=== PATIENT | male | born 1990 | race Two or more races ===

== ENCOUNTER 2016-12-12 12:58 | Emergency (ER) | payer SELFPAY ==
[~2016-12-12] VITALS: Ht 172.7 cm; Wt 73.9 kg
[2016-12-12 21:15] LABS: Urine Bilirubin Negative (Negative); Urine Blood Negative /uL (Negative); Urine Color Yellow (Yellow); Urine Glucose Normal (Normal); Urine Ketone Negative (Negative); Urine Nitrite Negative (Negative); Urine RBC <1 /hpf (0 - 3); Urine Squamous Epithelial Cell FEW /hpf (<5); Urine Urobilinogen Normal (Negative)
[2016-12-12] MEDS ORDERED: ACYCLOVIR 400 MG TAB PO ONE (22:15)
[2016-12-12] MEDS ORDERED: ASPirin 325 MG TAB PO ONE (22:15)
[2016-12-12] MEDS ORDERED: methylPREDNISolone SOD SUCC 125 MG/2 ML VL IV ONE (22:15)
[2016-12-13 00:08] LABS: Basophils # (auto) 0 uL; Basophils % (auto) 0.1 % (0.0-2.0); Eosinophils # (auto) 0 uL; Hematocrit 46.9 % (41.0-53.0); Hemoglobin 16.2 g/dL (13.5-17.5); Lymphocytes # (auto) 1.1 uL; Lymphocytes % (auto) 8.7 % (10.0-50.0); Mean Corpuscular Hemoglobin 31.4 pg (28.0-32.0); Mean Corpuscular Hgb Conc. 34.5 g/dL (32.0-36.0); Mean Corpuscular Volume 90.9 fL (80.0-100.0); Mean Platelet Volume 7.6 fL (7.4-10.4); Monocytes # (auto) 0.8 uL; Monocytes % (auto) 6.2 % (0.0-12.0); Neutrophils # (auto) 10.5 uL; Platelet Count (auto) 270 10^3/uL (140-450); Red Cell Distribution Width 13.8 % (11.6-16.0); White Blood Cell 12.3 10^3/uL (4.4-10.8)
[2016-12-13 00:23] VITALS: BP 131/79
[2016-12-13 00:27] LABS: Albumin 3.8 g/dL (3.4-5.0); Calcium 8.7 mg/dL (8.5-10.1); Potassium 4.1 mmol/L (3.5-5.1)
[2016-12-13 00:29] LABS: BUN/Creatinine Ratio 8.7
[2016-12-13 00:31] LABS: Bilirubin, Total 0.5 mg/dL (0.2-1.0); Total Protein 7.6 g/dL (6.4-8.2)
== END 2016-12-13 00:41 | disposition home or self-care (01) ==
LOC: ER 12:58
DX: G51.0 Bell's palsy (principal); F17.210 Nicotine dependence, cigarettes, uncomplicated; R51 Headache; F12.10 Cannabis abuse, uncomplicated; R20.0 Anesthesia of skin
CPT/HCPCS: 36415; 70450; 80053; 81001; 85025; 93005; 96374; 99285; J2930

== ENCOUNTER 2017-04-06 04:13 | Emergency (ER) | payer MEDICAID ==
[~2017-04-06] VITALS: Ht 175.3 cm; Wt 79.4 kg
[2017-04-06 04:26] VITALS: BP 122/77
== END 2017-04-06 07:31 | disposition left against medical advice (07) ==
LOC: ER 04:13
DX: M25.512 Pain in left shoulder (principal); M25.511 Pain in right shoulder; Z53.21 Procedure and treatment not carried out due to patient leaving prior to being seen by health care provider

== ENCOUNTER 2017-11-25 14:03 | Emergency (ER) | payer MEDICAID ==
[~2017-11-25] VITALS: Ht 172.7 cm; Wt 77.1 kg
[2017-11-25 16:46] VITALS: BP 144/88
== END 2017-11-25 17:09 | disposition home or self-care (01) ==
LOC: ER 14:03
DX: R07.81 Pleurodynia (principal); K92.0 Hematemesis; F17.210 Nicotine dependence, cigarettes, uncomplicated; W17.2XXA Fall into hole, initial encounter; Y93.55 Activity, bike riding; Y92.488 Other paved roadways as the place of occurrence of the external cause; Y99.8 Other external cause status
CPT/HCPCS: 71046

== ENCOUNTER 2021-04-16 12:26 | Emergency (ER) | payer MEDICAID ==
[~2021-04-16] VITALS: Ht 167.6 cm; Wt 72.6 kg
[2021-04-16 13:00] VITALS: BP 118/86
[2021-04-16] MEDS ORDERED: ACETAMINOPHEN 500 MG TAB PO ONE (13:45)
[2021-04-16] MEDS ORDERED: SODIUM CHLORIDE 0.9% 1,000 ML IV ONE (15:45)
[2021-04-16 16:01] LABS: Basophils # (auto) 0.1 10 ^3/uL (0-0.2); Basophils % (auto) 0.8 % (0.0-2.0); Eosinophils # (auto) 0.1 10 ^3/uL (0-0.8); Eosinophils % (auto) 0.8 % (0.0-7.0); Hematocrit 37.6 % (41.0-53.0); Hemoglobin 13.1 g/dL (13.5-17.5); Lymphocytes # (auto) 1.7 10 ^3/uL (0.4-5.4); Lymphocytes % (auto) 17.8 % (10.0-50.0); Mean Corpuscular Hemoglobin 31.3 pg (28.0-32.0); Mean Corpuscular Hgb Conc. 34.8 g/dL (32.0-36.0); Mean Corpuscular Volume 89.9 fL (80.0-100.0); Monocytes # (auto) 1.1 10 ^3/uL (0-1.3); Monocytes % (auto) 11.8 % (0.0-12.0); Neutrophils # (auto) 6.5 10 ^3/uL (1.6-8.6); Neutrophils % (auto) 68.8 % (37.0-80.0); Nucleated Red Blood Cells % 0.1 %; Platelet Count (auto) 275 10^3/uL (140-450); Red Blood Cells 4.19 10^6/uL (4.5-5.90); Red Cell Distribution Width 14.6 % (11.8-14.3); White Blood Cell 9.5 10^3/uL (4.4-10.8)
[2021-04-16 16:19] LABS: Albumin 3.1 g/dL (3.4-5.0); BUN/Creatinine Ratio 16.7; Calcium 9.5 mg/dL (8.5-10.1); Potassium 4.2 mmol/L (3.5-5.1)
[2021-04-16 16:22] LABS: Bilirubin, Total 0.7 mg/dL (0.2-1.0); Total Protein 8.9 g/dL (6.4-8.2)
== END 2021-04-16 17:15 | disposition home or self-care (01) ==
LOC: ER 12:26
DX: S93.402A Sprain of unspecified ligament of left ankle, initial encounter (principal); J06.9 Acute upper respiratory infection, unspecified; F17.210 Nicotine dependence, cigarettes, uncomplicated; Z20.822 Contact with and (suspected) exposure to COVID-19; X50.1XXA Overexertion from prolonged static or awkward postures, initial encounter; Y93.89 Activity, other specified; Y92.89 Other specified places as the place of occurrence of the external cause; Y99.0 Civilian activity done for income or pay
CPT/HCPCS: 36415; 73610; 80053; 82550; 85025; 85049; 87070; 87426; 87880; 96360; 99284; J7030

== ENCOUNTER 2022-01-01 08:31 | Emergency (ER) | payer MEDICAID ==
[~2022-01-01] VITALS: Ht 172.7 cm; Wt 79.4 kg
[2022-01-01 09:19] LABS: Basophils # (auto) 0 10 ^3/uL (0-0.2); Basophils % (auto) 0.5 % (0.0-2.0); Eosinophils # (auto) 0.2 10 ^3/uL (0-0.8); Eosinophils % (auto) 3.8 % (0.0-7.0); Hematocrit 39.3 % (41.0-53.0); Hemoglobin 13.2 g/dL (13.5-17.5); Lymphocytes # (auto) 2.1 10 ^3/uL (0.4-5.4); Lymphocytes % (auto) 38.9 % (10.0-50.0); Mean Corpuscular Hgb Conc. 33.6 g/dL (32.0-36.0); Mean Corpuscular Volume 83.2 fL (80.0-100.0); Monocytes # (auto) 0.6 10 ^3/uL (0-1.3); Monocytes % (auto) 10.4 % (0.0-12.0); Neutrophils # (auto) 2.5 10 ^3/uL (1.6-8.6); Neutrophils % (auto) 46.4 % (37.0-80.0); Nucleated Red Blood Cells % 0.1 %; Red Blood Cells 4.72 10^6/uL (4.5-5.90); Red Cell Distribution Width 13.8 % (11.8-14.3); White Blood Cell 5.5 10^3/uL (4.4-10.8)
[2022-01-01 09:35] LABS: Albumin 3.5 g/dL (3.4-5.0); Calcium 8.8 mg/dL (8.5-10.1); Potassium 3.6 mmol/L (3.5-5.1)
[2022-01-01 09:38] LABS: BUN/Creatinine Ratio 14.5; Bilirubin, Total 0.3 mg/dL (0.2-1.0); Total Protein 7.3 g/dL (6.4-8.2)
[2022-01-01 10:25] LABS: Urine Bacteria FEW /hpf (None Seen); Urine Blood Negative /uL (Negative); Urine Specific Gravity 1.015 (1.001-1.035); Urine Sperm PRESENT /hpf (None Seen); Urine WBC 1 /hpf (0 - 3)
[2022-01-01 11:39] VITALS: BP 118/77
== END 2022-01-01 12:02 | disposition home or self-care (01) ==
LOC: ER 08:31
DX: R60.9 Edema, unspecified (principal); F17.210 Nicotine dependence, cigarettes, uncomplicated; F12.10 Cannabis abuse, uncomplicated
CPT/HCPCS: 36415; 71046; 80053; 81001; 85025; 93005; 93970

== ENCOUNTER 2022-10-31 06:48 | Emergency (ER) | payer MEDICAID ==
[~2022-10-31] VITALS: Ht 177.8 cm; Wt 81.7 kg
[2022-10-31 08:21] LABS: Basophils # (auto) 0 10 ^3/uL (0-0.2); Basophils % (auto) 1.3 % (0.0-2.0); Eosinophils # (auto) 0 10 ^3/uL (0-0.8); Eosinophils % (auto) 1.5 % (0.0-7.0); Hematocrit 45.2 % (41.0-53.0); Hemoglobin 14.6 g/dL (13.5-17.5); Lymphocytes # (auto) 1.2 10 ^3/uL (0.4-5.4); Lymphocytes % (auto) 45.1 % (10.0-50.0); Mean Corpuscular Hemoglobin 28.2 pg (28.0-32.0); Mean Corpuscular Hgb Conc. 32.2 g/dL (32.0-36.0); Mean Corpuscular Volume 87.6 fL (80.0-100.0); Monocytes # (auto) 0.4 10 ^3/uL (0-1.3); Neutrophils # (auto) 1.1 10 ^3/uL (1.6-8.6); Neutrophils % (auto) 39.1 % (37.0-80.0); Nucleated Red Blood Cells % 0.4 %; Red Blood Cells 5.16 10^6/uL (4.5-5.90); Red Cell Distribution Width 16.3 % (11.8-14.3); White Blood Cell 2.7 10^3/uL (4.4-10.8)
[2022-10-31 08:40] LABS: Potassium 4.1 mmol/L (3.5-5.1)
[2022-10-31 08:45] LABS: Albumin 4.1 g/dL (3.4-5.0); BUN/Creatinine Ratio 5.8; Calcium 8.9 mg/dL (8.5-10.1)
[2022-10-31 08:47] LABS: Bilirubin, Total 0.9 mg/dL (0.2-1.0); Total Protein 8.1 g/dL (6.4-8.2)
[2022-10-31] MEDS: SODIUM CHLORIDE 0.9% 1,000 ML IV ONE (09:20)
[2022-10-31 10:20] LABS: Blood Alcohol 350.8 mg/dL (0-5)
[2022-10-31] MEDS: LORazepam 2MG/ML-1ML VIAL IV ONE ×2 (10:45→16:53)
[2022-10-31] MEDS: SODIUM CHLORIDE 0.9% 1,000 ML IVB ONE (11:00)
[2022-10-31] MEDS: MAALOX PLUS or MAALOX 30 ML PO ONE (11:28)
[2022-10-31] MEDS: LIDOCAINE VISCOUS 2% 15ML UD PO ONE (11:28)
[2022-10-31] MEDS: DONNATAL 5ml ORAL Elix (BELLADONNA ALK-PHENOBARB) PO ONE (11:28)
[2022-10-31] MEDS: PANTOPRAZOLE 40 MG TAB PO ONE (11:32)
[2022-10-31] MEDS: ONDANSETRON ODT 4 MG TAB PO ONE (11:33)
[2022-10-31 12:43] LABS: Amphetamine Screen, Urine NEGATIVE (NEGATIVE); Barbiturate Scree,Urine NEGATIVE (NEGATIVE); Benzodiazephine Screen, Urine POSITIVE (NEGATIVE); Cannabinoid Screen, Urine NEGATIVE (NEGATIVE); Cocaine Screen, Urine NEGATIVE (NEGATIVE); Opiate Scree,Urine NEGATIVE (NEGATIVE); Phencyclidine Screen, Urine NEGATIVE (NEGATIVE)
[2022-10-31 16:06] LABS: Albumin 3.4 g/dL (3.4-5.0); BUN/Creatinine Ratio 9.1; Potassium 3.9 mmol/L (3.5-5.1)
[2022-10-31 16:08] LABS: Bilirubin, Total 0.4 mg/dL (0.2-1.0)
[2022-10-31 16:18] LABS: Salicylate < 1.7 mg/dL (2.8-20.0)
[2022-10-31 16:26] LABS: Acetaminophen < 2.0 ug/mL (10-30)
[2022-10-31 17:41] VITALS: BP 110/69
[2022-10-31] MEDS ORDERED: LORA-655 PO (18:42)
[2022-10-31] MEDS ORDERED: ALUMCHW6 PO (18:42)
[2022-10-31] MEDS ORDERED: THIA100T13 PO (18:42)
[2022-10-31] MEDS ORDERED: FOLITAB19 OR (18:42)
== END 2022-11-01 02:04 | disposition home or self-care (01) ==
LOC: EDBD 06:48 → EDUNIT# 06:48 → ER 06:48
DX: K29.20 Alcoholic gastritis without bleeding (principal); F10.10 Alcohol abuse, uncomplicated; F41.0 Panic disorder [episodic paroxysmal anxiety]; R74.8 Abnormal levels of other serum enzymes; I10 Essential (primary) hypertension; Z79.899 Other long term (current) drug therapy; Y90.8 Blood alcohol level of 240 mg/100 ml or more
CPT/HCPCS: 36415; 80053; 80307; 80320; 80329; 83690; 85025; 96361; 96374; 96376; 99284; J2060; J7030; Q0162

== ENCOUNTER 2022-11-02 14:41 | Emergency (ER) | payer MEDICAID ==
[~2022-11-02] VITALS: Ht 170.2 cm; Wt 77.3 kg
[~2022-11-02 14:41] MED LIST: ALUMCHW6 PO; FOLITAB19 OR; LORA-655 PO; THIA100T13 PO
[2022-11-02] MEDS ORDERED: THIAMINE 100mg/ml INJ (200mg/2ml VIAL) IV ONE (15:00)
[2022-11-02] MEDS ORDERED: SODIUM CHLORIDE 0.9% 1,000 ML IV ONE ×2 (15:00)
[2022-11-02 15:09] LABS: Basophils # (auto) 0.1 10 ^3/uL (0-0.2); Basophils % (auto) 1.2 % (0.0-2.0); Eosinophils # (auto) 0.1 10 ^3/uL (0-0.8); Eosinophils % (auto) 1.5 % (0.0-7.0); Hematocrit 39.8 % (41.0-53.0); Hemoglobin 13.2 g/dL (13.5-17.5); Lymphocytes # (auto) 2.2 10 ^3/uL (0.4-5.4); Lymphocytes % (auto) 50.8 % (10.0-50.0); Mean Corpuscular Hemoglobin 29.1 pg (28.0-32.0); Mean Corpuscular Hgb Conc. 33.3 g/dL (32.0-36.0); Mean Corpuscular Volume 87.5 fL (80.0-100.0); Monocytes # (auto) 0.7 10 ^3/uL (0-1.3); Monocytes % (auto) 16.3 % (0.0-12.0); Neutrophils # (auto) 1.3 10 ^3/uL (1.6-8.6); Neutrophils % (auto) 30.2 % (37.0-80.0); Nucleated Red Blood Cells % 0.1 %; Red Blood Cells 4.55 10^6/uL (4.5-5.90); Red Cell Distribution Width 16.8 % (11.8-14.3); White Blood Cell 4.3 10^3/uL (4.4-10.8)
[2022-11-02 15:26] LABS: Albumin 3.6 g/dL (3.4-5.0); Potassium 3.5 mmol/L (3.5-5.1)
[2022-11-02 15:30] LABS: Bilirubin, Total 0.3 mg/dL (0.2-1.0); Total Protein 7.7 g/dL (6.4-8.2)
[2022-11-02 16:34] LABS: Amphetamine Screen, Urine NEGATIVE (NEGATIVE); Barbiturate Scree,Urine NEGATIVE (NEGATIVE); Benzodiazephine Screen, Urine POSITIVE (NEGATIVE); Cannabinoid Screen, Urine NEGATIVE (NEGATIVE); Cocaine Screen, Urine NEGATIVE (NEGATIVE); Opiate Scree,Urine NEGATIVE (NEGATIVE); Phencyclidine Screen, Urine NEGATIVE (NEGATIVE)
[2022-11-02] MEDS ORDERED: LORazepam 2MG/ML-1ML VIAL IV ONE (20:45)
[2022-11-03 03:30] VITALS: BP 132/55
== END 2022-11-03 07:31 | disposition left against medical advice (07) ==
LOC: EDBD 14:41 → ER 14:43
DX: F10.129 Alcohol abuse with intoxication, unspecified (principal); I10 Essential (primary) hypertension; R41.82 Altered mental status, unspecified; Y90.8 Blood alcohol level of 240 mg/100 ml or more
CPT/HCPCS: 36415; 80053; 80307; 80320; 85025; 96361; 96374; 96375; 99285; J2060; J3411; J7030

== ENCOUNTER 2022-11-28 14:19 | Emergency (ER) | payer MEDICAID ==
[~2022-11-28] VITALS: Ht 172.7 cm; Wt 78.8 kg
[2022-11-28 14:53] VITALS: BP 122/89
[2022-11-28] MEDS ORDERED: ACET-1080 PO (15:26)
[2022-11-28] MEDS ORDERED: ACETAMINOPHEN 500 MG TAB PO ONE (15:30)
== END 2022-11-28 15:29 | disposition home or self-care (01) ==
LOC: ER 14:19
DX: R51.9 Headache, unspecified (principal); I10 Essential (primary) hypertension; Z88.6 Allergy status to analgesic agent
CPT/HCPCS: 70450

== ENCOUNTER 2023-08-12 06:24 | Inpatient (IN) | payer MEDICAID ==
[~2023-08-12] VITALS: Ht 172.7 cm; Wt 95.5 kg
[~2023-08-12 06:24] MED LIST changes: +ACET-1080 PO
[2023-08-12 07:21] LABS: Basophils # (auto) 0 10 ^3/uL (0-0.2); Basophils % (auto) 0.5 % (0.0-2.0); Eosinophils # (auto) 0 10 ^3/uL (0-0.8); Hematocrit 47.4 % (41.0-53.0); Hemoglobin 16.3 g/dL (13.5-17.5); Lymphocytes # (auto) 1.5 10 ^3/uL (0.4-5.4); Lymphocytes % (auto) 23.4 % (10.0-50.0); Mean Corpuscular Hemoglobin 29.1 pg (28.0-32.0); Mean Corpuscular Hgb Conc. 34.4 g/dL (32.0-36.0); Mean Corpuscular Volume 84.4 fL (80.0-100.0); Monocytes # (auto) 0.7 10 ^3/uL (0-1.3); Monocytes % (auto) 11.3 % (0.0-12.0); Neutrophils # (auto) 4.3 10 ^3/uL (1.6-8.6); Neutrophils % (auto) 64.8 % (37.0-80.0); Red Blood Cells 5.61 10^6/uL (4.5-5.90); Red Cell Distribution Width 14.6 % (11.8-14.3); White Blood Cell 6.6 10^3/uL (4.4-10.8)
[2023-08-12] MEDS ORDERED: LORazepam 2MG/ML-1ML VIAL IV ONE (07:30)
[2023-08-12] MEDS ORDERED: SODIUM CHLORIDE 0.9% 3,000 ML IV ONE (07:30)
[2023-08-12] MEDS ORDERED: THIAMINE 100mg/ml INJ (200mg/2ml VIAL) IV ONE (07:30)
[2023-08-12 07:38] LABS: Alanine Aminotransferase 33 U/L (7-40); Albumin 5.3 g/dL (3.2-4.8); Alkaline Phosphatase 78 U/L (46-116); Anion Gap 17 (5-15); Aspartate Aminotransferase 76 U/L (13-40); BUN/Creatinine Ratio 13.6 (10.0-20.0); Bilirubin, Total 1.3 mg/dL (0.2-1.0); Blood Urea Nitrogen 26 mg/dL (9-23); Calcium 9.8 mg/dL (8.7-10.4); Carbon Dioxide 28 mmol/L (20-30); Chloride 84 mmol/L (98-107); Glucose 116 mg/dL (74-106); Potassium 3.9 mmol/L (3.5-5.1); Sodium 129 mmol/L (136-145); Total Protein 9.5 g/dL (5.7-8.2)
[2023-08-12 08:00] VITALS: PULSE 113; RESP 18; O2SAT 91
[2023-08-12] MEDS ORDERED: PANTOPRAZOLE 40 MG/10 ML VIAL INJ IV ONE (08:30)
[2023-08-12] MEDS ORDERED: SODIUM CHLORIDE 0.9% 2,000 ML IV ONE (09:45)
[2023-08-12] MEDS ORDERED: ONDANSETRON HCL 4 MG/2 ML VIAL IV PRN (09:45)
[2023-08-12] MEDS ORDERED: LORazepam 2MG/ML-1ML VIAL IV PRN (09:45)
[2023-08-12] MEDS ORDERED: MORPHINE SULFATE INJ 2 MG/ml SYRG IV PRN (09:45)
[2023-08-12] MEDS ORDERED: ACETAMINOPHEN 325 MG TAB PO PRN (09:45)
[2023-08-12] MEDS ORDERED: NITROGLYCERIN 0.4 MG SL TAB SL PRN (09:45)
[2023-08-12 10:13] LABS: Triglycerides 212 mg/dL (< 150)
[2023-08-12 10:14] LABS: LDL Cholesterol 152 mg/dL (< 100)
[2023-08-12 10:15] LABS: Cholesterol 234 mg/dL (< 200); HDL Cholesterol 54 mg/dL (40-59)
[2023-08-12] MEDS: SODIUM CHLORIDE 0.9% 1,000 ML IV SCH ×2 (10:36→18:05)
[2023-08-12] MEDS: PANTOPRAZOLE 40mg/50ML NS AE 50 ML IV SCH ×3 (10:41→20:16)
[2023-08-12] MEDS: FOLIC ACID 1 MG, MULTIPLE VITAMIN 10 ML, MAGNESIUM SULF SDV 50% 8 MEQ, THIAMINE INJ 100... INJ SCH ×5 (13:25)
[2023-08-12 16:00] VITALS: BP 135/95; PULSE 114; RESP 22; TEMP 99.4; O2SAT 95
[2023-08-12 16:25] VITALS: BP 150/83; PULSE 80; PULSE 83; RESP 16; RESP 19; TEMP 99.3; O2SAT 95
[2023-08-12 16:27] VITALS: BP 135/95; PULSE 114; RESP 22; TEMP 99.4; O2SAT 95
[2023-08-12 16:42] LABS: Amphetamine Screen, Urine Neg (NEGATIVE); Barbiturate Scree,Urine Neg (NEGATIVE); Benzodiazephine Screen, Urine Neg (NEGATIVE); Cocaine Screen, Urine Neg (NEGATIVE); Opiate Scree,Urine Neg (NEGATIVE); Phencyclidine Screen, Urine Neg (NEGATIVE)
[2023-08-12 16:43] LABS: Cannabinoid Screen, Urine Neg (NEGATIVE)
[2023-08-12 22:00] VITALS: BP 150/83; PULSE 101; RESP 16; TEMP 99.3; O2SAT 94
[2023-08-12] MEDS: SUCRALFATE 1 GM/10 ML ORAL SUSP PO SCH (22:41)
[2023-08-13] VITALS (8 sets, daily range): BP systolic 127–150; BP diastolic 86–98; PULSE 72–101; RESP 16–20; TEMP 98.1–98.7; O2SAT 92–99
[2023-08-13] MEDS: PANTOPRAZOLE 40mg/50ML NS AE 50 ML IV SCH ×5 (01:06→21:08)
[2023-08-13] MEDS: SODIUM CHLORIDE 0.9% 1,000 ML IV SCH ×3 (05:39→19:05)
[2023-08-13 06:11] LABS: Basophils # (auto) 0 10 ^3/uL (0-0.2); Basophils % (auto) 0.4 % (0.0-2.0); Eosinophils # (auto) 0 10 ^3/uL (0-0.8); Eosinophils % (auto) 0.5 % (0.0-7.0); Hematocrit 42.5 % (41.0-53.0); Hemoglobin 14.1 g/dL (13.5-17.5); Lymphocytes # (auto) 1.6 10 ^3/uL (0.4-5.4); Lymphocytes % (auto) 39.2 % (10.0-50.0); Mean Corpuscular Hemoglobin 28.4 pg (28.0-32.0); Mean Corpuscular Hgb Conc. 33.1 g/dL (32.0-36.0); Mean Corpuscular Volume 85.8 fL (80.0-100.0); Monocytes # (auto) 0.4 10 ^3/uL (0-1.3); Monocytes % (auto) 10.4 % (0.0-12.0); Neutrophils % (auto) 49.5 % (37.0-80.0); Nucleated Red Blood Cells % 0.2 %; Red Blood Cells 4.95 10^6/uL (4.5-5.90); Red Cell Distribution Width 14.4 % (11.8-14.3); White Blood Cell 4.1 10^3/uL (4.4-10.8)
[2023-08-13] MEDS: SUCRALFATE 1 GM/10 ML ORAL SUSP PO SCH ×4 (06:20→22:24)
[2023-08-13 06:21] LABS: Alanine Aminotransferase 30 U/L (7-40); Albumin 4.2 g/dL (3.2-4.8); Alkaline Phosphatase 61 U/L (46-116); Anion Gap 7 (5-15); BUN/Creatinine Ratio 15.8 (10.0-20.0); Blood Urea Nitrogen 16 mg/dL (9-23); Carbon Dioxide 28 mmol/L (20-30); Chloride 101 mmol/L (98-107); Glucose 93 mg/dL (74-106); Potassium 3.3 mmol/L (3.5-5.1); Sodium 136 mmol/L (136-145)
[2023-08-13 06:22] LABS: Aspartate Aminotransferase 74 U/L (13-40); Bilirubin, Total 1.7 mg/dL (0.2-1.0); Total Protein 7.3 g/dL (5.7-8.2)
[2023-08-13] MEDS ORDERED: LIDOCAINE VISCOUS 2% 15ML UD ONE (11:04)
[2023-08-13] MEDS ORDERED: SODIUM CHLORIDE LOCK 10 ML ONE (11:04)
[2023-08-13] MEDS: MORPHINE SULFATE INJ 2 MG/ml SYRG IV PRN ×2 (11:54→21:03)
[2023-08-13] MEDS: FOLIC ACID 1 MG, MULTIPLE VITAMIN 10 ML, MAGNESIUM SULF SDV 50% 8 MEQ, THIAMINE INJ 100... INJ SCH ×5 (12:00)
[2023-08-13] MEDS: fentaNYL CITRATE 100 MCG/2 ML VL ONE ×2 (16:39→16:42)
[2023-08-13] MEDS: MIDAZOLAM HCL 5 MG/ML-1ML VIAL ONE ×4 (16:39→16:48)
[2023-08-13] MEDS: diphenhdrAMINE HCL 50 MG/1 ML VL ONE ×2 (16:39→16:41)
[2023-08-14] VITALS (7 sets, daily range): BP systolic 111–145; BP diastolic 63–94; PULSE 68–98; RESP 16–20; TEMP 97.4–98.7; O2SAT 96–100
[2023-08-14] MEDS: PANTOPRAZOLE 40mg/50ML NS AE 50 ML IV SCH ×5 (02:10→21:49)
[2023-08-14] MEDS: SODIUM CHLORIDE 0.9% 1,000 ML IV SCH ×3 (04:38→20:05)
[2023-08-14 05:22] LABS: Basophils # (auto) 0 10 ^3/uL (0-0.2); Basophils % (auto) 0.5 % (0.0-2.0); Eosinophils # (auto) 0.1 10 ^3/uL (0-0.8); Eosinophils % (auto) 1.8 % (0.0-7.0); Hematocrit 42.3 % (41.0-53.0); Hemoglobin 14.2 g/dL (13.5-17.5); Lymphocytes # (auto) 1.3 10 ^3/uL (0.4-5.4); Lymphocytes % (auto) 31.6 % (10.0-50.0); Mean Corpuscular Hemoglobin 29.2 pg (28.0-32.0); Mean Corpuscular Hgb Conc. 33.6 g/dL (32.0-36.0); Mean Corpuscular Volume 86.8 fL (80.0-100.0); Monocytes # (auto) 0.4 10 ^3/uL (0-1.3); Monocytes % (auto) 9.9 % (0.0-12.0); Neutrophils # (auto) 2.3 10 ^3/uL (1.6-8.6); Neutrophils % (auto) 56.2 % (37.0-80.0); Nucleated Red Blood Cells % 0.2 %; Red Blood Cells 4.88 10^6/uL (4.5-5.90); Red Cell Distribution Width 14.4 % (11.8-14.3)
[2023-08-14 05:30] LABS: Chloride 103 mmol/L (98-107); Potassium 3.5 mmol/L (3.5-5.1); Sodium 139 mmol/L (136-145)
[2023-08-14 05:31] LABS: Anion Gap 9 (5-15); Carbon Dioxide 27 mmol/L (20-30)
[2023-08-14 05:32] LABS: Calcium 8.8 mg/dL (8.5-10.1)
[2023-08-14 05:36] LABS: Glucose 87 mg/dL (74-106)
[2023-08-14 05:37] LABS: BUN/Creatinine Ratio 11.3 (10.0-20.0); Blood Urea Nitrogen 11 mg/dL (9-23)
[2023-08-14] MEDS: SUCRALFATE 1 GM/10 ML ORAL SUSP PO SCH ×4 (06:32→21:49)
[2023-08-14] MEDS: MORPHINE SULFATE INJ 2 MG/ml SYRG IV PRN ×2 (06:40→12:38)
[2023-08-14] MEDS: FOLIC ACID 1 MG, MULTIPLE VITAMIN 10 ML, MAGNESIUM SULF SDV 50% 8 MEQ, THIAMINE INJ 100... INJ SCH ×5 (12:17)
[2023-08-15] MEDS: PANTOPRAZOLE 40mg/50ML NS AE 50 ML IV SCH ×3 (02:48→12:45)
[2023-08-15] MEDS: SODIUM CHLORIDE 0.9% 1,000 ML IV SCH ×4 (04:25→13:23)
[2023-08-15 05:24] VITALS: BP 140/89; PULSE 76; RESP 16; TEMP 98; O2SAT 97
[2023-08-15] MEDS: SUCRALFATE 1 GM/10 ML ORAL SUSP PO SCH ×2 (06:18→10:33)
[2023-08-15 08:00] VITALS: BP 143/88; PULSE 68; RESP 16; TEMP 98; O2SAT 98
[2023-08-15 09:00] VITALS: BP 143/88; PULSE 61; RESP 18; TEMP 98.2; O2SAT 97
[2023-08-15] MEDS ORDERED: FOLITAB19 PO (11:26)
[2023-08-15] MEDS ORDERED: PANT40TA2 PO (11:26)
[2023-08-15] MEDS ORDERED: SUCR1TAB22 OR (11:26)
[2023-08-15] MEDS: FOLIC ACID 1 MG, MULTIPLE VITAMIN 10 ML, MAGNESIUM SULF SDV 50% 8 MEQ, THIAMINE INJ 100... INJ SCH ×5 (12:00)
[2023-08-15 13:00] VITALS: BP 141/103; PULSE 70; RESP 18; TEMP 98.8; O2SAT 97
[2023-08-15 13:39] VITALS: BP 148/86; PULSE 64; RESP 18; TEMP 98.2; O2SAT 98
== END 2023-08-15 14:35 | disposition home or self-care (01) | DRG 241 ==
LOC: ER 06:24 → TELE 09:43 → TELE-EAST 16:12
PROVIDERS: ADMIT Nurse Practitioner Family; ATTEND Internal Medicine
PROC: 0DB68ZX Excision of Stomach, Via Natural or Artificial Opening Endoscopic, Diagnostic (ICD-10-PCS; 2023-08-13)
PROC: 0DB58ZX Excision of Esophagus, Via Natural or Artificial Opening Endoscopic, Diagnostic (ICD-10-PCS; 2023-08-13)
PROC: 0DB98ZX Excision of Duodenum, Via Natural or Artificial Opening Endoscopic, Diagnostic (ICD-10-PCS; principal; 2023-08-13 16:35)
DX: K29.81 Duodenitis with bleeding (principal); N17.0 Acute kidney failure with tubular necrosis; K29.71 Gastritis, unspecified, with bleeding; K76.6 Portal hypertension; K76.0 Fatty (change of) liver, not elsewhere classified; K22.10 Ulcer of esophagus without bleeding; K31.3 Pylorospasm, not elsewhere classified; F10.139 Alcohol abuse with withdrawal, unspecified; I10 Essential (primary) hypertension; R74.01 Elevation of levels of liver transaminase levels; F41.9 Anxiety disorder, unspecified; K44.9 Diaphragmatic hernia without obstruction or gangrene; K29.91 Gastroduodenitis, unspecified, with bleeding
CPT/HCPCS: 36415; 43239; 74176; 80048; 80053; 80061; 80307; 82105; 82378; 83036; 83735; 84443; 85025; 86850; 86900; 86901; C9113; G0378; J2250; J2405

== ENCOUNTER 2024-11-24 15:35 | Emergency (ER) | payer MEDICAID ==
[~2024-11-24] VITALS: Ht 175.3 cm; Wt 79.8 kg
[~2024-11-24 15:35] MED LIST changes: -FOLITAB19 OR; +FOLITAB19 PO; +PANT40TA2 PO; +SUCR1TAB31 OR
[2024-11-24 15:49] VITALS: BP 134/75; PULSE 76; RESP 20; O2SAT 97
[2024-11-24] MEDS: FLUORESCEIN SOD OPTH TEST STRIP RIGHTEYE ONE (16:36)
--- NOTE | 2024-11-24 16:53 | ED.PDOC ---
Eye-HPI HPI Comments 34 tyshawn old male presents to the ED with chief complaint of eye pain. Patient reports he was in his yard outside cleaning when a osiel of wind blew a lot of dirt into his right eye. Patient relays that it stung right away and he went to flush it out with water in his home for 30 minutes prior to his arrival in the ED, however, the pain persisted. Patient states it feels like something is stuck in his eye and is moving around. Patient denies any blurred vision, blindness, or other symptoms at this time. Chief Complaint: Eye Problem Time Seen by MD: 16:43 Primary Care Provider: [facility] Notes: Nurses Notes, Medications, Allergies Allergies: Coded Allergies: NO KNOWN ALLERGIES (Unverified , 05/24/15) Home Meds Active Scripts Sucralfate (CARAFATE) 1 Gm Tab, 1 GM OR QID, #120 TAB 5 Refills Prov:FRANCIS MELGOZA MD 08/15/23 Pantoprazole Sodium Sesquihydr (Protonix) 40 Mg Tab, 40 MG PO DAILY, #30 TAB 5 Refills Prov:FRANCIS MELGOZA MD 08/15/23 Folic Acid-Vitamin B6-Vitamin (Folbee) Tab, 1 TAB PO DAILY for 30 Days, #30 TAB Prov:FRANCIS MELGOZA MD 08/15/23 Acetaminophen (Tylenol 8 Hour Arthritis) 650 Mg Tab, 650 MG PO TID, #30 TAB Prov:MISSY MARY 11/28/22 Aluminum Hydroxide-Mag Carb (Gaviscon Extra Strength) 1 Chw Chw, 1 CHW PO QID PRN for 10 Days, #40 TAB.CHEW Prov:ITALIA MEYER MD 10/31/22 Thiamine HCl (Thiamine Hydrochloride) 100 Mg Tab, 100 MG PO BID for 30 Days, #60 TAB Prov:ITALIA MEYER MD 10/31/22 Lorazepam (Ativan) 0.5 Mg Tab, 1 TAB PO TID for 10 Days, #30 TAB Prov:ITALIA MEYER MD 10/31/22 Information Source: Patient Mode of Arrival: Ambulatory Timing: Hours Duration: Since onset Prehospital treatment: None Eye Location: Right Lids: Normal Conjunctiva: Injection Cornea: Right eye, Abrasion Pupils: Normal EOM: Normal Fundus: Normal Onset: Trauma Throat Exposed to: None History of: None Past Medical History Pediatric Medical History: Denies Immunizations: Current Medical History: Denies Operations: Denies Family History Family History: Reviewed,noncontributory to illness Social History Smoking: Non-Smoker Alcohol: Heavy Drugs: Denies Drug Use Lives In: Home Constitutional: denies: chills, diaphoresis, fatigue, fever, malaise, sweats, weakness, others EENTM: reports: eye pain, eye redness; denies: blurred vision, double vision, ear bleeding, ear discharge, ear drainage, ear pain, ear ringing, hearing loss, mouth pain, mouth swelling, nasal discharge, nose bleeding, nose congestion, nose pain, photophobia, tearing, throat pain, throat swelling, voice changes, others Respiratory: denies: cough, hemoptysis, orthopnea, SOB at rest, shortness of breath, SOB with excertion, stridor, wheezing, others Cardiovascular: denies: chest pain, dizzy spells, diaphoresis, Dyspnea on exertion, edema, irregular heart beat, left arm pain, lightheadedness, palpitations, PND, syncope, others Gastrointestinal: denies: abdomen distended, abdominal pain, blood streaked bowels, constipated, diarrhea, dysphagia, difficulty swallowing, hematemesis, melena, nausea, poor appetite, poor fluid intake, rectal bleeding, rectal pain, vomiting, others Genitourinary: denies: burning, dysuria, flank pain, frequency, hematuria, incontinence, penile discharge, penile sore, pain, testicle pain, testicle swelling, urgency, others Neurological: denies: dizziness, fainting, headache, left sided numbness, left sided weakness, numbness, paresthesia, pre-existing deficit, right sided numbness, right sided weakness, seizure, speech problems, tingling, tremors, weakness, others Musculoskeletal: denies: back pain, gout, joint pain, joint swelling, muscle pain, muscle stiffness, neck pain, others Integumetry: denies: bruises, change in color, change in hair/nails, dryness, laceration, lesions, lumps, rash, wounds, others Allergic/Immunocompromised: denies: Difficulty Healing, Frequent Infections, Hi ves, Itching, others Hematologic/Lymphatic: denies: anemia, blood clots, easy bleeding, easy bruising, swollen glands, others Endocrine: denies: excessive hunger, excessive sweating, excessive thirst, excessive urination, flushing, intolerance to cold, intolerance to heat, unexplained weight gain, unexplained weight loss, others Psychiatric: denies: anxiety, bipolar disorder, depression, hopeless, panic disorder, schizophrenia, sleepless, suicidal, others All Other Systems: Reviewed and Negative Physical Exam General Appearance: No Apparent Distress, Normal HEENT: Cornea (R) (Small corneal abrasion), Normal ENT Inspection, Pharynx Normal, Other Neck: Full Range of Motion, Non-Tender, Normal, Normal Inspection Respiratory: Chest Non-Tender, Lungs Clear, No Accessory Muscle Use, No Respiratory Distress, Normal Breath Sounds Cardiovascular: No Edema, No JVD, No Murmur, No Gallop, Normal Peripheral Pulses, Regular Rate/Rhythm Breast Exam: Deferred Gastrointestinal: No Organomegaly, Non Tender, No Pulsatile Mass, Normal Bowel Sounds, Soft Genitalia: Deferred Pelvic: Deferred Rectal: Deferred Extremities: No calf tenderness, Normal capillary refill, Normal inspection, Normal range of motion, Non-tender, No pedal edema Musculoskeletal : Apperance: Normal Neurologic: Alert, carton forming machine adjuster II-XII nml as Tested, No Motor Deficits, Normal Affect, Normal Mood, No Sensory Deficits Cerebellar Function: Normal Reflexes: Normal Skin: Dry, Normal Color, Warm Lymphatic: No Adenopathy Was a procedure done? Was a procedure done?: Yes Sedation Sedation?: No Foreign Body Removal Foreign body in: Eye Anesthetic: Other (Tetracaine) Prep: Prep, Saline, Irrigation Procedure: Not Identified, Other Informed consent obtained: Yes Risks/benefits/alt described: Yes Notes Dropped Tetracaine with fluorescein into right eye with positive small corneal abrasion noted. Irrigated with normal saline and ordered erythromycin for patient prior to discharge. EENT DIFF Eye: Conjunctivitis, Corneal Abrasion, Corneal Lacerations Ear: N/A Nose: N/A Mouth: N/A Sore Throat: N/A X-Ray, Labs, Meds, VS Vital Signs Date Time Temp Pulse Resp B/P (MAP) Pulse Ox O2 Delivery O2 Flow Rate FiO2 11/24/24 15:49 98.2 76 20 134/75 (94) 97 Time of 1ST Reevaluation: 17:43 Reevaluation 1ST: Unchanged Patient Education/Counseling: Diagnosis, Treatment Family Education/Counseling: No Family Present Additional Information I reviewed the following notes from patient's past medical encounters: 08/12/24 for body pain The following tests were ordered, and results were reviewed by me: None I reviewed and agreed with the following test results read by other providers: None Additional Information was gathered from interviewing the following independent historians: None I discussed treatment and results with medical personnel. Departure 1 Departure Time of Disposition: 17:02 (Patient has a corneal abrasion. We will discharge patient home with erythromycin and have him follow up with the his eye doctor.) Impression: Primary Impression: Corneal abrasion Qualified Codes: S05.01XA - Injury of conjunctiva and corneal abrasion witho ut foreign body, right eye, initial encounter Disposition: HOME / SELF CARE / HOMELESS Condition: Stable Additional Instructions: You have a corneal abrasion. This is a scratch of your eye. You were prescribed antibiotic ointment. Please take as directed. You should follow up with an eye doctor this week. If your symptoms worsen or you have any other concerns then please return to the ER. e-Prescriptions Erythromycin (Erythromycin) 5 Mg/Gm Oin 1 MG OP QID for 5 Days, #20 OIN Prov: KEVIN RUSS MD 11/24/24 Discharged With: Self Critical Care Note Critical Care Time?: No Stability Stability form required: No I personally scribed for KEVIN RUSS MD ([email or web address]) on 11/24/24 at 16:53. Electronically submitted by Casa Armstrong ([email or web address]). KEVIN RUSS MD Nov 24, 2024 16:53
[2024-11-24] MEDS ORDERED: ERY05OO OP (17:04)
[2024-11-24] MEDS: ERYTHROMY OPTH OINT 5mg/gm 1gm or 3.5gm tube OP ONE (18:18)
== END 2024-11-24 18:23 | disposition home or self-care (01) ==
LOC: ER 15:35
DX: S05.01XA Injury of conjunctiva and corneal abrasion without foreign body, right eye, initial encounter (principal); F10.10 Alcohol abuse, uncomplicated; Z79.899 Other long term (current) drug therapy; X58.XXXA Exposure to other specified factors, initial encounter; Y93.89 Activity, other specified; Y92.89 Other specified places as the place of occurrence of the external cause; Y99.8 Other external cause status

== ENCOUNTER 2025-01-07 13:45 | Inpatient (IN) | payer MEDICAID ==
[~2025-01-07] VITALS: Ht 175.3 cm; Wt 75.8 kg
[~2025-01-07 13:45] MED LIST changes: +ERY05OO OP
[2025-01-07] MEDS: ONDANSETRON HCL 4 MG/2 ML VIAL IV ONE ×2 (14:00→20:36)
[2025-01-07] MEDS: SODIUM CHLORIDE 0.9% 1,000 ML IV ONE ×3 (14:00→20:16)
[2025-01-07] MEDS: THIAMINE 100mg/ml INJ (200mg/2ml VIAL) IV ONE (14:00)
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
[2025-01-07 14:29] LABS: Basophils # (auto) 0 10 ^3/uL (0-0.2); Basophils % (auto) 0.5 % (0.0-2.0); Eosinophils # (auto) 0 10 ^3/uL (0-0.8); Hemoglobin 19.4 g/dL (13.5-17.5); Lymphocytes # (auto) 0.8 10 ^3/uL (0.4-5.4); Lymphocytes % (auto) 8.7 % (10.0-50.0); Mean Corpuscular Hemoglobin 31.8 pg (28.0-32.0); Mean Corpuscular Hgb Conc. 33.5 g/dL (32.0-36.0); Mean Corpuscular Volume 94.9 fL (80.0-100.0); Monocytes # (auto) 0.4 10 ^3/uL (0-1.3); Monocytes % (auto) 4.1 % (0.0-12.0); Neutrophils # (auto) 7.5 10 ^3/uL (1.6-8.6); Neutrophils % (auto) 86.7 % (37.0-80.0); Nucleated Red Blood Cells % 0.1 %; Platelet Count (auto) 255 10^3/uL (140-450); Red Cell Distribution Width 15.1 % (11.8-14.3); White Blood Cell 8.7 10^3/uL (4.4-10.8)
[2025-01-07 14:30] LABS: Hematocrit 57.9 % (41.0-53.0)
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
[2025-01-07 14:46] LABS: Alkaline Phosphatase 79 U/L (46-116); Anion Gap 26 (5-15); BUN/Creatinine Ratio 9.5 (10.0-20.0); Bilirubin, Total 1.1 mg/dL (0.2-1.0); Blood Urea Nitrogen 13 mg/dL (9-23); Calcium 10.2 mg/dL (8.7-10.4); Glucose 92 mg/dL (74-106); Lipase 51 U/L (12-53); Magnesium 2.1 mg/dL (1.6-2.6); Potassium 4.2 mmol/L (3.5-5.1); Sodium 138 mmol/L (136-145)
[2025-01-07 14:47] LABS: Alanine Aminotransferase 55 U/L (7-40); Albumin 5.9 g/dL (3.2-4.8); Aspartate Aminotransferase 116 U/L (13-40); Carbon Dioxide 19 mmol/L (20-31); Chloride 93 mmol/L (98-107); Total Protein 9.8 g/dL (5.7-8.2)
[2025-01-07 14:48] LABS: Lactic Acid w/Reflex 8.1 mmol/L (0.4-2.0)
[2025-01-07 15:30] LABS: Amphetamine Screen, Urine Neg (NEGATIVE); Barbiturate Scree,Urine Neg (NEGATIVE); Benzodiazephine Screen, Urine Neg (NEGATIVE); Cannabinoid Screen, Urine Pos (NEGATIVE); Cocaine Screen, Urine Neg (NEGATIVE); Opiate Scree,Urine Neg (NEGATIVE); Phencyclidine Screen, Urine Neg (NEGATIVE)
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
[2025-01-07 15:59] LABS: Blood Alcohol 118.7 mg/dL (<10)
[2025-01-07] MEDS: SODIUM CHLORIDE 0.9% 2,000 ML IV ONE (16:21)
[2025-01-07] MEDS: PIPERACILLIN-TAZOB 3.375GM 100 ML IV ONE (16:26)
[2025-01-07 17:37] LABS: Alanine Aminotransferase 38 U/L (7-40); Albumin 4.1 g/dL (3.2-4.8); Alkaline Phosphatase 54 U/L (46-116); Anion Gap 20 (5-15); Bilirubin, Total 0.9 mg/dL (0.2-1.0); Blood Urea Nitrogen 13 mg/dL (9-23); Carbon Dioxide 21 mmol/L (20-31); Chloride 101 mmol/L (98-107); Glucose 92 mg/dL (74-106); Sodium 142 mmol/L (136-145); Total Protein 6.7 g/dL (5.7-8.2)
[2025-01-07 17:43] LABS: Aspartate Aminotransferase 67 U/L (13-40); Calcium 7.8 mg/dL (8.7-10.4)
[2025-01-07 19:47] LABS: Lactic Acid w/Reflex 2.6 mmol/L (0.4-2.0)
[2025-01-07 20:04] VITALS: PULSE 100; RESP 14; O2SAT 93
[2025-01-07] MEDS ORDERED: IBUPROFEN 600 MG TAB PO PRN (21:30)
[2025-01-07] MEDS ORDERED: LORazepam 2MG/ML-1ML VIAL IV PRN (21:30)
[2025-01-07] MEDS ORDERED: DOCUSATE SOD 100 MG CAP PO PRN (21:30)
[2025-01-07] MEDS ORDERED: ONDANSETRON HCL 4 MG/2 ML VIAL IV PRN (21:30)
[2025-01-07] MEDS: LORazepam 2MG/ML-1ML VIAL IV ONE (23:07)
[2025-01-07] MEDS: CALCIUM GLUC 1,000mg/50ml-NS 50 ML IV ONE (23:07)
[2025-01-07] MEDS: SOD CHL 0.45% 1,000 ML IV SCH (23:07)
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
[2025-01-07] MEDS ORDERED: MORPHINE SULFATE INJ 2 MG/ml SYRG IV PRN (23:15)
[2025-01-07] MEDS ORDERED: NITROGLYCERIN 0.4 MG SL TAB SL PRN (23:15)
[2025-01-08] VITALS (7 sets, daily range): BP systolic 129–136; BP diastolic 81–98; PULSE 74–103; RESP 16–18; TEMP 98.1–98.8; O2SAT 95–98
[2025-01-08] MEDS: PIPERACILLIN-TAZOB 3.375GM 100 ML IV SCH (00:07)
[2025-01-08 06:04] LABS: Basophils # (auto) 0 10 ^3/uL (0-0.2); Basophils % (auto) 0.6 % (0.0-2.0); Eosinophils # (auto) 0 10 ^3/uL (0-0.8); Eosinophils % (auto) 0.4 % (0.0-7.0); Hematocrit 43.5 % (41.0-53.0); Lymphocytes # (auto) 1.2 10 ^3/uL (0.4-5.4); Lymphocytes % (auto) 27.3 % (10.0-50.0); Mean Corpuscular Hemoglobin 32.6 pg (28.0-32.0); Mean Corpuscular Hgb Conc. 34.5 g/dL (32.0-36.0); Mean Corpuscular Volume 94.6 fL (80.0-100.0); Monocytes # (auto) 0.5 10 ^3/uL (0-1.3); Monocytes % (auto) 11.4 % (0.0-12.0); Neutrophils # (auto) 2.6 10 ^3/uL (1.6-8.6); Neutrophils % (auto) 60.3 % (37.0-80.0); Nucleated Red Blood Cells % 0.1 %; Platelet Count (auto) 140 10^3/uL (140-450); Red Cell Distribution Width 14.4 % (11.8-14.3); White Blood Cell 4.2 10^3/uL (4.4-10.8)
[2025-01-08 06:18] LABS: Alanine Aminotransferase 38 U/L (7-40); Alkaline Phosphatase 51 U/L (46-116); Anion Gap 8 (5-15); BUN/Creatinine Ratio 17.3 (10.0-20.0); Blood Urea Nitrogen 13 mg/dL (9-23); Calcium 8.8 mg/dL (8.7-10.4); Carbon Dioxide 29 mmol/L (20-31); Chloride 100 mmol/L (98-107); Glucose 79 mg/dL (74-106); Potassium 3.9 mmol/L (3.5-5.1); Sodium 137 mmol/L (136-145); Total Protein 6.9 g/dL (5.7-8.2)
[2025-01-08 06:19] LABS: Albumin 4.2 g/dL (3.2-4.8)
[2025-01-08 06:23] LABS: Aspartate Aminotransferase 78 U/L (13-40); Bilirubin, Total 1.9 mg/dL (0.2-1.0)
[2025-01-08] MEDS: ACETAMINOPHEN 325 MG TAB PO ONE (08:54)
[2025-01-08] MEDS: PANTOPRAZOLE 40 MG/10 ML VIAL INJ IV SCH (08:54)
[2025-01-08] MEDS: MULTIPLE VITAMIN TAB PO SCH (08:55)
[2025-01-08] MEDS: LORazepam 2MG/ML-1ML VIAL IV ONE (08:55)
[2025-01-08] MEDS: THIAMINE 100mg/ml INJ (200mg/2ml VIAL) IV SCH (08:56)
[2025-01-08 09:09] LABS: INR 1.12 (0.9-1.15); Partial Thromboplastin Time 28.6 SEC (24.5-34.5); Prothrombin Time 11.7 sec (9.3-11.8)
[2025-01-08] MEDS: FOLIC ACID 1 MG in D5W 5% 50 ML INJ SCH (10:45)
[2025-01-08] MEDS: LORazepam 2MG/ML-1ML VIAL IV SCH (12:32)
--- NOTE | 2025-01-08 12:38 | DVH ---
EXAMINATION: MRI BRAIN HEAD WO CONTRAST INDICATION: TBI concussion COMPARISON: None TECHNIQUE: Multiplanar, multisequence magnetic resonance imaging of the brain was performed without t he use of intravenous contrast. FINDINGS: There is no restricted diffusion. The leon and white matter signal is appropriate. There is no eviden ce of hemorrhage, mass, mass effect or midline shift. There is no hydrocephalus or extra-axial fluid collection. The visualized intracranial vasculature demonstrates appropriate flow-voids. The sagittal midline structures appear unremarkable. The craniocervical junction is within normal limits. The keke varium demonstrates normal marrow signal. There are small retention cysts in the left maxillary sinus . The mastoid air cells are clear. IMPRESSION: 1. Unremarkable noncontrast MRI brain. HS:Y
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
[2025-01-09] VITALS (9 sets, daily range): BP systolic 128–152; BP diastolic 80–100; PULSE 70–90; RESP 16–20; TEMP 97.4–98.8; O2SAT 93–99
[2025-01-09 07:32] LABS: Basophils # (auto) 0 10 ^3/uL (0-0.2); Basophils % (auto) 0.9 % (0.0-2.0); Eosinophils # (auto) 0.1 10 ^3/uL (0-0.8); Eosinophils % (auto) 1.8 % (0.0-7.0); Hematocrit 46.7 % (41.0-53.0); Hemoglobin 16.5 g/dL (13.5-17.5); Lymphocytes # (auto) 1.3 10 ^3/uL (0.4-5.4); Lymphocytes % (auto) 36.9 % (10.0-50.0); Mean Corpuscular Hemoglobin 33.4 pg (28.0-32.0); Mean Corpuscular Hgb Conc. 35.3 g/dL (32.0-36.0); Mean Corpuscular Volume 94.5 fL (80.0-100.0); Monocytes # (auto) 0.3 10 ^3/uL (0-1.3); Monocytes % (auto) 7.7 % (0.0-12.0); Neutrophils # (auto) 1.8 10 ^3/uL (1.6-8.6); Neutrophils % (auto) 52.7 % (37.0-80.0); Nucleated Red Blood Cells % 0.1 %; Platelet Count (auto) 127 10^3/uL (140-450); Red Blood Cells 4.94 10^6/uL (4.5-5.90); Red Cell Distribution Width 13.9 % (11.8-14.3); White Blood Cell 3.5 10^3/uL (4.4-10.8)
[2025-01-09 07:51] LABS: Alanine Aminotransferase 57 U/L (7-40); Albumin 4.4 g/dL (3.2-4.8); Alkaline Phosphatase 58 U/L (46-116); Anion Gap 12 (5-15); Aspartate Aminotransferase 114 U/L (13-40); BUN/Creatinine Ratio 9.5 (10.0-20.0); Bilirubin, Total 1.6 mg/dL (0.2-1.0); Blood Urea Nitrogen 6 mg/dL (9-23); Calcium 9.6 mg/dL (8.7-10.4); Carbon Dioxide 26 mmol/L (20-31); Chloride 99 mmol/L (98-107); Glucose 85 mg/dL (74-106); Potassium 3.7 mmol/L (3.5-5.1); Sodium 137 mmol/L (136-145); Total Protein 7.4 g/dL (5.7-8.2)
[2025-01-09] MEDS: FOLIC ACID 1 MG TAB PO SCH (11:54)
[2025-01-09] MEDS: LORazepam 2MG/ML-1ML VIAL IV SCH (13:20)
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
[2025-01-10] VITALS (7 sets, daily range): BP systolic 124–151; BP diastolic 88–99; PULSE 66–102; RESP 16–18; TEMP 97.7–98.2; O2SAT 96–99
[2025-01-10 08:21] LABS: Basophils # (auto) 0 10 ^3/uL (0-0.2); Basophils % (auto) 0.6 % (0.0-2.0); Eosinophils # (auto) 0.1 10 ^3/uL (0-0.8); Eosinophils % (auto) 2.3 % (0.0-7.0); Hematocrit 47.7 % (41.0-53.0); Hemoglobin 16.7 g/dL (13.5-17.5); Lymphocytes # (auto) 1.3 10 ^3/uL (0.4-5.4); Lymphocytes % (auto) 30.7 % (10.0-50.0); Mean Corpuscular Hemoglobin 33.3 pg (28.0-32.0); Mean Corpuscular Hgb Conc. 34.9 g/dL (32.0-36.0); Mean Corpuscular Volume 95.3 fL (80.0-100.0); Monocytes # (auto) 0.4 10 ^3/uL (0-1.3); Monocytes % (auto) 9.3 % (0.0-12.0); Neutrophils # (auto) 2.3 10 ^3/uL (1.6-8.6); Neutrophils % (auto) 57.1 % (37.0-80.0); Nucleated Red Blood Cells % 0.2 %; Platelet Count (auto) 114 10^3/uL (140-450); Red Blood Cells 5.01 10^6/uL (4.5-5.90); Red Cell Distribution Width 14.1 % (11.8-14.3); White Blood Cell 4.1 10^3/uL (4.4-10.8)
[2025-01-10 08:38] LABS: Albumin 4.6 g/dL (3.2-4.8); Alkaline Phosphatase 66 U/L (46-116); Anion Gap 11 (5-15); BUN/Creatinine Ratio 13.5 (10.0-20.0); Bilirubin, Total 1.1 mg/dL (0.2-1.0); Blood Urea Nitrogen 10 mg/dL (9-23); Carbon Dioxide 27 mmol/L (20-31); Chloride 100 mmol/L (98-107); Glucose 93 mg/dL (74-106); Sodium 138 mmol/L (136-145); Total Protein 7.6 g/dL (5.7-8.2)
[2025-01-10 08:39] LABS: Alanine Aminotransferase 102 U/L (7-40); Aspartate Aminotransferase 165 U/L (13-40)
[2025-01-10] MEDS ORDERED: chlordiazePOXIDE HCL 5 MG CAP PO PRN (13:30)
[2025-01-10] MEDS: chlordiazePOXIDE HCL 5 MG CAP PO ONE (16:21)
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
[2025-01-10] MEDS: HYDROcodone-ACET 5/325MG TAB PO PRN (21:15)
[2025-01-11 01:00] VITALS: BP 153/108; PULSE 78; RESP 18; TEMP 98.3; O2SAT 99
[2025-01-11 05:00] VITALS: BP 137/95; PULSE 77; RESP 18; TEMP 97.8; O2SAT 97
[2025-01-11 06:48] LABS: Basophils # (auto) 0 10 ^3/uL (0-0.2); Basophils % (auto) 0.5 % (0.0-2.0); Eosinophils # (auto) 0.1 10 ^3/uL (0-0.8); Eosinophils % (auto) 2.6 % (0.0-7.0); Hematocrit 50.1 % (41.0-53.0); Hemoglobin 16.8 g/dL (13.5-17.5); Lymphocytes # (auto) 2.2 10 ^3/uL (0.4-5.4); Lymphocytes % (auto) 39.4 % (10.0-50.0); Mean Corpuscular Hemoglobin 32.6 pg (28.0-32.0); Mean Corpuscular Hgb Conc. 33.6 g/dL (32.0-36.0); Monocytes # (auto) 0.6 10 ^3/uL (0-1.3); Monocytes % (auto) 9.9 % (0.0-12.0); Neutrophils # (auto) 2.6 10 ^3/uL (1.6-8.6); Neutrophils % (auto) 47.6 % (37.0-80.0); Platelet Count (auto) 133 10^3/uL (140-450); Red Blood Cells 5.16 10^6/uL (4.5-5.90); Red Cell Distribution Width 14.1 % (11.8-14.3); White Blood Cell 5.6 10^3/uL (4.4-10.8)
[2025-01-11 06:57] LABS: Alkaline Phosphatase 69 U/L (46-116); Anion Gap 9 (5-15); Blood Urea Nitrogen 12 mg/dL (9-23); Carbon Dioxide 26 mmol/L (20-31); Chloride 102 mmol/L (98-107); Glucose 102 mg/dL (74-106); Potassium 3.9 mmol/L (3.5-5.1); Sodium 137 mmol/L (136-145)
[2025-01-11 07:00] LABS: Alanine Aminotransferase 131 U/L (7-40); Aspartate Aminotransferase 166 U/L (13-40); Bilirubin, Total 1.3 mg/dL (0.2-1.0)
[2025-01-11 08:00] VITALS: PULSE 93
[2025-01-11 09:00] VITALS: BP 131/97; PULSE 81; RESP 18; TEMP 97.8; O2SAT 99
[2025-01-11] MEDS ORDERED: CHL25C PO (09:22)
[2025-01-11 12:54] VITALS: BP 134/89; PULSE 73; RESP 18; TEMP 97.1; O2SAT 98
[2025-01-11] MEDS: chlordiazePOXIDE HCL 25 MG CAP PO ONE (13:02)
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
== END 2025-01-11 15:35 | disposition home or self-care (01) | DRG 241 ==
LOC: ER 13:45 → OVERFLOW 23:10 → TELE-WESTW 01-08 02:38
PROVIDERS: ADMIT Student in an Organized Health Care Education/Training Program; ATTEND Student in an Organized Health Care Education/Training Program
DX: K29.20 Alcoholic gastritis without bleeding (principal); R65.11 Systemic inflammatory response syndrome (SIRS) of non-infectious origin with acute organ dysfunction; N17.0 Acute kidney failure with tubular necrosis; E87.20 Acidosis, unspecified; S09.8XXA Other specified injuries of head, initial encounter; K76.0 Fatty (change of) liver, not elsewhere classified; S06.0X0A Concussion without loss of consciousness, initial encounter; E86.0 Dehydration; I10 Essential (primary) hypertension; F43.0 Acute stress reaction; E80.6 Other disorders of bilirubin metabolism; F41.1 Generalized anxiety disorder; R74.01 Elevation of levels of liver transaminase levels; Z79.2 Long term (current) use of antibiotics; F42.9 Obsessive-compulsive disorder, unspecified; Z79.899 Other long term (current) drug therapy; Y08.89XA Assault by other specified means, initial encounter; Y93.89 Activity, other specified; Y92.89 Other specified places as the place of occurrence of the external cause; Y99.8 Other external cause status; Y90.5 Blood alcohol level of 100-119 mg/100 ml; M43.06 Spondylolysis, lumbar region; T51.0X1A Toxic effect of ethanol, accidental (unintentional), initial encounter; F10.129 Alcohol abuse with intoxication, unspecified; F10.139 Alcohol abuse with withdrawal, unspecified
CPT/HCPCS: 36415; 70450; 70551; 71250; 72125; 74176; 80053; 80307; 80320; 82550; 83605; 83690; 83735; 84100; 84484; 85025; 85610; 85730; 96374; 96375; G0378; J2405; J2470; J2543; J7060

== ENCOUNTER 2025-03-29 12:41 | Emergency (ER) | payer MEDICAID ==
[~2025-03-29] VITALS: Ht 175.3 cm; Wt 72.2 kg
[~2025-03-29 12:41] MED LIST changes: +CHL25C PO
[2025-03-29 14:05] VITALS: BP 141/72; PULSE 105; RESP 16; TEMP 98; O2SAT 97
--- NOTE | 2025-03-29 14:20 | ED.PDOC ---
Eye-HPI HPI Comments 34 year old male presents to the ED for the c/c of Bilateral Eye Pain/erythema. Pt states that he was at work when he opened a new air compressor and notes that something sprayed out of it, setting to both eyes. Reports his eyes are burning and cannot see. Notes that he did flush his eyes out with cold water for 15x minutes. Pts eyes are noted to be red. Bilateral eye pain and redness Started: 12:00 pm Tried: rinsing under cold water Denies eye discharge Denies hearing changes, nausea, vomiting Chief Complaint: Eye Problem Time Seen by MD: 14:12 Primary Care Provider: UNKNOWN Reviewed Notes: Nurses Notes, Medications, Allergies Allergies: Coded Allergies: NO KNOWN ALLERGIES (Unverified , 05/24/15) Home Meds Active Scripts Erythromycin (Erythromycin) 5 Mg/Gm Oin, 1 APPLIC OP TID for 10 Days, #3.5 GRAMS 0 Refills Prov:KRISTOPHER ORTIZ PRINT FINISHING WORKER 03/29/25 Ketorolac Tromethamine (Ophth) (Ketorolac Tromethamine) 0.5 % Noreen, 1 DROP EACHEY E QID for 2 Days, #5 ML 0 Refills Prov:KRISTOPHER ORTIZ PRINT FINISHING WORKER 03/29/25 Chlordiazepoxide Hcl (Librium) 25 Mg Cp, 25 MG PO UD for 3 Days, #7 CAP take 2 tablets twice daily for 1 day, followed by 1 tablet twice daily for 1 day, followed by 1 tablet once daily for 1 day Prov:ONI YANG MD 01/11/25 Erythromycin (Erythromycin) 5 Mg/Gm Oin, 1 MG OP QID for 5 Days, #20 OIN Prov:KEVIN RUSS MD 11/24/24 Sucralfate (CARAFATE) 1 Gm Tab, 1 GM OR QID, #120 TAB 5 Refills Prov:FRANCIS MELGOZA MD 08/15/23 Pantoprazole Sodium Sesquihydr (Protonix) 40 Mg Tab, 40 MG PO DAILY, #30 TAB 5 Refills Prov:FRANCIS MELGOZA MD 08/15/23 Folic Acid-Vitamin B6-Vitamin (Folbee) Tab, 1 TAB PO DAILY for 30 Days, #30 TAB Prov:FRANCIS MELGOZA MD 08/15/23 Acetaminophen (Tylenol 8 Hour Arthritis) 650 Mg Tab, 650 MG PO TID, #30 TAB Prov:MISSY MARY 11/28/22 Aluminum Hydroxide-Mag Carb (Gaviscon Extra Strength) 1 Chw Chw, 1 CHW PO QID PRN for 10 Days, #40 TAB.CHEW Prov:ITALIA MEYER MD 10/31/22 Thiamine HCl (Thiamine Hydrochloride) 100 Mg Tab, 100 MG PO BID for 30 Days, #60 TAB Prov:ITALIA MEYER MD 10/31/22 Lorazepam (Ativan) 0.5 Mg Tab, 1 TAB PO TID for 10 Days, #30 TAB Prov:ITALIA MEYER MD 10/31/22 Information Source: Patient Mode of Arrival: Ambulatory Timing: Hours Duration: Since onset, Hours Prehospital treatment: None Quality: Pain, Red, Visual Loss Eye Location: Bilateral Lids: Normal Conjunctiva: Normal Pupils: Normal EOM: Normal Fundus: Normal Slit lamp exam: Normal Anterior chamber: Normal Mouth: Normal ENT Ear Exam: Normal Nose: Normal Sinuses: Normal Oropharynx: Normal Onset: Chemical Exposure History of: None Last Tetanus: Unknown Associated signs and symptoms: None Past Medical History PAST MEDICAL HISTORY: Anxiety, HTN Surgical History: Denies all surgeries Family History Family History: Reviewed,noncontributory to illness Social History Smoker: Non-Smoker Alcohol: Heavy Drugs: Denies Drug Use Lives In: Home Constitutional: denies: chills, diaphoresis, fatigue, fever, malaise, sweats, weakness, others EENTM: reports: eye pain; denies: blurred vision, double vision, ear bleeding, ear discharge, ear drainage, ear pain, ear ringing, eye redness, hearing loss, mouth pain, mouth swelling, nasal discharge, nose bleeding, nose congestion, nose pain, photophobia, tearing, throat pain, throat swelling, voice changes, others Respiratory: denies: cough, hemoptysis, orthopnea, SOB at rest, shortness of breath, SOB with excertion, stridor, wheezing, others Cardiovascular: denies: chest pain, dizzy spells, diaphoresis, Dyspnea on exertion, edema, irregular heart beat, left arm pain, lightheadedness, palpitations, PND, syncope, others Gastrointestinal: denies: abdomen distended, abdominal pain, blood streaked bowels, constipated, diarrhea, dysphagia, difficulty swallowing, hematemesis, melena, nausea, poor appetite, poor fluid intake, rectal bleeding, rectal pain, vomiting, others Genitourinary: denies: burning, dysuria, flank pain, frequency, hematuria, incontinence, penile discharge, penile sore, pain, testicle pain, testicle swelling, urgency, others Neurological: denies: dizziness, fainting, headache, left sided numbness, left sided weakness, numbness, paresthesia, pre-existing deficit, right sided numbness, right sided weakness, seizure, speech problems, tingling, tremors, weakness, others Musculoskeletal: denies: back pain, gout, joint pain, joint swelling, muscle pain, muscle stiffness, neck pain, others Integumetry: denies: bruises, change in color, change in hair/nails, dryness, laceration, lesions, lumps, rash, wounds, others Allergic/Immunocompromised: denies: Difficulty Healing, Frequent Infections, Hives, Itching, others Hematologic/Lymphatic: denies: anemia, blood clots, easy bleeding, easy bruising, swollen glands, others Endocrine: denies: excessive hunger, excessive sweating, excessive thirst, excessive urination, flushing, intolerance to cold, intolerance to heat, unexpl ained weight gain, unexplained weight loss, others Psychiatric: denies: anxiety, bipolar disorder, depression, hopeless, panic disorder, schizophrenia, sleepless, suicidal, others All Other Systems: Reviewed and Negative Physical Exam General Appearance: No Apparent Distress, Normal HEENT: Normal ENT Inspection, Pharynx Normal, TMs Normal Neck: Full Range of Motion, Non-Tender, Normal, Normal Inspection Respiratory: Chest Non-Tender, Lungs Clear, No Accessory Muscle Use, No Respiratory Distress, Normal Breath Sounds Cardiovascular: No Edema, No JVD, No Murmur, Normal Peripheral Pulses, Regular Rate/Rhythm Breast Exam: Deferred Gastrointestinal: Non Tender, No Pulsatile Mass, Normal Bowel Sounds, Soft Genitalia: Deferred Pelvic: Deferred Rectal: Deferred Extremities: No calf tenderness, Normal capillary refill, Normal inspection, Normal range of motion, Non-tender, No pedal edema Musculoskeletal : Apperance: Normal Neurologic: Alert, No Motor Deficits, Normal Mood Cerebellar Function: Normal Reflexes: Normal Skin: Dry, Normal Color, Warm Lymphatic: No Adenopathy Was a procedure done? Was a procedure done?: No EENT DIFF Eye: Allergic, Bacterial, Corneal Abrasion, Corneal Lacerations, Corneal Ulceration, Foreign Body-Conjunctiva, Foreign Body-Corneal, Foreign Body-Intrao cular X-Ray, Labs, Meds, VS Vital Signs Date Time Temp Pulse Resp B/P (MAP) Pulse Ox O2 Delivery O2 Flow Rate FiO2 03/29/25 14:05 98.0 105 16 141/72 (95) 97 98.0 03/29/25 14:05 105 16 97 Room Air 03/29/25 13:17 98.0 105 16 161/72 (101) 97 98.0 Current Medications Medications (Trade) Dose Ordered Sig/Nicole Route Start Time Stop Time Status Last Admin Lactated Ringer's 1,000 ml @ 1,000 mls/hr Q1H ONCE IV 03/29/25 14:15 03/29/25 14:26 DC 03/29/25 14:25 Diphtheria/ Tetanus/Acell Pertussis (Boostrix T-Dap) 0.5 ml ONCE ONCE IM 03/29/25 14:15 03/29/25 14:16 DC 03/29/25 14:45 Fluorescein Sodium (Ful-Marcela) 1 mg ONCE ONCE EACHEYE 03/29/25 15:00 03/29/25 15:01 DC 03/29/25 15:05 X-Ray, Labs, Meds, VS Comment 34 year old male presents to the ED for the c/c of Bilateral Eye Pain/erythema. Patient arrives alert and oriented, ABC's intact, afebrile, vital signs stable, saturating well in room air Differential diagnosis considered includes: corneal abrasion, uveitis, foreign body, retinal detachment unlikey given age and no history flashes nor floaters. Patient alert, vss, well appearing. PERRLA, EOMi, visual acuity not affected. Patient appears to have an uncomplicated corneal abrasion. No evidence of foreign body, globe rupture, iritis, conjunctivitis or any other process requiring immediate medical or surgical intervention at this time. IOP: 12 Right and 13 Left Slit lamp exam with evidence of corneal abrasion Patient had good improvement with proparacaine Eye was irrigated with LR using Vishnu Lens Will prescribe topical ABx and will refer for 24 hour follow up with an looping machine operator. Topical ketorolac prescribed for pain. Tetanus updated Tolerated medications with no adverse reaction. Additional MDM Review of External, Non-ED records: External records reviewed. Discussion with independent historian (EMS, family) history obtained from the pa tient/parents (if applicable) at bedside Chronic conditions affecting care: None Social determinants of health affecting care: None Consideration of admission (observation or admission): I considered escalation of care to admission for this patient, however given the reassuring workup, the patient is safe for outpatient management. Discussion with the Radiology: No Tests considered but not performed: Prescription medication considered but not given: Time of 1ST Reevaluation: 14:44 Reevaluation 1ST: Unchanged Patient Education/Counseling: Diagnosis, Treatment Family Education/Counseling: No Family Present Departure 1 Departure Time of Disposition: 16:32 Impression: Primary Impression: Corneal abrasion Qualified Codes: S05.00XA - Injury of conjunctiva and corneal abrasion without foreign body, unspecified eye, initial encounter Disposition: HOME / SELF CARE / HOMELESS Condition: Fair e-Prescriptions Erythromycin (Erythromycin) 5 Mg/Gm Oin 1 APPLIC OP TID for 10 Days, #3.5 GRAMS 0 Refills Prov: KRISTOPHER ORTIZ NP 03/29/25 Ketorolac Tromethamine (Ophth) (Ketorolac Tromethamine) 0.5 % Noreen 1 DROP EACHEYE QID for 2 Days, #5 ML 0 Refills Prov: KRISTOPHER ORTIZ NP 03/29/25 Critical Care Note Critical Care Time?: No Stability Stability form required: No Heart Score Heart Score: Heart Score Response (Comments) Value History N/A 0 EKG N/A 0 Age N/A 0 Risk Factors N/A 0 Troponin N/A 0 Total 0 I personally scribed for KRISTOPHER ORTIZ NP ([email or web address]) on 03/29/25 at 14:20. Kaylie ctronically submitted by Patrick Chung ([email or web address]). KRISTOPHER ORTIZ NP Mar 29, 2025 14:20
[2025-03-29] MEDS: LACTATED RINGER'S 1,000 ML IV ONE (14:25)
[2025-03-29] MEDS: TETANUS-DIPTH-ACEL PERTUSSIS 0.5ML SYR Tdap IM ONE (14:45)
[2025-03-29] MEDS: FLUORESCEIN SOD OPTH TEST STRIP EACHEYE ONE (15:05)
[2025-03-29] MEDS ORDERED: ERY05OO OP (16:33)
[2025-03-29] MEDS ORDERED: KETO0.5S31 EACHEYE (16:33)
== END 2025-03-29 16:33 | disposition home or self-care (01) ==
LOC: ER 12:41
DX: S05.02XA Injury of conjunctiva and corneal abrasion without foreign body, left eye, initial encounter (principal); S05.01XA Injury of conjunctiva and corneal abrasion without foreign body, right eye, initial encounter; I10 Essential (primary) hypertension; F41.9 Anxiety disorder, unspecified; F10.20 Alcohol dependence, uncomplicated; Z79.899 Other long term (current) drug therapy; X58.XXXA Exposure to other specified factors, initial encounter; Y93.89 Activity, other specified; Y92.89 Other specified places as the place of occurrence of the external cause; Y99.8 Other external cause status; Y90.9 Presence of alcohol in blood, level not specified
CPT/HCPCS: 90471; 90715; 96360; 96372

== ENCOUNTER 2025-03-30 07:50 | Emergency (ER) | payer MEDICAID ==
[~2025-03-30] VITALS: Ht 175.3 cm; Wt 73.3 kg
[~2025-03-30 07:50] MED LIST changes: +KETO0.5S31 EACHEYE
[2025-03-30 09:18] VITALS: BP 152/113; PULSE 93; RESP 16; TEMP 98.1; O2SAT 97
--- NOTE | 2025-03-30 09:23 | ED.PDOC ---
History of Present Illness HPI Comments 34-year-old male presents with a chief complaint of left eye pain s/p air compressor use onset yesterday. Patient was seen here yesterday and evaluated and was given a prescription medication for his eye. Patient states symptom pain is worsening and that he has been applying the medications, but they are n ot helping. Patient states that he is now developing a headache. No other symptoms or modifying factors present at this time. Denies eye discharge Denies hearing changes, nausea, vomiting Denies eye pain with movement, eye pain in general, difficulty keeping eye open, feeling of something stuck in the eye, sensitivity to light Chief Complaint: Eye Problem Time Seen by MD: 09:08 Primary Care Provider: UNKNOWN Reviewed Notes: Nurses Notes, Medications, Allergies Allergies: Coded Allergies: NO KNOWN ALLERGIES (Unverified , 05/24/15) Home Meds Active Scripts Erythromycin (Erythromycin) 5 Mg/Gm Oin, 1 APPLIC OP TID for 10 Days, #3.5 GRAMS 0 Refills Prov:KRISTOPHER ORTIZ MOTOR COACH OPERATOR 03/29/25 Ketorolac Tromethamine (Ophth) (Ketorolac Tromethamine) 0.5 % Noreen, 1 DROP EACHEYE QID for 2 Days, #5 ML 0 Refills Prov:KRISTOPHER ORTIZ MOTOR COACH OPERATOR 03/29/25 Chlordiazepoxide Hcl (Librium) 25 Mg Cp, 25 MG PO UD for 3 Days, #7 CAP take 2 tablets twice daily for 1 day, followed by 1 tablet twice daily for 1 day, followed by 1 tablet once daily for 1 day Prov:ONI YANG MD 01/11/25 Erythromycin (Erythromycin) 5 Mg/Gm Oin, 1 MG OP QID for 5 Days, #20 OIN Prov:KEVIN RUSS MD 11/24/24 Sucralfate (CARAFATE) 1 Gm Tab, 1 GM OR QID, #120 TAB 5 Refills Prov:FRANCIS MELGOZA MD 08/15/23 Pantoprazole Sodium Sesquihydr (Protonix) 40 Mg Tab, 40 MG PO DAILY, #30 TAB 5 Refills Prov:FRANCIS MELGOZA MD 08/15/23 Folic Acid-Vitamin B6-Vitamin (Folbee) Tab, 1 TAB PO DAILY for 30 Days, #30 TAB Prov:FRANCIS MELGOZA MD 08/15/23 Acetaminophen (Tylenol 8 Hour Arthritis) 650 Mg Tab, 650 MG PO TID, #30 TAB Prov:MISSY MARY 11/28/22 Aluminum Hydroxide-Mag Carb (Gaviscon Extra Strength) 1 Chw Chw, 1 CHW PO QID PRN for 10 Days, #40 TAB.CHEW Prov:ITALIA MEYER MD 10/31/22 Thiamine HCl (Thiamine Hydrochloride) 100 Mg Tab, 100 MG PO BID for 30 Days, #60 TAB Prov:ITALIA MEYER MD 10/31/22 Lorazepam (Ativan) 0.5 Mg Tab, 1 TAB PO TID for 10 Days, #30 TAB Prov:ITALIA MEYER MD 10/31/22 Information Source: Patient Mode of Arrival: Ambulatory Severity: Moderate Timing: Days Duration: Since onset Prehospital treatment: None Past Medical History PAST MEDICAL HISTORY: Anxiety, HTN Surgical History: Denies all surgeries Family History Family History: Reviewed,noncontributory to illness Social History Smoker: Non-Smoker Alcohol: Heavy Drugs: Denies Drug Use Lives In: Home Constitutional: denies: chills, diaphoresis, fatigue, fever, malaise, sweats, weakness, others EENTM: reports: eye pain; denies: blurred vision, double vision, ear bleeding, ear discharge, ear drainage, ear pain, ear ringing, eye redness, hearing loss, mouth pain, mouth swelling, nasal discharge, nose bleeding, nose congestion, nose pain, photophobia, tearing, throat pain, throat swelling, voice changes, others Respiratory: denies: cough, hemoptysis, orthopnea, SOB at rest, shortness of breath, SOB with excertion, stridor, wheezing, others Cardiovascular: denies: chest pain, dizzy spells, diaphoresis, Dyspnea on exertion, edema, irregular heart beat, left arm pain, lightheadedness, palpitat ions, PND, syncope, others Gastrointestinal: denies: abdomen distended, abdominal pain, blood streaked bow els, constipated, diarrhea, dysphagia, difficulty swallowing, hematemesis, melena, nausea, poor appetite, poor fluid intake, rectal bleeding, rectal pain, vomiting, others Genitourinary: denies: burning, dysuria, flank pain, frequency, hematuria, incontinence, penile discharge, penile sore, pain, testicle pain, testicle swelling, urgency, others Neurological: denies: dizziness, fainting, headache, left sided numbness, left sided weakness, numbness, paresthesia, pre-existing deficit, right sided numbness, right sided weakness, seizure, speech problems, tingling, tremors, weakness, others Musculoskeletal: denies: back pain, gout, joint pain, joint swelling, muscle pain, muscle stiffness, neck pain, others Integumetry: denies: bruises, change in color, change in hair/nails, dryness, laceration, lesions, lumps, rash, wounds, others Allergic/Immunocompromised: denies: Difficulty Healing, Frequent Infections, Hives, Itching, others Hematologic/Lymphatic: denies: anemia, blood clots, easy bleeding, easy bruising, swollen glands, others Endocrine: denies: excessive hunger, excessive sweating, excessive thirst, excessive urination, flushing, intolerance to cold, intolerance to heat, unexplained weight gain, unexplained weight loss, others Psychiatric: denies: anxiety, bipolar disorder, depression, hopeless, panic disorder, schizophrenia, sleepless, suicidal, others All Other Systems: Reviewed and Negative Physical Exam General Appearance: No Apparent Distress, Normal, Other (NO ORBITAL SWELLING, NO ERYTHEMA, NO OCULAR DISCHARGE, SCLERA IS MILDLY INJECTED, EOM INTACT, PERRLA, NO FB WITH LID EVERSION) HEENT: Normal ENT Inspection, Pharynx Normal, TMs Normal, Other Neck: Full Range of Motion, Non-Tender, Normal, Normal Inspection Respiratory: Chest Non-Tender, Lungs Clear, No Accessory Muscle Use, No Respiratory Distress, Normal Breath Sounds Cardiovascular: No Edema, No JVD, No Murmur, No Gallop, Normal Peripheral Pulses, Regular Rate/Rhythm Breast Exam: Deferred Gastrointestinal: No Organomegaly, Non Tender, No Pulsatile Mass, Normal Bowel Sounds, Soft Genitalia: Deferred Pelvic: Deferred Rectal: Deferred Extremities: No calf tenderness, Normal capillary refill, Normal inspection, Normal range of motion, Non-tender, No pedal edema Musculoskeletal : Apperance: Normal Neurologic: Alert, doorperson or luggage porter II-XII nml as Tested, No Motor Deficits, Normal Affect, Normal Mood, No Sensory Deficits Cerebellar Function: Normal Reflexes: Normal Skin: Dry, Normal Color, Warm Lymphatic: No Adenopathy Was a procedure done? Was a procedure done?: No Differential Dx Considerations may include: corneal abrasion X-Ray, Labs, Meds, VS Vital Signs Date Time Temp Pulse Resp B/P (MAP) Pulse Ox O2 Delivery O2 Flow Rate FiO2 03/30/25 09:18 93 16 97 Room Air 03/30/25 09:18 98.1 93 16 152/113 (126) 97 98.1 03/30/25 08:29 98.1 93 16 152/93 (112) 97 98.1 Lab Test 03/30/25 09:20 Range/Units White Blood Count 4.6 4.4-10.8 10^3/uL Red Blood Count 4.97 4.5-5.90 10^6/uL Hemoglobin 16.4 13.5-17.5 g/dL Hematocrit 47.1 41.0-53.0 % Mean Corpuscular Volume 94.8 80.0-100.0 fL Mean Corpuscular Hemoglobin 33.0 H 28.0-32.0 pg Mean Corpuscular Hemoglobin Concent 34.8 32.0-36.0 g/dL Red Cell Distribution Width 14.6 H 11.8-14.3 % Platelet Count 168 140-450 10^3/uL Mean Platelet Volume 8.0 6.9-10.8 fL Neutrophils (%) (Auto) 67.5 37.0-80.0 % Lymphocytes (%) (Auto) 21.6 10.0-50.0 % Monocytes (%) (Auto) 9.7 0.0-12.0 % Eosinophils (%) (Auto) 0.2 0.0-7.0 % Basophils (%) (Auto) 1.0 0.0-2.0 % Neutrophils # (Auto) 3.1 1.6-8.6 10 ^3/uL Lymphocytes # (Auto) 1.0 0.4-5.4 10 ^3/uL Monocytes # (Auto) 0.4 0-1.3 10 ^3/uL Eosinophils # (Auto) 0 0-0.8 10 ^3/uL Basophils # (Auto) 0 0-0.2 10 ^3/uL Nucleated Red Blood Cells 0.1 % Sodium Level 140 136-145 mmol/L Potassium Level 3.6 3.5-5.1 mmol/L Chloride Level 101 98-107 mmol/L Carbon Dioxide Level 24 20-31 mmol/L Anion Gap 15 5-15 Blood Urea Nitrogen < 5 L 9-23 mg/dL Creatinine 0.70 0.700-1.30 mg/dL Glomerular Filtration Rate Calc 123 >90 mL/min BUN/Creatinine Ratio 7.1 L 10.0-20.0 Serum Glucose 108 H 74-106 mg/dL Calcium Level 10.1 8.7-10.4 mg/dL X-Ray, Labs, Meds, VS Comment 34-year-old male presents with a chief complaint of left eye pain s/p air com pressor use onset yesterday. PATIENT ARRIVES ALERT AND ORIENTED, ABC'S INTACT, AFEBRILE, VITAL SIGNS STABLE, SATURATING WELL IN ROOM AIR LABS WERE ORDERED. CBC WAS ORDERED TO EXCLUDE ANEMIA, BLOOD LOSS, OR INFECTION. BMP WAS ORDERED TO EXCLUDE ELECTROLYTE ABNORMALITIES, RENAL FAILURE, DEHYDRATION, HYPERGLYCEMIA On reevaluation, patient had symptomatic improvement. Patient is stable for discharge at this time. External notes reviewed. Test results and diagnostic imaging interpreted. All diagnostic findings, discharge care, education and instructions provided Follow-up with optometry and PCP Patient verbalized understanding and agreed to treatment plan Vital signs stable, afebrile, no acute distress noted Patient ambulatory with strong steady gait Advised to return precautions for any new or worsening symptoms, return to ER immediately for re-evaluation Patient is aware that the purpose of this visit was for an acute medical emergency requiring emergent stabilization. Chronic conditions, including malignancies have not been ruled out. Patient is instructed to follow up with PCP as directed and discharge instructions for continued care and workup. If unable to arrange follow-up, patient is to return to the emergency department for reassessment. Patient (parent or legal guardian if applicable) was given verbal and written discharge instructions and acknowledges understanding. ADDITIONAL MDM REVIEW OF EXTERNAL, NON-ED RECORDS: EXTERNAL RECORDS REVIEWED. DISCUSSION WITH INDEPENDENT HISTORIAN (EMS, FAMILY) HISTORY OBTAINED FROM THE PATIENT/PARENTS (IF APPLICABLE) AT BEDSIDE CHRONIC CONDITIONS AFFECTING CARE: NONE SOCIAL DETERMINANTS OF HEALTH AFFECTING CARE: NONE CONSIDERATION OF ADMISSION (OBSERVATION OR ADMISSION): I CONSIDERED ESCALATION OF CARE TO ADMISSION FOR THIS PATIENT, HOWEVER GIVEN THE REASSURING WORKUP, THE PATIENT IS SAFE FOR OUTPATIENT MANAGEMENT. Time of 1ST Reevaluation: 09:38 Reevaluation 1ST: Improved Patient Education/Counseling: Diagnosis, Treatment Family Education/Counseling: Diagnosis, Treatment SEPSIS Sepsis Screen Date sepsis recognized/suspect: Mar 30, 2025 Time Sepsis recognized/suspect: 0812 Recent Procedure: No On Antibiotic Therapy: No Respiratory Rate >20: No Heart Rate >90: Yes Temp<36 C (96.8 F) or >38.3 C: No SBP <90 or MAP <65 mmHG: No New Acute Mental Status Change: No Is the patient on CPAP, BIPAP,: No Orders/Vitals/Labs Vital Signs Date Time Temp Pulse Resp B/P (MAP) Pulse Ox O2 Delivery O2 Flow Rate FiO2 03/30/25 09:18 93 16 97 Room Air 03/30/25 09:18 98.1 93 16 152/113 (126) 97 98.1 03/30/25 08:29 98.1 93 16 152/93 (112) 97 98.1 Laboratory Tests Test 03/30/25 09:20 White Blood Count 4.6 10^3/uL (4.4-10.8) Departure 1 Departure Time of Disposition: 09:59 Impression: Primary Impression: Corneal abrasion Qualified Codes: S05.00XS - Injury of conjunctiva and corneal abrasion without foreign body, unspecified eye, sequela Disposition: 01 HOME / SELF CARE / HOMELESS Condition: Fair Critical Care Note Critical Care Time?: No Stability Stability form required: No Heart Score Heart Score: Heart Score Response (Comments) Value History N/A 0 EKG N/A 0 Age N/A 0 Risk Factors N/A 0 Troponin N/A 0 Total 0 I personally scribed for KRISTOPHER ORTIZ NP ([email or web address]) on 03/30/25 at 09:23. Electronically submitted by Josue Griffith ([email or web address]). KRISTOPHER ORTIZ NP Mar 30, 2025 09:23
[2025-03-30 09:33] LABS: Basophils # (auto) 0 10 ^3/uL (0-0.2); Eosinophils # (auto) 0 10 ^3/uL (0-0.8); Eosinophils % (auto) 0.2 % (0.0-7.0); Hematocrit 47.1 % (41.0-53.0); Hemoglobin 16.4 g/dL (13.5-17.5); Lymphocytes % (auto) 21.6 % (10.0-50.0); Mean Corpuscular Hgb Conc. 34.8 g/dL (32.0-36.0); Mean Corpuscular Volume 94.8 fL (80.0-100.0); Monocytes # (auto) 0.4 10 ^3/uL (0-1.3); Monocytes % (auto) 9.7 % (0.0-12.0); Neutrophils # (auto) 3.1 10 ^3/uL (1.6-8.6); Neutrophils % (auto) 67.5 % (37.0-80.0); Nucleated Red Blood Cells % 0.1 %; Platelet Count (auto) 168 10^3/uL (140-450); Red Blood Cells 4.97 10^6/uL (4.5-5.90); Red Cell Distribution Width 14.6 % (11.8-14.3); White Blood Cell 4.6 10^3/uL (4.4-10.8)
[2025-03-30 09:46] LABS: Chloride 101 mmol/L (98-107); Potassium 3.6 mmol/L (3.5-5.1); Sodium 140 mmol/L (136-145)
[2025-03-30 09:47] LABS: Anion Gap 15 (5-15); Carbon Dioxide 24 mmol/L (20-31)
[2025-03-30 09:48] LABS: Calcium 10.1 mg/dL (8.7-10.4)
[2025-03-30 09:56] LABS: BUN/Creatinine Ratio 7.1 (10.0-20.0); Blood Urea Nitrogen < 5 mg/dL (9-23); Glucose 108 mg/dL (74-106)
== END 2025-03-30 10:00 | disposition home or self-care (01) ==
LOC: ER 07:50
DX: S05.02XA Injury of conjunctiva and corneal abrasion without foreign body, left eye, initial encounter (principal); I10 Essential (primary) hypertension; F41.9 Anxiety disorder, unspecified; Z79.899 Other long term (current) drug therapy; X58.XXXA Exposure to other specified factors, initial encounter; Y93.89 Activity, other specified; Y92.89 Other specified places as the place of occurrence of the external cause; Y99.8 Other external cause status
CPT/HCPCS: 36415; 80048; 85025

== ENCOUNTER 2025-05-11 07:58 | Emergency (ER) | payer MEDICAID ==
[~2025-05-11] VITALS: Ht 175.3 cm; Wt 76.4 kg
[2025-05-11 08:08] VITALS: PULSE 94; RESP 16; O2SAT 96
--- NOTE | 2025-05-11 08:26 | ED.PDOC ---
History of Present Illness HPI Comments 34-year-old male with a history of gout, depression, anxiety, hernia, hypertension, and alcohol use presents to the ED for the chief complaint of a 7/10 right-sided frontal/occipital headache, with a associated right eye blurriness and pressure, drooling, photophobia, and diarrhea. Patient states this headache started 1 week ago, and notes of taking ibuprofen, but no alleviation. Patient is noted to have had a Brain MRI performed on 12/19/2024, results were noted to be unremarkable. Patient denies any nausea, vomiting, abdominal pain, or any other associated symptoms,modifiers, or factors at this time. Denies fever, chills, night sweats Denies persistent nausea Denies vomiting Denies thunderclap headache Denies head trauma around the time headache started Denies family history of brain issues persistent headaches Denies taking any blood thinner medication Denies focal loss of strength/sensation or changes in speech Chief Complaint: Headache Time Seen by MD: 08:19 Primary Care Provider: JUAN LUIS Reviewed Notes: Nurses Notes, Medications, Allergies Allergies: Coded Allergies: NO KNOWN ALLERGIES (Unverified , 05/24/15) Home Meds Active Scripts Erythromycin (Erythromycin) 5 Mg/Gm Oin, 1 APPLIC OP TID for 10 Days, #3.5 GRAMS 0 Refills Prov:KRISTOPHER ORTIZ NP 03/29/25 Ketorolac Tromethamine (Ophth) (Ketorolac Tromethamine) 0.5 % Noreen, 1 DROP EACHEYE QID for 2 Days, #5 ML 0 Refills Prov:KRISTOPHER ORTIZ NP 03/29/25 Chlordiazepoxide Hcl (Librium) 25 Mg Cp, 25 MG PO UD for 3 Days, #7 CAP take 2 tablets twice daily for 1 day, followed by 1 tablet twice daily for 1 day, followed by 1 tablet once daily for 1 day Prov:ONI YANG MD 01/11/25 Erythromycin (Erythromycin) 5 Mg/Gm Oin, 1 MG OP QID for 5 Days, #20 OIN Prov:KEVIN RUSS MD 11/24/24 Sucralfate (CARAFATE) 1 Gm Tab, 1 GM OR QID, #120 TAB 5 Refills Prov:FRANCIS MELGOZA MD 08/15/23 Pantoprazole Sodium Sesquihydr (Protonix) 40 Mg Tab, 40 MG PO DAILY, #30 TAB 5 Refills Prov:FRANCIS MELGOZA MD 08/15/23 Folic Acid-Vitamin B6-Vitamin (Folbee) Tab, 1 TAB PO DAILY for 30 Days, #30 TAB Prov:FRANCIS MELGOZA MD 08/15/23 Acetaminophen (Tylenol 8 Hour Arthritis) 650 Mg Tab, 650 MG PO TID, #30 TAB Prov:MISSY MARY 11/28/22 Aluminum Hydroxide-Mag Carb (Gaviscon Extra Strength) 1 Chw Chw, 1 CHW PO QID PRN for 10 Days, #40 TAB.CHEW Prov:ITALIA MEYER MD 10/31/22 Thiamine HCl (Thiamine Hydrochloride) 100 Mg Tab, 100 MG PO BID for 30 Days, #60 TAB Prov:ITALIA MEYER MD 10/31/22 Lorazepam (Ativan) 0.5 Mg Tab, 1 TAB PO TID for 10 Days, #30 TAB Prov:ITALIA MEYER MD 10/31/22 Information Source: Patient Mode of Arrival: Ambulatory Severity: Moderate Timing: Weeks Duration: Intermittent Prehospital treatment: None Past Medical History PAST MEDICAL HISTORY: Anxiety, Depression, Gout, HTN Surgical History: Denies all surgeries Family History Family History: Reviewed,noncontributory to illness Social History Smoker: Non-Smoker Alcohol: Heavy Drugs: Denies Drug Use Lives In: Home Constitutional: denies: chills, diaphoresis, fatigue, fever, malaise, sweats, weakness, others EENTM: reports: blurred vision; denies: double vision, ear bleeding, ear discharge, ear drainage, ear pain, ear ringing, eye pain, eye redness, hearing loss, mouth pain, mouth swelling, nasal discharge, nose bleeding, nose congestion, nose pain, photophobia, tearing, throat pain, throat swelling, voice changes, others Respiratory: denies: cough, hemoptysis, orthopnea, SOB at rest, shortness of breath, SOB with excertion, stridor, wheezing, others Cardiovascular: denies: chest pain, dizzy spells, diaphoresis, Dyspnea on exertion, edema, irregular heart beat, left arm pain, lightheadedness, palpitations, PND, syncope, others Gastrointestinal: denies: abdomen distended, abdominal pain, blood streaked bowels, constipated, diarrhea, dysphagia, difficulty swallowing, hematemesis, melena, nausea, poor appetite, poor fluid intake, rectal bleeding, rectal pain, vomiting, others Genitourinary: denies: burning, dysuria, flank pain, frequency, hematuria, incontinence, penile discharge, penile sore, pain, testicle pain, testicle swelling, urgency, others Neurological: reports: headache; denies: dizziness, fainting, left sided numbness, left sided weakness, numbness, paresthesia, pre-existing deficit, right sided numbness, right sided weakness, seizure, speech problems, tingling, tremors, weakness, others Musculoskeletal: denies: back pain, gout, joint pain, joint swelling, muscle pain, muscle stiffness, neck pain, others Integumetry: denies: bruises, change in color, change in hair/nails, dryness, laceration, lesions, lumps, rash, wounds, others Allergic/Immunocompromised: denies: Difficulty Healing, Frequent Infections, Hives, Itching, others Hematologic/Lymphatic: denies: anemia, blood clots, easy bleeding, easy bruising, swollen glands, others Endocrine: denies: excessive hunger, excessive sweating, excessive thirst, excessive urination, flushing, intolerance to cold, intolerance to heat, unexplained weight gain, unexplained weight loss, others Psychiatric: denies: anxiety, bipolar disorder, depression, hopeless, panic disorder, schizophrenia, sleepless, suicidal, others All Other Systems: Reviewed and Negative Physical Exam General Appearance: Moderate Distress, Normal HEENT: Head (Normocephalic atraumatic, ), Normal ENT Inspection, Pharynx Normal, Photophobia, TMs Normal Neck: Full Range of Motion, Non-Tender, Normal, Normal Inspection Respiratory: Chest Non-Tender, Lungs Clear, No Accessory Muscle Use, No Respiratory Distress, Normal Breath Sounds Cardiovascular: No Edema, No JVD, No Murmur, No Gallop, Normal Peripheral Pulses, Regular Rate/Rhythm Breast Exam: Deferred Gastrointestinal: Non Tender, No Pulsatile Mass, Normal Bowel Sounds, Soft Genitalia: Deferred Pelvic: Deferred Rectal: Deferred Extremities: No calf tenderness, Normal capillary refill, Normal inspection, Normal range of motion, Non-tender, No pedal edema Musculoskeletal : Apperance: Normal Neurologic: Alert, No Motor Deficits, Normal Affect, Normal Mood, No Sensory Deficits Cerebellar Function: Normal Reflexes: Normal Skin: Dry, Normal Color, Warm Lymphatic: No Adenopathy Was a procedure done? Was a procedure done?: No X-Ray, Labs, Meds, VS Vital Signs Date Time Temp Pulse Resp B/P (MAP) Pulse Ox O2 Delivery O2 Flow Rate FiO2 05/11/25 08:54 95 17 96 Room Air 05/11/25 08:54 97.7 95 16 135/80 (98) 96 97.7 05/11/25 08:08 94 16 96 Room Air* 0 21 05/11/25 08:08 97.6 94 16 133/80 (97) 96 97.6 05/11/25 08:08 97.6 94 16 133/80 (97) 96 97.6 Lab Test 05/11/25 08:32 05/11/25 08:21 Range/Units White Blood Count 4.9 4.4-10.8 10^3/uL Red Blood Count 5.00 4.5-5.90 10^6/uL Hemoglobin 16.8 13.5-17.5 g/dL Hematocrit 48.8 41.0-53.0 % Mean Corpuscular Volume 97.7 80.0-100.0 fL Mean Corpuscular Hemoglobin 33.7 H 28.0-32.0 pg Mean Corpuscular Hemoglobin Concent 34.4 32.0-36.0 g/dL Red Cell Distribution Width 15.4 H 11.8-14.3 % Platelet Count 212 140-450 10^3/uL Mean Platelet Volume 7.9 6.9-10.8 fL Neutrophils (%) (Auto) 46.9 37.0-80.0 % Lymphocytes (%) (Auto) 42.9 10.0-50.0 % Monocytes (%) (Auto) 5.8 0.0-12.0 % Eosinophils (%) (Auto) 2.1 0.0-7.0 % Basophils (%) (Auto) 2.3 H 0.0-2.0 % Neutrophils # (Auto) 2.3 1.6-8.6 10 ^3/uL Lymphocytes # (Auto) 2.1 0.4-5.4 10 ^3/uL Monocytes # (Auto) 0.3 0-1.3 10 ^3/uL Eosinophils # (Auto) 0.1 0-0.8 10 ^3/uL Basophils # (Auto) 0.1 0-0.2 10 ^3/uL Nucleated Red Blood Cells 0.1 % Sodium Level 144 136-145 mmol/L Potassium Level 4.4 3.5-5.1 mmol/L Chloride Level 105 98-107 mmol/L Carbon Dioxide Level 27 20-31 mmol/L Anion Gap 12 5-15 Blood Urea Nitrogen 8 L 9-23 mg/dL Creatinine 0.71 0.700-1.30 mg/dL Glomerular Filtration Rate Calc 123 >90 mL/min BUN/Creatinine Ratio 11.3 10.0-20.0 Serum Glucose 111 H 74-106 mg/dL Calcium Level 9.6 8.7-10.4 mg/dL Urine Color Light-yellow Yellow Urine Clarity Clear Clear Urine pH 5.0 5.0-9.0 Urine Specific Warner 1.011 1.001-1.035 Urine Protein Trace H Negative Urine Ketones Negative Negative Urine Blood 1+ H Negative /uL Urine Nitrite Negative Negative Urine Bilirubin Negative Negative Urine Urobilinogen Normal Negative mg/dL Urine Leukocyte Esterase Negative Negative /uL Urine RBC None seen 0 - 3 /hpf Urine Microscopic WBC < 1 0-3 /HPF Urine Squamous Epithelial Cells None seen <5 /hpf Urine Bacteria None seen None Seen /hpf Urine Glucose Normal Normal mg/dL X-Ray, Labs, Meds, VS Comment 34-year-old male with a history of gout, depression, anxiety, hernia, hy pertension, and alcohol use presents to the ED for the chief complaint of a 7/10 right-sided frontal/occipital headache, with a associated right eye blurriness and pressure, drooling, photophobia, and diarrhea. Patient arrives alert and oriented, ABC's intact, afebrile, vital signs stable, saturating well in room air CBC was ordered to exclude anemia, blood loss, or infection. BMP was ordered to exclude electrolyte abnormalities, renal failure, dehydration, hyperglycemia Urinalysis was ordered to rule out UTI or hematuria. Labs in the ED showed (pertinent+ and then pertinent-) Patient was given:_. Tolerated medications with no adverse reaction. On reevaluation, patient had symptomatic improvement. Patient is stable for discharge at this time. External notes reviewed. Test results and diagnostic imaging interpreted. All diagnostic findings, discharge care, education and instructions provided Follow-up with PCP in 2 to 3 days Patient verbalized understanding and agreed to treatment plan Vital signs stable, afebrile, no acute distress noted Patient ambulatory with strong steady gait Advised to return precautions for any new or worsening symptoms, return to ER immediately for re-evaluation Patient is aware that the purpose of this visit was for an acute medical emergency requiring emergent stabilization. Chronic conditions, including malignancies have not been ruled out. Patient is instructed to follow up with PCP as directed and discharge instructions for continued care and workup. If unable to arrange follow-up, patient is to return to the emergency department for reassessment. Patient (parent or legal guardian if applicable) was given verbal and written discharge instructions and acknowledges understanding. Additional MDM Review of External, Non-ED records: External records reviewed. Discussion with independent historian (EMS, family) history obtained from the patient/parents (if applicable) at bedside Chronic conditions affecting care: None Social determinants of health affecting care: None Time of 1ST Reevaluation: 08:49 Reevaluation 1ST: Unchanged Patient Education/Counseling: Diagnosis, Treatment, Need For Follow Up Family Education/Counseling: No Family Present SEPSIS Sepsis Screen Date sepsis recognized/suspect: May 11, 2025 Time Sepsis recognized/suspect: 0808 Recent Procedure: No On Antibiotic Therapy: No Respiratory Rate >20: No Heart Rate >90: Yes Temp<36 C (96.8 F) or >38.3 C: No SBP <90 or MAP <65 mmHG: No New Acute Mental Status Change: No Is the patient on CPAP, BIPAP,: No Vital Signs Date Time Temp Pulse Resp B/P (MAP) Pulse Ox O2 Delivery O2 Flow Rate FiO2 05/11/25 08:54 95 17 96 Room Air 05/11/25 08:54 97.7 95 16 135/80 (98) 96 97.7 05/11/25 08:08 94 16 96 Room Air* 0 21 05/11/25 08:08 97.6 94 16 133/80 (97) 96 97.6 05/11/25 08:08 97.6 94 16 133/80 (97) 96 97.6 Laboratory Tests Test 05/11/25 08:32 White Blood Count 4.9 10^3/uL (4.4-10.8) Departure 1 Departure Time of Disposition: 09:03 Impression: Primary Impression: Acute headache Qualified Codes: R51.9 - Headache, unspecified Disposition: HOME / SELF CARE / HOMELESS Condition: Stable e-Prescriptions Acetaminophen (Acetaminophen) 500 Mg Tab 500 MG PO Q6HP PRN for 10 Days, #40 TAB 0 Refills Prov: KRISTOPHER ORTIZ NP 05/11/25 Critical Care Note Critical Care Time?: No Stability Stability form required: No Heart Score Heart Score: Heart Score Response (Comments) Value History N/A 0 EKG N/A 0 Age N/A 0 Risk Factors N/A 0 Troponin N/A 0 Total 0 I personally scribed for KRISTOPHER ORTIZ AIR ANALYSIS TECHNICIAN ([email or web address]) on 05/11/25 at 08:26. Electronically submitted by Patrick Chung ([email or web address]). I personally scribed for KRISTOPHER ORTIZ NP ([email or web address]) on 05/11/25 at 08:27. Electronically submitted by Patrick Chung ([email or web address]). KRISTOPHER ORTIZ NP May 11, 2025 08:26
[2025-05-11 08:42] LABS: Hematocrit 48.8 % (41.0-53.0); Hemoglobin 16.8 g/dL (13.5-17.5); Mean Corpuscular Hemoglobin 33.7 pg (28.0-32.0); Mean Corpuscular Volume 97.7 fL (80.0-100.0); Nucleated Red Blood Cells % 0.1 %
[2025-05-11 08:51] LABS: Chloride 105 mmol/L (98-107); Potassium 4.4 mmol/L (3.5-5.1); Sodium 144 mmol/L (136-145)
[2025-05-11 08:52] LABS: Anion Gap 12 (5-15); Calcium 9.6 mg/dL (8.7-10.4); Carbon Dioxide 27 mmol/L (20-31)
[2025-05-11 08:54] VITALS: BP 135/80; PULSE 95; RESP 17; TEMP 97.7; O2SAT 96
[2025-05-11 08:57] LABS: BUN/Creatinine Ratio 11.3 (10.0-20.0)
[2025-05-11 08:59] LABS: Urine Protein, UAD TRACE (Negative)
[2025-05-11 09:01] LABS: Blood Urea Nitrogen 8 mg/dL (9-23); Glucose 111 mg/dL (74-106)
[2025-05-11] MEDS ORDERED: ACET500T58 PO (09:04)
== END 2025-05-11 09:21 | disposition home or self-care (01) ==
LOC: ER 07:58
DX: R51.9 Headache, unspecified (principal); I10 Essential (primary) hypertension; F41.9 Anxiety disorder, unspecified; F32.A Depression, unspecified; M10.9 Gout, unspecified; F10.10 Alcohol abuse, uncomplicated; Z79.899 Other long term (current) drug therapy; Y90.9 Presence of alcohol in blood, level not specified
CPT/HCPCS: 36415; 80048; 81001; 85025

== ENCOUNTER 2025-07-14 21:07 | Inpatient (IN) | payer MEDICAID ==
[~2025-07-14] VITALS: Ht 172.7 cm; Wt 72.3 kg
[~2025-07-14 21:07] MED LIST changes: +ACET500T58 PO
--- NOTE | 2025-07-14 21:34 | ED.PDOC ---
GI ASSESSMENT HPI Comments 35y M who presents to the ED via EMS for chief complaint of nausea and vomiting. EMS states pt has been having nausea and vomiting for the past 2x days. Pt states he has been blood in vomit with associated epigastric abdominal pain. EMS arrived on scene and notes pt had nausea and vomit but did not note blood in emesis bag. EMS gave pt zofran and pt was brought to the ED. Pt now in the ED, notes he is heavy drinker and states has not drank for the past 2x days but noted smell of ETOH. Pt otherwise rates his pain 8/10, diffuse abdominal pain, achy in nature, with no noted exacerbating or relieving factors. Pt otherwise denies any other symptoms at this time. Time Seen by MD: 21:29 Primary Care Provider: JUAN LUIS Reviewed Notes: Medications, Allergies Allergies: Coded Allergies: NO KNOWN ALLERGIES (Unverified , 05/24/15) Home Meds Active Scripts Acetaminophen (Acetaminophen) 500 Mg Tab, 500 MG PO Q6HP PRN for 10 Days, #40 TAB 0 Refills Prov:KRISTOPHER ORTIZ OIL HEATERMAN 05/11/25 Erythromycin (Erythromycin) 5 Mg/Gm Oin, 1 APPLIC OP TID for 10 Days, #3.5 GRAMS 0 Refills Prov:KRISTOPHER ORTIZ NP 03/29/25 Ketorolac Tromethamine (Ophth) (Ketorolac Tromethamine) 0.5 % Noreen, 1 DROP EACHEYE QID for 2 Days, #5 ML 0 Refills Prov:KRISTOPHER ORTIZ OIL HEATERMAN 03/29/25 Chlordiazepoxide Hcl (Librium) 25 Mg Cp, 25 MG PO UD for 3 Days, #7 CAP take 2 tablets twice daily for 1 day, followed by 1 tablet twice daily for 1 day, followed by 1 tablet once daily for 1 day Prov:ONI YANG MD 01/11/25 Erythromycin (Erythromycin) 5 Mg/Gm Oin, 1 MG OP QID for 5 Days, #20 OIN Prov:KEVIN RUSS MD 11/24/24 Sucralfate (CARAFATE) 1 Gm Tab, 1 GM OR QID, #120 TAB 5 Refills Prov:FRANCIS MELGOZA MD 08/15/23 Pantoprazole Sodium Sesquihydr (Protonix) 40 Mg Tab, 40 MG PO DAILY, #30 TAB 5 Refills Prov:FRANCIS MELGOZA MD 08/15/23 Folic Acid-Vitamin B6-Vitamin (Folbee) Tab, 1 TAB PO DAILY for 30 Days, #30 TAB Prov:FRANCIS MELGOZA MD 08/15/23 Acetaminophen (Tylenol 8 Hour Arthritis) 650 Mg Tab, 650 MG PO TID, #30 TAB Prov:MISSY MARY 11/28/22 Aluminum Hydroxide-Mag Carb (Gaviscon Extra Strength) 1 Chw Chw, 1 CHW PO QID PRN for 10 Days, #40 TAB.CHEW Prov:ITALIA MEYER MD 10/31/22 Thiamine HCl (Thiamine Hydrochloride) 100 Mg Tab, 100 MG PO BID for 30 Days, #60 TAB Prov:ITALIA MEYER MD 10/31/22 Lorazepam (Ativan) 0.5 Mg Tab, 1 TAB PO TID for 10 Days, #30 TAB Prov:ITALIA MEYER MD 10/31/22 Information Source: Patient, Emergency Med Personnel Mode of Arrival: EMS Brought in by: EMS Timing: Days Duration: Since onset Prehospital treatment: Treatment (zofran) Quality: Aching, Burning Vomitus: Food Particles, Bloody Stool: Normal Severity: Moderate Recent: Ingestion of ETOH Past Medical History PAST MEDICAL HISTORY: Anxiety, Depression, Gout, HTN Surgical History: Denies all surgeries Family History Family History: Reviewed,noncontributory to illness Social History Smoker: Non-Smoker Alcohol: Heavy Drugs: Denies Drug Use Lives In: Home Constitutional: denies: chills, diaphoresis, fatigue, fever, malaise, sweats, weakness, others EENTM: denies: blurred vision, double vision, ear bleeding, ear discharge, ear drainage, ear pain, ear ringing, eye pain, eye redness, hearing loss, mouth pain, mouth swelling, nasal discharge, nose bleeding, nose congestion, nose pain, photophobia, tearing, throat pain, throat swelling, voice changes, others Respiratory: denies: cough, hemoptysis, orthopnea, SOB at rest, shortness of breath, SOB with excertion, stridor, wheezing, others Cardiovascular: denies: chest pain, dizzy spells, diaphoresis, Dyspnea on e xertion, edema, irregular heart beat, left arm pain, lightheadedness, palpitations, PND, syncope, others Gastrointestinal: reports: abdominal pain, nausea, vomiting; denies: abdomen distended, blood streaked bowels, constipated, diarrhea, dysphagia, difficulty swallowing, hematemesis, melena, poor appetite, poor fluid intake, rectal bleeding, rectal pain, others Genitourinary: denies: burning, dysuria, flank pain, frequency, hematuria, incontinence, penile discharge, penile sore, pain, testicle pain, testicle swelling, urgency, others Neurological: denies: dizziness, fainting, headache, left sided numbness, left sided weakness, numbness, paresthesia, pre-existing deficit, right sided numbness, right sided weakness, seizure, speech problems, tingling, tremors, weakness, others Musculoskeletal: denies: back pain, gout, joint pain, joint swelling, muscle pain, muscle stiffness, neck pain, others Integumetry: denies: bruises, change in color, change in hair/nails, dryness, laceration, lesions, lumps, rash, wounds, others Allergic/Immunocompromised: denies: Difficulty Healing, Frequent Infections, Hives, Itching, others Hematologic/Lymphatic: denies: anemia, blood clots, easy bleeding, easy bruising, swollen glands, others Endocrine: denies: excessive hunger, excessive sweating, excessive thirst, excessive urination, flushing, intolerance to cold, intolerance to heat, unexplained weight gain, unexplained weight loss, others Psychiatric: denies: anxiety, bipolar disorder, depression, hopeless, panic disorder, schizophrenia, sleepless, suicidal, others All Other Systems: Reviewed and Negative Physical Exam General Appearance: Moderate Distress HEENT: Normal ENT Inspection, Pharynx Normal, TMs Normal Neck: Full Range of Motion, Non-Tender, Normal, Normal Inspection Respiratory: Chest Non-Tender, Lungs Clear, No Accessory Muscle Use, No Respiratory Distress, Normal Breath Sounds Cardiovascular: No Edema, No JVD, No Murmur, No Gallop, Normal Peripheral Pulses, Regular Rate/Rhythm Breast Exam: Deferred Gastrointestinal: Diffuse (abdominal tenderness) Genitalia: Deferred Pelvic: Deferred Rectal: Deferred Extremities: No calf tenderness, Normal capillary refill, Normal inspection, Normal range of motion, Non-tender, No pedal edema Musculoskeletal : Apperance: Normal Neurologic: Alert, bark grinder II-XII nml as Tested, No Motor Deficits, Normal Affect, Normal Mood, No Sensory Deficits Cerebellar Function: Normal Reflexes: Normal Skin: Dry, Normal Color, Warm Lymphatic: No Adenopathy Was a procedure done? Was a procedure done?: No GI differential Dx Differential Diagnosis: Gastritis/PUD, GI hemorrhage, Pancreatitis, Dehydration Other Differential Diagnosis ETOH use, ETOH intoxication, ETOH withdrawal, X-Ray, Labs, Meds, VS Vital Signs Date Time Temp Pulse Resp B/P (MAP) Pulse Ox O2 Delivery O2 Flow Rate FiO2 07/14/25 21:56 160 16 160/97 (118) 95 07/14/25 21:10 98.9 132 16 162/122 98 98.9 Lab Test 07/14/25 22:06 07/14/25 21:54 Range/Units White Blood Count 6.6 4.4-10.8 10^3/uL Red Blood Count 5.50 4.5-5.90 10^6/uL Hemoglobin 18.7 H 13.5-17.5 g/dL Hematocrit 52.3 41.0-53.0 % Mean Corpuscular Volume 95.2 80.0-100.0 fL Mean Corpuscular Hemoglobin 34.1 H 28.0-32.0 pg Mean Corpuscular Hemoglobin Concent 35.8 32.0-36.0 g/dL Red Cell Distribution Width 13.3 11.8-14.3 % Platelet Count 294 140-450 10^3/uL Mean Platelet Volume 7.6 6.9-10.8 fL Neutrophils (%) (Auto) 69.5 37.0-80.0 % Lymphocytes (%) (Auto) 24.0 10.0-50.0 % Monocytes (%) (Auto) 5.5 0.0-12.0 % Eosinophils (%) (Auto) 0.1 0.0-7.0 % Basophils (%) (Auto) 0.9 0.0-2.0 % Neutrophils # (Auto) 4.6 1.6-8.6 10 ^3/uL Lymphocytes # (Auto) 1.6 0.4-5.4 10 ^3/uL Monocytes # (Auto) 0.4 0-1.3 10 ^3/uL Eosinophils # (Auto) 0 0-0.8 10 ^3/uL Basophils # (Auto) 0.1 0-0.2 10 ^3/uL Nucleated Red Blood Cells 0.1 % Sodium Level 139 136-145 mmol/L Potassium Level 3.8 3.5-5.1 mmol/L Chloride Level 95 L 98-107 mmol/L Carbon Dioxide Level 21 20-31 mmol/L Anion Gap 23 H 5-15 Blood Urea Nitrogen 8 L 9-23 mg/dL Creatinine 0.91 0.700-1.30 mg/dL Glomerular Filtration Rate Calc 112 >90 mL/min BUN/Creatinine Ratio 8.8 L 10.0-20.0 Serum Glucose 124 H 74-106 mg/dL Calcium Level 9.5 8.7-10.4 mg/dL Total Bilirubin 0.8 0.2-1.0 mg/dL Aspartate Amino Transferase (AST) 130 H 13-40 U/L Alanine Aminotransferase (ALT) 91 H 7-40 U/L Alkaline Phosphatase 83 46-116 U/L Total Protein 9.1 H 5.7-8.2 g/dL Albumin 5.3 H 3.2-4.8 g/dL Lipase 64 H 12-53 U/L Plasma/Serum Blood Alcohol 299.8 H <10 mg/dL Current Medications Medications (Trade) Dose Ordered Sig/Nicole Route Start Time Stop Time Status Last Admin Sodium Chloride 1,000 ml @ 1,000 mls/hr Q1H ONCE IV 07/14/25 21:45 07/14/25 22:44 DC 07/14/25 23:41 Ondansetron HCl (Zofran) 4 mg ONCE ONCE IM 07/14/25 22:15 07/14/25 22:16 DC 07/14/25 23:59 Ceftriaxone Sodium 50 ml @ 100 mls/hr ONCE ONCE IV 07/14/25 23:30 07/14/25 23:59 DC 07/14/25 23:59 Famotidine 40 mg/ Sodium Chloride 104 ml @ 416 mls/hr ONCE ONCE IV 07/14/25 23:45 07/14/25 23:59 DC 07/14/25 23:45 X-Ray, Labs, Meds, VS Comment Imaging was reviewed by this provider, there is no obvious pathological or acute disease process. Pending radiology review Labs were reviewed by this provider, no abnormalities Vital signs reviewed by this provider, clinically stable Patient had two episodes of bloody emesis in lobby Concerns of possible ETOH withdrawal Patient given famotidine and Rocephin Recommend GI consult in the morning Time of 1ST Reevaluation: 22:00 Reevaluation 1ST: Unchanged Patient Education/Counseling: Diagnosis, Treatment Family Education/Counseling: No Family Present SEPSIS Sepsis Screen Physician Orders Urinalysis (07/14/25 21:33) Ct Ab Pel Wo Con-No Oral Or Iv (07/14/25 21:33) Vital Signs Date Time Temp Pulse Resp B/P (MAP) Pulse Ox O2 Delivery O2 Flow Rate FiO2 07/14/25 21:56 160 16 160/97 (118) 95 07/14/25 21:10 98.9 132 16 162/122 98 98.9 Laboratory Tests Test 07/14/25 22:06 White Blood Count 6.6 10^3/uL (4.4-10.8) Medications Medications Dose Ordered Sig/Nicole Route Start Time Stop Time Status Last Admin Dose Admin Ceftriaxone Sodium 50 ml @ 100 mls/hr ONCE ONCE IV 07/14/25 23:30 07/14/25 23:59 DC 07/14/25 23:59 Famotidine 40 mg/ Sodium Chloride 104 ml @ 416 mls/hr ONCE ONCE IV 07/14/25 23:45 07/14/25 23:59 DC 07/14/25 23:45 Ondansetron HCl 4 mg ONCE ONCE IM 07/14/25 22:15 07/14/25 22:16 DC 07/14/25 23:59 Sodium Chloride 1,000 ml @ 1,000 mls/hr Q1H ONCE IV 07/14/25 21:45 07/14/25 22:44 DC 07/14/25 23:41 Departure 1 Departure Time of Disposition: 01:33 Impression: Primary Impression: GI bleed Qualified Codes: K29.21 - Alcoholic gastritis with bleeding Additional Impressions: ETOH abuse Dehydration Esophagitis determined by endoscopy Disposition: ADMITTED INPATIENT Condition: Stable Discharged With: Self Critical Care Note Critical Care Time?: No Stability Stability form required: No Heart Score Heart Score: Heart Score Response (Comments) Value History N/A 0 EKG N/A 0 Age N/A 0 Risk Factors N/A 0 Troponin N/A 0 Total 0 I personally scribed for GERALD NO ([email or web address]) on 10/1/25 at 21:34. Electronically submitted by Molly Fay ([email or web address]). GERALD NO Jul 14, 2025 21:34
--- NOTE | 2025-07-14 22:15 | DVH ---
CLINICAL HISTORY: abd pain TECHNIQUE: CT of the abdomen and pelvis was performed without IV contrast. This exam was performed ac cording to our departmental dose optimization program. Up-to-date CT equipment and radiation dose red uction techniques are utilized as appropriate. CTDI 5.3 DLP 297 COMPARISON: CT CHST AB PEL WO CON-NO IV/ORAL on DOS: 01/07/25, CT CT AB PEL WO CON-NO ORAL OR IV on DO S: 08/12/23 FINDINGS: Abdomen/Pelvis: The spleen, pancreas, adrenal glands, kidneys, gallbladder, bladder, and prostate gland are grossly u nremarkable. There is diffuse hepatic steatosis. The abdominal aorta is normal in course and caliber. There are no significant atherosclerotic calcifi cations. There is no free intraperitoneal air or fluid. There is no enlarged abdominal pelvic lymph node. There is no bowel wall thickening or dilatation. The appendix is normal. There is minimal ascending c olon diverticulosis. Other: The imaged lower thorax demonstrates moderate distal esophageal wall thickening. No acute osseous abnormality is evident. Impression: Moderate distal esophageal wall thickening, favor esophagitis. Please correlate with clinical exam pr oceed further workup if warranted. Diffuse hepatic steatosis. Minimal ascending colon diverticulosis.
[2025-07-14 22:32] LABS: Alkaline Phosphatase 83 U/L (46-116); Anion Gap 23 (5-15); BUN/Creatinine Ratio 8.8 (10.0-20.0); Calcium 9.5 mg/dL (8.7-10.4); Carbon Dioxide 21 mmol/L (20-31); Potassium 3.8 mmol/L (3.5-5.1); Sodium 139 mmol/L (136-145)
[2025-07-14 22:33] LABS: Bilirubin, Total 0.8 mg/dL (0.2-1.0)
[2025-07-14 22:33] LABS: Nucleated Red Blood Cells % 0.1 %
[2025-07-14 22:35] LABS: Hematocrit 52.3 % (41.0-53.0); Hemoglobin 18.7 g/dL (13.5-17.5); Mean Corpuscular Hemoglobin 34.1 pg (28.0-32.0); Mean Corpuscular Volume 95.2 fL (80.0-100.0)
[2025-07-14 22:38] LABS: Alanine Aminotransferase 91 U/L (7-40); Albumin 5.3 g/dL (3.2-4.8); Blood Urea Nitrogen 8 mg/dL (9-23); Chloride 95 mmol/L (98-107); Glucose 124 mg/dL (74-106); Lipase 64 U/L (12-53); Total Protein 9.1 g/dL (5.7-8.2)
[2025-07-14] MEDS: SODIUM CHLORIDE 0.9% 1,000 ML IV ONE (23:41)
[2025-07-14] MEDS: FAMOTIDINE INJECTION 40 MG in SODIUM CHL 0.9% 100 ML IV ONE ×2 (23:45→23:58)
[2025-07-14] MEDS: ONDANSETRON HCL 4 MG/2 ML VIAL IM ONE (23:59)
[2025-07-15] VITALS (17 sets, daily range): BP systolic 109–147; BP diastolic 78–100; PULSE 59–113; RESP 9–20; TEMP 97.9–99.5; O2SAT 92–100
[2025-07-15] MEDS: FAMOTIDINE (10MG/ML) 2ML VL IV ONE (01:32)
[2025-07-15] MEDS: ONDANSETRON HCL 4 MG/2 ML VIAL IV ONE (03:24)
[2025-07-15] MEDS: HYDROmorphone HCL 2 MG/ML VL/or syr IV ONE (03:25)
[2025-07-15 03:55] LABS: Magnesium 1.9 mg/dL (1.6-2.6)
[2025-07-15 03:59] LABS: Lactic Acid w/Reflex 5.6 mmol/L (0.4-2.0)
[2025-07-15] MEDS: LORazepam 2MG/ML-1ML VIAL IV SCH ×2 (04:15)
[2025-07-15] MEDS: FOLIC ACID 1 MG in D5W 5% 50 ML INJ ONE (04:15)
--- NOTE | 2025-07-15 04:32 | DVHHPRES ---
History of Present Illness Resident Creating Document: DAYNA CARDONA History of Present Illness Mr. Hobbs A 35-year-old male with prior medical history of anxiety, sleep disorders, and alcoholism, who presents today with chief complaint of nausea and vomiting. The patient states he had his last drink 2 days ago and since then has had constant nausea and vomiting. He states he has been unable to keep any food or water down during this time. this has been associated with epigastric pain described as sharp, nonradiating, 10/10, which worsens with retching. The patient states that before coming to the ED he was having multiple emetic episodes last of which were bloody. Upon seeing blood in his vomitus the patient decided to seek out medical care at the emergency department. Patient reports previous history of EGD which showed esophagitis. On evaluation in the ED, patient was hypertensive and tachycardic. Initial labs show CBC within normal range, elevated LFTs, paste 64, lactic acid 5.6. UDS is positive for cannabis. Plasma serum alcohol level is 299.8. UA is unremarkable. Abdominal CT shows moderate distal esophageal wall thickening, favor esophagitis, diffuse hepatic steatosis, minimal ascending colon diverticulosis. Chest x-ray no acute cardiopulmonary disease. CIWA score was 27. The patient was placed on NPO, started on IV fluids, and on Ativan protocol for withdrawal. The patient was admitted for further monitoring and workup. Psych: Anxiety, Addictions (Alcoholism) Past Surgical History: None Family History: None Smoke: Quit (Smoked 1 pack a day for 3 months quit 3 years ago) ALCOHOL: heavy (Drinks 8-9 beers a day and has done so for the last 16 years) Drugs: Other (Refers previous use of methamphetamines, cocaine, and ecstasy, states he quit 10 years ago) Lives: Roommate Domestic Violence: Neg Review of Systems Review of Systems Constitutional: Refers anxiety and nausea Denies weight loss, fever and chills. HEENT: Denies changes in vision and hearing. Respiratory: Denies shortness of breath and cough Cardiovascular: Denies chest discomfort or palpitations GI: Refers epigastric abdominal pain, Denies abdominal distention, diarrhea : Denies dysuria and urinary frequency. Musculoskeletal: Denies symptoms Skin: Denies rash and pruritus. Neurological: denies dizziness headache vision or hearing problems Allergies: Coded Allergies: NO KNOWN ALLERGIES (Unverified , 05/24/15) Medications Current Medications Medications Dose Ordered Sig/Nicole Route Start Time Stop Time Status Last Admin Dose Admin Sodium Chloride 1,000 ml @ 75 mls/hr [id number] IV 07/15/25 04:00 Pantoprazole Sodium 40 mg DAILY IV 07/15/25 04:00 Ondansetron HCl 4 mg Q4HPRN PRN IV 07/15/25 04:00 Lorazepam 2 mg Q15M IV 07/15/25 04:15 Lorazepam 2 mg Q2H IV 07/15/25 04:15 Exam Vital Signs Vital Signs Date Time Temp Pulse Resp B/P (MAP) Pulse Ox O2 Delivery O2 Flow Rate FiO2 07/15/25 04:03 98.2 125 20 157/64 (95) 96 98.2 Exam General: The patient alert and oriented in person place and time. Patient following commands HEENT: Normocephalic, atraumatic, normal reactive pupils, EOM intact, pink conjunctiva, red sclera, pink dry mucous membrane Respiratory/pulmonary: Bilateral chest expansion, no pain on palpation of chest wall, clear lungs bilaterally, vesicular murmurs present in almost all lung mireles, no associated crackles or wheezes. Cardiovascular: Tachycardic, normal S1 and S2, no murmurs Abdomen: Abdomen nondistended, normal bowel sounds, soft, pain to palpation in epigastrium, no palpable masses. Extremities: No deformities, there is no peripheral edema present at the lower extremities, normal pulses Skin: No rashes or pruritus, there is no sacral edema present at this time. Neurological: Intact cranial nerves with no focal neurologic deficits Labs/Xrays Labs Test 07/15/25 03:05 07/14/25 22:06 07/14/25 21:54 Range/Units Hemoglobin A1c 5.1 <5.7 % A1C Lactic Acid Level 5.6 *H 0.4-2.0 mmol/L Phosphorus Level 3.9 2.4-5.1 mg/dL Magnesium Level 1.9 1.6-2.6 mg/dL Vitamin B12 Level 672 211-911 pg/mL Vitamin D 25-Hydroxy 24.1 L 30.0-100 ng/mL Thyroid Stimulating Hormone (TSH) 0.71 0.55-4.78 uIU/mL Eosinophils (%) (Auto) 0.1 0.0-7.0 % Eosinophils # (Auto) 0 0-0.8 10 ^3/uL Basophils # (Auto) 0.1 0-0.2 10 ^3/uL Nucleated Red Blood Cells 0.1 % Lipase 64 H 12-53 U/L Plasma/Serum Blood Alcohol 299.8 H <10 mg/dL SEPSIS Sepsis Screen Date sepsis recognized/suspect: Jul 14, 2025 Time Sepsis recognized/suspect: 2109 Recent Procedure: No On Antibiotic Therapy: No Respiratory Rate >20: No Heart Rate >90: Yes Temp<36 C (96.8 F) or >38.3 C: No SBP <90 or MAP <65 mmHG: No New Acute Mental Status Change: No Is the patient on CPAP, BIPAP,: No Physician Orders Urinalysis (07/14/25 21:33) Ct Ab Pel Wo Con-No Oral Or Iv (07/14/25 21:33) Vitamin B1 (Thiamine) (07/15/25 02:50) Drug Screen (07/15/25 02:50) Chest Xray 1 View (07/15/25 02:50) Blood Culture (07/15/25 02:50) Admit (07/15/25 03:53) Allergies (07/15/25 03:53) Code Status (07/15/25 03:53) Npo (Nothing By Mouth) Diet (07/15/25 Breakfast) Condition: Stable (07/15/25 03:53) Stat Ekg For Chest Pain (07/15/25 03:53) Notify Md Of Changes From Base (07/15/25 03:53) Title Insurance Sales Representative For 24 Hours (07/15/25 03:53) Emergency Dysrhythmia Protocol (07/15/25 03:53) Rhythm Strips Once Every Shift (07/15/25 03:53) Sodium Chloride 0.9% (07/15/25 04:00) Pantoprazole (Protonix) (07/15/25 04:00) Electrocardigram (07/15/25 03:53) Ondansetron Hcl (Zofran) (07/15/25 04:00) Sodium Chloride 0.9% (07/15/25 04:15) Lorazepam 2mg/Ml Inj (Ativan Inj) (07/15/25 04:15) Lorazepam 2mg/Ml Inj (Ativan Inj) (07/15/25 04:15) Etoh Withdrawal Assessment (07/15/25 04:03) Etoh Withdrawal Assessment NOW (07/15/25 04:03) Complete Blood Count (07/15/25 04:26) Comprehensive Metabolic Panel (07/15/25 04:26) Vital Signs Date Time Temp Pulse Resp B/P (MAP) Pulse Ox O2 Delivery O2 Flow Rate FiO2 07/15/25 04:03 98.2 125 20 157/64 (95) 96 98.2 07/15/25 04:01 124 20 157/64 07/15/25 03:25 116 20 136/104 07/15/25 01:56 98.8 117 20 150/107 (121) 96 98.8 07/14/25 21:56 160 16 160/97 (118) 95 07/14/25 21:10 98.9 132 16 162/122 98 98.9 Laboratory Tests Test 07/14/25 22:06 07/15/25 03:05 White Blood Count 6.6 10^3/uL (4.4-10.8) Pending Lactic Acid Level 5.6 mmol/L (0.4-2.0) *H Medications Medications Dose Ordered Sig/Nicole Route Start Time Stop Time Status Last Admin Dose Admin Ceftriaxone Sodium 50 ml @ 100 mls/hr ONCE ONCE IV 07/14/25 23:30 07/14/25 23:59 DC 07/14/25 23:59 100 MLS/HR Famotidine 40 mg/ Sodium Chloride 104 ml @ 416 mls/hr ONCE ONCE IV 07/14/25 23:45 07/14/25 23:59 DC 07/14/25 23:45 416 MLS/HR Hydromorphone HCl 1 mg ONCE ONCE IV 07/15/25 03:15 07/15/25 03:16 DC 07/15/25 03:25 1 MG Ondansetron HCl 4 mg ONCE ONCE IM 07/14/25 22:15 07/14/25 22:16 DC 07/14/25 23:59 4 MG Ondansetron HCl 4 mg ONCE ONCE IV 07/15/25 03:15 07/15/25 03:16 DC 07/15/25 03:24 4 MG Sodium Chloride 1,000 ml @ 1,000 mls/hr Q1H ONCE IV 07/14/25 21:45 07/14/25 22:44 DC 07/14/25 23:41 1,000 MLS/HR Assessment/Plan Assessment/Plan Assessment and Plan: Alcohol Withdrawal Dehydration likely due to above Lactic acidosis likely due to above - CIWA 27 - Serial CIWA assessments - Ativan 2 mg IV q15 min IV - Ativan 2 mg IV q 2 hours - Thiamin 100 mg IV once - Folic acid 1 mg injection once, then maintenance. Also indicated multivitamins - NPO - NS 1000 cc bolus x 2 - NS maintenance 75 cc/hrs - Zofran 4 mg IV q4 hours PRN Alcoholism Possible Upper GI bleed - NPO - Protonix 40 mg IV BID - GI consult has been ordered - No enoxaparin indicated, on SCDs Intractable abdominal likely due to above - Dilaudid once Hepatic steatosis Transaminitis likely due to above - Abdominal CT: Diffuse hepatic steatosis Diverticulosis - Abdominal CT: Minimal ascending diverticulosis History of tobacco use History of polysubstance use Diet: NPO DVT prophylaxis: Not indicated GI prophylaxis: Protonix 40 mg IV daily Case discussed with Dr. Garcia Goals of care discussed with the patient for over 25 minutes. FULL CODE. Plan discussed with: Patient, Other (Nurses) My Orders Orders - DAYNA CARDONA RESIDENT Procedure Category Date Status Time Vitamin B1 (Thiamine) LAB 07/15/25 In Process 02:50 Drug Screen LAB 07/15/25 Logged 02:50 Chest Xray 1 View XY 07/15/25 Logged 02:50 Blood Culture OSCAR 07/15/25 In Process 02:50 Admit ADMIT 07/15/25 Transmitted 03:53 Allergies SHAKIR 07/15/25 In Process 03:53 Code Status CODE 07/15/25 Transmitted 03:53 Npo (Nothing By DIET 07/15/25 Transmitted Mouth) Diet Breakfast Condition: Stable SHAKIR 07/15/25 In Process 03:53 Stat Ekg For Chest SHAKIR 07/15/25 In Process Pain 03:53 Notify Of Changes SHAKIR 07/15/25 In Process From Base 03:53 Title Insurance Sales Representative For SHAKIR 07/15/25 In Process 24 Hours 03:53 Emergency Dysrhythmia SHAKIR 07/15/25 In Process Protocol 03:53 Rhythm Strips Once SHAKIR 07/15/25 In Process Every Shift 03:53 Sodium Chloride 0.9% PHA 07/15/25 In Process 04:00 Pantoprazole PHA 07/15/25 In Process (Protonix) 04:00 Electrocardigram EKG 07/15/25 Logged 03:53 Ondansetron Hcl PHA 07/15/25 In Process (Zofran) 04:00 Sodium Chloride 0.9% PHA 07/15/25 In Process 04:15 Lorazepam 2mg/Ml Inj PHA 07/15/25 In Process (Ativan Inj) 04:15 Lorazepam 2mg/Ml Inj PHA 07/15/25 In Process (Ativan Inj) 04:15 Etoh Withdrawal SHAKIR 07/15/25 In Process Assessment 04:03 Etoh Withdrawal SHAKIR 07/15/25 In Process Assessment 04:03 Complete Blood Count LAB 07/15/25 In Process 04:26 Comprehensive LAB 07/15/25 In Process Metabolic Panel 04:26 Date of Service: Jul 15, 2025 Billing Provider: KAREN MENDOZA MD Common Visit Codes: [id number] INP/OBS CARE (HIGH) Secondary Visit Codes: [id number] CARE PLAN 30 MINUTES DAYNA CARDONA RESIDENT Jul 15, 2025 04:32 ROXI JUAN RESIDENT Jul 15, 2025 08:58
[2025-07-15] MEDS: PANTOPRAZOLE 40 MG/10 ML VIAL INJ IV SCH ×2 (04:39→09:12)
[2025-07-15] MEDS: THIAMINE 100mg/ml INJ (200mg/2ml VIAL) IV ONE (04:48)
[2025-07-15 05:02] LABS: Alkaline Phosphatase 75 U/L (46-116); Anion Gap 24 (5-15); BUN/Creatinine Ratio 5.8 (10.0-20.0); Calcium 9.3 mg/dL (8.7-10.4); Carbon Dioxide 22 mmol/L (20-31); Potassium 4.4 mmol/L (3.5-5.1); Sodium 139 mmol/L (136-145)
[2025-07-15 05:03] LABS: Bilirubin, Total 0.7 mg/dL (0.2-1.0)
[2025-07-15 05:04] LABS: Hematocrit 51.2 % (41.0-53.0); Hemoglobin 17.6 g/dL (13.5-17.5); Mean Corpuscular Hemoglobin 33.1 pg (28.0-32.0); Mean Corpuscular Volume 96.4 fL (80.0-100.0); Nucleated Red Blood Cells % 0.1 %
[2025-07-15 05:10] LABS: Alanine Aminotransferase 84 U/L (7-40); Albumin 5.2 g/dL (3.2-4.8); Blood Urea Nitrogen 5 mg/dL (9-23); Chloride 93 mmol/L (98-107); Glucose 111 mg/dL (74-106); Total Protein 9.1 g/dL (5.7-8.2)
[2025-07-15] MEDS: SODIUM CHLORIDE 0.9% 1,000 ML IVB ONE (05:11)
--- NOTE | 2025-07-15 05:26 | DVH ---
CHEST RADIOGRAPH Indication: Possible aspiration. Technique: Single frontal view of the chest was obtained Comparison: CHEST TWO VIEWS ROUTINE on DOS: 01/01/22 FINDINGS: Lines and Tubes: None Lungs: No focal consolidation. Pleura: No effusion. No pneumothorax. Cardiomediastinal contours: Unremarkable Bones: No acute osseous abnormality. IMPRESSION: 1. No acute cardiopulmonary disease.
[2025-07-15 05:59] LABS: Cannabinoid Screen, Urine Pos (NEGATIVE); Opiate Scree,Urine Neg (NEGATIVE)
[2025-07-15 06:06] LABS: Amphetamine Screen, Urine Neg (NEGATIVE); Barbiturate Scree,Urine Neg (NEGATIVE); Benzodiazephine Screen, Urine Neg (NEGATIVE); Cocaine Screen, Urine Neg (NEGATIVE); Phencyclidine Screen, Urine Neg (NEGATIVE)
[2025-07-15 06:11] LABS: Urine Protein, UAD 3+ (Negative)
[2025-07-15] MEDS: SODIUM CHLORIDE 0.9% 1,000 ML IV SCH (06:43)
[2025-07-15 09:45] LABS: Hematocrit 44.5 % (41.0-53.0); Hemoglobin 15.5 g/dL (13.5-17.5); Mean Corpuscular Hemoglobin 33.3 pg (28.0-32.0); Mean Corpuscular Volume 95.8 fL (80.0-100.0); Nucleated Red Blood Cells % 0.0 %
[2025-07-15] MEDS: B-COMPLEX W/ C & FOLIC ACID(NEPHROVITE TAB) PO SCH (10:16)
[2025-07-15] MEDS: AZITHROMYCIN 500MG/ 250ML 250 ML IV ONE (10:16)
[2025-07-15] MEDS: THIAMINE 100mg/ml INJ (200mg/2ml VIAL) IV SCH (10:16)
[2025-07-15] MEDS: MULTIPLE VITAMIN TAB PO SCH (10:16)
--- NOTE | 2025-07-15 12:44 | DVHPNRES ---
Progress Note Date Seen: Jul 15, 2025 Resident Creating Document: PHOEBE KRISHNA RESIDENT Has the PT tested + for MRSA If YES, has PT been informed?: No Medical Necessity Reason Pt with a Central, PICC or Fol: No Subjective Review of Systems Mr. Hobbs A 35-year-old male with prior medical history of anxiety, sleep disorders, and alcoholism, who presents today with chief complaint of nausea and vomiting. The patient states he had his last drink 2 days ago and since then has had constant nausea and vomiting. He states he has been unable to keep any food or water down during this time. this has been associated with epigastric pain described as sharp, nonradiating, 10/10, which worsens with retching. The patient states that before coming to the ED he was having multiple emetic episodes last of which were bloody. Upon seeing blood in his vomitus the patient decided to seek out medical care at the emergency department. On evaluation in the ED, patient was hypertensive and tachycardic. Initial labs show CBC within normal range, elevated LFTs, paste 64, lactic acid 5.6. UDS is positive for cannabis. Plasma serum alcohol level is 299.8. UA is unremarkable. Abdominal CT shows moderate distal esophageal wall thickening, favor esophagitis, diffuse hepatic steatosis, minimal ascending colon diverticulosis. Chest x-ray no acute cardiopulmonary disease. CIWA score was 27. The patient was placed on NPO, started on IV fluids, and on Ativan protocol for withdrawal. The patient was admitted for further monitoring and workup. Psych: Anxiety, Addictions (Alcoholism) Past Surgical History: None Family History: None Smoke: Quit (Smoked 1 pack a day for 3 months quit 3 years ago) ALCOHOL: heavy (Drinks 8-9 beers a day and has done so for the last 16 years) Drugs: Other (Refers previous use of methamphetamines, cocaine, and ecstasy, states he quit 10 years ago) Lives: Roommate Domestic Violence: Neg code status: FULL CODE. ROS: 07/15/25- patient seen and examined by me today. Patient's CIWA score is 32. Patient was transferred to the [facility]. Ativan 2 g Q 2 scheduled has been ordered. We will continue to monitor the patient. Objective vital signs Vital Sign Date Time Temp Pulse Resp B/P (MAP) Pulse Ox O2 Delivery O2 Flow Rate FiO2 07/15/25 12:19 98.7 103 15 127/87 (100) 97 98.7 07/15/25 08:14 Room Air* 0 21 medications Current Medications Medications Dose Ordered Sig/Nicole Route Start Time Stop Time Status Last Admin Dose Admin Sodium Chloride 1,000 ml @ 75 mls/hr [id number] IV 07/15/25 04:00 07/15/25 06:43 75 MLS/HR Ondansetron HCl 4 mg Q4HPRN PRN IV 07/15/25 04:00 Lorazepam 2 mg Q15M IV 07/15/25 04:15 Hold Lorazepam 2 mg Q2H IV 07/15/25 04:15 07/15/25 12:29 2 MG Pantoprazole Sodium 40 mg BID IV 07/15/25 10:00 07/15/25 09:12 40 MG Thiamine HCl 100 mg DAILY IV 07/15/25 10:00 07/15/25 10:16 100 MG Multivitamins 1 tab DAILY PO 07/15/25 10:00 07/15/25 10:16 1 TAB Multivit/Ca Carb/ B Cmplx/FA/Prenat 1 tab DAILY PO 07/15/25 10:00 07/15/25 10:16 1 TAB Examination General: The patient alert and oriented in person place and time. Patient following commands, is very agitated HEENT: Normocephalic, atraumatic, normal reactive pupils, EOM intact, pink conjunctiva, red sclera, pink dry mucous membrane Respiratory/pulmonary: Bilateral chest expansion, no pain on palpation of chest wall, clear lungs bilaterally, vesicular murmurs present in almost all lung mireles, no associated crackles or wheezes. Cardiovascular: Tachycardic, normal S1 and S2, no murmurs Abdomen: Abdomen nondistended, normal bowel sounds, soft, pain to palpation in epigastrium, no palpable masses. Extremities: No deformities, there is no peripheral edema present at the lower extremities, normal pulses Skin: No rashes or pruritus, there is no sacral edema present at this time. Neurological: Intact cranial nerves with no focal neurologic deficits laboratory and microbiology Laboratory Tests 07/15/25 09:34 07/15/25 03:05 Test 07/15/25 03:05 Range/Units Serum Glucose 111 H 74-106 mg/dL Labs and/or images reviewed: Labs reviewed by me, Image(s) reviewed by me Problem List/Assessment/Plan Problem List/Assessment/Plan #Alcohol Withdrawal #Dehydration likely due to above #Lactic acidosis likely due to above - CIWA 27 - Serial CIWA assessments - Ativan 2 mg IV q15 min IV - Ativan 2 mg IV q 2 hours - Thiamin 100 mg IV once - Folic acid 1 mg injection once - NPO - NS 1000 cc bolus x 2 - NS maintenance 75 cc/hrs - Zofran 4 mg IV q4 hours PRN #Alcoholism #Possible Upper GI bleed - NPO - Protonix 40 mg IV BID - GI consult has been ordered #Intractable abdominal likely due to above - Dilaudid once #Hepatic steatosis #Transaminitis likely due to above - Abdominal CT: Diffuse hepatic steatosis #Diverticulosis - Abdominal CT: Minimal ascending diverticulosis #History of tobacco use #History of polysubstance use Patient was counseled regarding cessation over 12 minutes Diet: NPO DVT prophylaxis: Not indicated GI prophylaxis: Protonix 40 mg IV daily Case discussed with Dr. Collier Goals of care discussed with the patient for over 25 minutes. FULL CODE. Plan discussed with: Patient, Other (rn) Date of Service: Jul 15, 2025 Billing Provider: ONI COLLIER MD Common Visit Codes: [id number] INP/OBS CARE(HIGH) PHOEBE KRISHNA RESIDENT Jul 15, 2025 12:44 ONI COLLIER MD Jul 16, 2025 19:45
[2025-07-15] MEDS ORDERED: FOLIC ACID 1 MG in D5W 5% 50 ML INJ ONE (17:15)
[2025-07-15 19:28] LABS: Alanine Aminotransferase 64 U/L (7-40); Albumin 4.3 g/dL (3.2-4.8); Alkaline Phosphatase 63 U/L (46-116); Anion Gap 13 (5-15); BUN/Creatinine Ratio 10.3 (10.0-20.0); Bilirubin, Total 1.6 mg/dL (0.2-1.0); Blood Urea Nitrogen 7 mg/dL (9-23); Calcium 8.7 mg/dL (8.7-10.4); Carbon Dioxide 29 mmol/L (20-31); Chloride 96 mmol/L (98-107); Glucose 80 mg/dL (74-106); Potassium 3.6 mmol/L (3.5-5.1); Sodium 138 mmol/L (136-145); Total Protein 7.3 g/dL (5.7-8.2)
[2025-07-15] MEDS: FOLIC ACID 1 MG, MULTIPLE VITAMIN 10 ML, MAGNESIUM SULF SDV 50% 8 MEQ, THIAMINE INJ 100... INJ SCH (20:01)
[2025-07-16] VITALS (31 sets, daily range): BP systolic 110–157; BP diastolic 65–103; PULSE 67–107; RESP 9–23; TEMP 97.9–98.3; O2SAT 92–98
[2025-07-16 07:59] LABS: Calcium 9.3 mg/dL (8.7-10.4); Chloride 98 mmol/L (98-107); Potassium 4.0 mmol/L (3.5-5.1); Sodium 139 mmol/L (136-145)
[2025-07-16 08:00] LABS: Anion Gap 11 (5-15); Carbon Dioxide 30 mmol/L (20-31)
[2025-07-16 08:08] LABS: BUN/Creatinine Ratio 7.7 (10.0-20.0); Blood Urea Nitrogen < 5 mg/dL (9-23); Glucose 67 mg/dL (74-106)
--- NOTE | 2025-07-16 13:28 | DVHPNRES ---
Progress Note Date Seen: Jul 16, 2025 Resident Creating Document: PHOEBE KRISHNA RESIDENT Has the PT tested + for MRSA If YES, has PT been informed?: No Medical Necessity Reason Pt with a Central, PICC or Fol: No Subjective Review of Systems Mr. Hobbs A 35-year-old male with prior medical history of anxiety, sleep disorders, and alcoholism, who presents today with chief complaint of nausea and vomiting. The patient states he had his last drink 2 days ago and since then has had constant nausea and vomiting. He states he has been unable to keep any food or water down during this time. this has been associated with epigastric pain described as sharp, nonradiating, 07/23, which worsens with retching. The patient states that before coming to the ED he was having multiple emetic episodes last of which were bloody. Upon seeing blood in his vomitus the patient decided to seek out medical care at the emergency department. On evaluation in the ED, patient was hypertensive and tachycardic. Initial labs show CBC within normal range, elevated LFTs, paste 64, lactic acid 5.6. UDS is positive for cannabis. Plasma serum alcohol level is 299.8. UA is unremarkable. Abdominal CT shows moderate distal esophageal wall thickening, favor esophagitis, diffuse hepatic steatosis, minimal ascending colon diverticulosis. Chest x-ray no acute cardiopulmonary disease. CIWA score was 27. The patient was placed on NPO, started on IV fluids, and on Ativan protocol for withdrawal. The patient was admitted for further monitoring and workup. Psych: Anxiety, Addictions (Alcoholism) Past Surgical History: None Family History: None Smoke: Quit (Smoked 1 pack a day for 3 months quit 3 years ago) ALCOHOL: heavy (Drinks 8-9 beers a day and has done so for the last 16 years) Drugs: Other (Refers previous use of methamphetamines, cocaine, and ecstasy, states he quit 10 years ago) Lives: Roommate Domestic Violence: Neg ROS: 07/15/25- patient seen and examined by me today. Patient's CIWA score is 32. Patient was transferred to the [facility]. Ativan 2 g Q 2 scheduled has been ordered. We will continue to monitor the patient. 07/16/2025: Patient is doing better today. CIWA score was 21 today. Continuing Ativan 2 q2. We are also giving the patient clear liquid diet. We will continue to monitor the patient. Awaiting GI consult Objective vital signs Vital Sign Date Time Temp Pulse Resp B/P (MAP) Pulse Ox O2 Delivery O2 Flow Rate FiO2 07/16/25 11:00 67 18 139/95 (110) 95 07/16/25 08:00 97.9 97.9 07/16/25 08:00 Room Air* 0 21 Total Intake and Output 07/15/25 07/15/25 07/16/25 15:00 23:00 07:00 Intake Total 375 ml 625 ml Balance 375 ml 625 ml medications Current Medications Medications Dose Ordered Sig/Nicole Route Start Time Stop Time Status Last Admin Dose Admin Ondansetron HCl 4 mg Q4HPRN PRN IV 07/15/25 04:00 Lorazepam 2 mg Q2H IV 07/15/25 04:15 07/16/25 10:26 2 MG Pantoprazole Sodium 40 mg BID IV 07/15/25 10:00 07/16/25 10:26 40 MG Thiamine HCl 100 mg DAILY IV 07/15/25 10:00 07/16/25 10:26 100 MG Multivitamins 1 tab DAILY PO 07/15/25 10:00 07/16/25 10:25 1 TAB Multivit/Ca Carb/ B Cmplx/FA/Prenat 1 tab DAILY PO 07/15/25 10:00 07/16/25 10:25 1 TAB Folic Acid 1 mg/ Multivitamins 10 ml/Magnesium Sulfate 8 meq/ Thiamine HCl 100 mg/Dextrose 1,013.2 ml @ 125.001 mls/hr DAILY@1800 INJ 07/15/25 18:00 07/15/25 20:01 125.001 MLS/HR Ceftriaxone Sodium 50 ml @ 100 mls/hr DAILY@09 IV 07/16/25 09:00 07/16/25 08:45 100 MLS/HR Examination General: The patient alert and oriented in person place and time. Patient following commands HEENT: Normocephalic, atraumatic, normal reactive pupils, EOM intact, pink conjunctiva, red sclera, pink dry mucous membrane Respiratory/pulmonary: Bilateral chest expansion, no pain on palpation of chest wall, clear lungs bilaterally, vesicular murmurs present in almost all lung mireles, no associated crackles or wheezes. Cardiovascular: Tachycardic, normal S1 and S2, no murmurs Abdomen: Abdomen nondistended, normal bowel sounds, soft, pain to palpation in epigastrium, no palpable masses. Extremities: No deformities, there is no peripheral edema present at the lower extremities, normal pulses Skin: No rashes or pruritus, there is no sacral edema present at this time. Neurological: Intact cranial nerves with no focal neurologic deficits laboratory and microbiology Laboratory Tests 07/16/25 06:10 07/15/25 09:34 Test 07/16/25 06:10 Range/Units Serum Glucose 67 L 74-106 mg/dL Microbiology Date/Time Source Procedure Growth Status 07/15/25 18:44 Nose MRSA Screen - Final Complete 07/15/25 03:07 Blood Blood Culture - Preliminary NO GROWTH AFTER 24 HOURS OF INCUBATION. Resulted Labs and/or images reviewed: Labs reviewed by me, Image(s) reviewed by me Problem List/Assessment/Plan Problem List/Assessment/Plan #Alcohol Withdrawal #Alcoholism #Dehydration likely due to above #Lactic acidosis likely due to above - CIWA On 07/15 was 32, on 07/16 is 21 - Serial CIWA assessments - Ativan 2 mg IV q 2 hours - Thiamin 100 mg IV once - Folic acid 1 mg injection once - NPO - NS 1000 cc bolus x 2 - NS maintenance 75 cc/hrs - Zofran 4 mg IV q4 hours PRN - lactic acid 07/15 (5.6-5.0); 07/16- - MRSA - ceftriaxone 1 g IV daily #Possible Upper GI bleed - Protonix 40 mg IV BID - GI consult has been ordered #Intractable abdominal likely due to above - Dilaudid once #Hepatic steatosis #Transaminitis likely due to above - Abdominal CT: Diffuse hepatic steatosis #Diverticulosis - Abdominal CT: Minimal ascending diverticulosis #History of tobacco use #History of polysubstance use Patient was counseled regarding continued cessation over 12 minutes Diet: Clear liquid diet DVT prophylaxis: Not indicated GI prophylaxis: Protonix 40 mg IV daily Case discussed with Dr. Collier Goals of care discussed with the patient for over 25 minutes. FULL CODE. Plan discussed with: Patient Date of Service: Jul 16, 2025 Billing Provider: ONI COLLIER MD Common Visit Codes: [id number] INP/OBS CARE(HIGH) PHOEBE KRISHNA Jul 16, 2025 13:28 ONI COLLIER MD Jul 16, 2025 20:01
[2025-07-16] MEDS: LORazepam 2MG/ML-1ML VIAL IV SCH (18:30)
[2025-07-16] MEDS: LORazepam 2MG/ML-1ML VIAL IV PRN (21:14)
[2025-07-17] VITALS (21 sets, daily range): BP systolic 125–152; BP diastolic 54–111; PULSE 68–99; RESP 9–24; TEMP 98.1–99.5; O2SAT 94–99
[2025-07-17] MEDS: LORazepam 2MG/ML-1ML VIAL IV PRN (02:35)
[2025-07-17 05:34] LABS: Hematocrit 45.7 % (41.0-53.0); Hemoglobin 16.2 g/dL (13.5-17.5); Mean Corpuscular Volume 96.1 fL (80.0-100.0); Nucleated Red Blood Cells % 0.1 %
[2025-07-17 05:36] LABS: Mean Corpuscular Hemoglobin 34.0 pg (28.0-32.0)
[2025-07-17 05:50] LABS: Albumin 4.5 g/dL (3.2-4.8); Alkaline Phosphatase 65 U/L (46-116); Anion Gap 13 (5-15); Calcium 9.5 mg/dL (8.7-10.4); Carbon Dioxide 25 mmol/L (20-31); Chloride 100 mmol/L (98-107); Glucose 91 mg/dL (74-106); Magnesium 1.9 mg/dL (1.6-2.6); Potassium 3.6 mmol/L (3.5-5.1); Sodium 138 mmol/L (136-145); Total Protein 7.8 g/dL (5.7-8.2)
[2025-07-17 05:53] LABS: Alanine Aminotransferase 68 U/L (7-40); BUN/Creatinine Ratio 8.5 (10.0-20.0); Bilirubin, Total 1.4 mg/dL (0.2-1.0); Blood Urea Nitrogen < 5 mg/dL (9-23)
[2025-07-17] MEDS: ONDANSETRON HCL 4 MG/2 ML VIAL IV PRN (08:48)
[2025-07-17] MEDS ORDERED: ACETAMINOPHEN 325 MG TAB PO PRN (10:45)
--- NOTE | 2025-07-17 16:58 | DVHPNRES ---
Progress Note Date Seen: Jul 17, 2025 Resident Creating Document: CONSUELO SOTO RESIDENT Has the PT tested + for MRSA If YES, has PT been informed?: No Medical Necessity Reason Pt with a Central, PICC or Fol: No Subjective Review of Systems This is a 35-year-old male with a significant past medical history of generalized anxiety disorder, chronic alcohol use disorder, and sleep disturbance, who presented with persistent nausea and vomiting for two days following alcohol intake. He reports inability to tolerate oral intake, multiple episodes of retching and epigastric pain (10/10, sharp, non-radiating), and visual/tactile hallucinations since cessation of alcohol. He denies hematemesis or melena currently. He reports improved nausea and vomiting today with the ability to tolerate clear ? full liquid diet. He had three bowel movements. No abdominal distension or diarrhea. He continues to experience mild anxiety and tactile hallucinations, consistent with ongoing alcohol withdrawal, though symptoms are improving. CIWA SCORE 21 Pain is currently well-controlled with Tylenol 650 mg PRN.?No chest pain, shortness of breath, palpitations, or dizziness reported. Objective vital signs Vital Sign Date Time Temp Pulse Resp B/P (MAP) Pulse Ox O2 Delivery O2 Flow Rate FiO2 07/17/25 16:00 71 07/17/25 12:00 98.4 12 127/74 (91) 97 98.4 07/17/25 08:00 Room Air* 0 21 Total Intake and Output 07/16/25 07/16/25 07/17/25 15:00 23:00 07:00 Intake Total 50 ml 1037 ml 1335 ml Output Total 2425 ml 1600 ml Balance 50 ml -1388 ml -265 ml medications Current Medications Medications Dose Ordered Sig/Nicole Route Start Time Stop Time Status Last Admin Dose Admin Ondansetron HCl 4 mg Q4HPRN PRN IV 07/15/25 04:00 07/17/25 08:48 4 MG Pantoprazole Sodium 40 mg BID IV 07/15/25 10:07/17/25 10:18 40 MG Thiamine HCl 100 mg DAILY IV 07/15/25 10:00 07/17/25 10:18 100 MG Multivitamins 1 tab DAILY PO 07/15/25 10:00 07/17/25 10:29 1 TAB Multivit/Ca Carb/ B Cmplx/FA/Prenat 1 tab DAILY PO 07/15/25 10:00 07/17/25 10:18 1 TAB Folic Acid 1 mg/ Multivitamins 10 ml/Magnesium Sulfate 8 meq/ Thiamine HCl 100 mg/Dextrose 1,013.2 ml @ 125.001 mls/hr DAILY@1800 INJ 07/15/25 18:00 07/17/25 16:22 125.001 MLS/HR Ceftriaxone Sodium 50 ml @ 100 mls/hr DAILY@09 IV 07/16/25 09:00 07/17/25 08:47 100 MLS/HR Lorazepam 2 mg Q4HR IV 07/16/25 18:30 07/17/25 13:32 2 MG Lorazepam 2 mg Q4HPRN PRN IV 07/16/25 18:30 07/17/25 08:48 2 MG Lorazepam 2 mg Q15MP PRN IV 07/17/25 02:15 07/17/25 03:43 2 MG Acetaminophen 650 mg Q8HPRN PRN PO 07/17/25 11:30 Examination * General: Awake, alert, mildly anxious, non-diaphoretic * HEENT: No scleral icterus, moist mucous membranes * Neck: Supple, no JVD * Cardiac: Regular rate and rhythm, no murmurs * Lungs: Clear to auscultation bilaterally, no wheezes/rales * Abdomen: Soft, mildly tender epigastric region, no rebound or guarding, normoactive bowel sounds * Extremities: No edema * Neuro: Oriented x3, fine tremors noted, no focal deficits * Psych: Mild agitation and anxiety laboratory and microbiology Laboratory Tests 07/17/25 04:54 Test 07/17/25 04:54 Range/Units Serum Glucose 91 74-106 mg/dL Microbiology Date/Time Source Procedure Growth Status 07/15/25 18:44 Nose MRSA Screen - Final Complete 07/15/25 03:07 Blood Blood Culture - Preliminary NO GROWTH AFTER 48 HOURS OF INCUBATION. Resulted Problem List/Assessment/Plan Problem List/Assessment/Plan Assessment 1. Alcohol Withdrawal Syndrome Moderate, improving (WA 21, previously 32) * Manifesting as tremors, tactile hallucinations, and anxiety. * Managed per [facility] protocol with Ativan. 2. Alcohol Use Disorder, Severe chronic heavy use (89 beers/day 16 years) 3. Alcoholic Esophagitis evidenced by CT wall thickening and prior hematemesis 4. Alcohol-Related Hepatic Steatosis / Transaminitis improving LFT trend 5. Intractable Nausea and Vomiting secondary to alcohol gastritis/withdrawal 6. Lactic Acidosis (Resolved) secondary to dehydration from vomiting 7. Dehydration improving on IV hydration?8. Diverticulosis no active inflammation 9. History of Tobacco Use and Polysubstance Use 10. Anxiety Disorder Sleep Disorder [facility] Treatment Plan 1. Neurology / Psychiatry (Alcohol Withdrawal, Anxiety) * Continue Lorazepam (Ativan) 2 mg IV q2h PRN and Nicole per CIWA protocol. * Monitor CIWA score q2h and titrate accordingly. * Thiamine 100 mg IV daily, Folic acid 1 mg IV daily, Multivitamin IV daily. * Continue Ativan protocol until CIWA <10 for 24 hours. * Consider transition to PO chlordiazepoxide (Librium) taper when stable. 2. GI / Hepatology * Pantoprazole 40 mg IV BID for suspected alcoholic gastritis/esophagitis (GI bleed prophylaxis). * GI consult pending for evaluation of esophagitis and possible EGD. * Maintain full liquid diet ? advance as tolerated. * Avoid NSAIDs and hepatotoxic meds. * Monitor LFTs daily. * Continue Tylenol 2g/day for pain. 3. Infectious Disease / Prophylaxis * Ceftriaxone 1 g IV daily (empiric coverage; MRSA negative, blood cultures no growth). * Continue until infection fully ruled out and clinically improved. * Reassess after GI clearance. 4. Fluids / Electrolytes / Renal * Continue IV NS 75 mL/hr for maintenance. * Monitor BMP daily and adjust fluids to avoid hyponatremia. * Replace electrolytes per protocol (K? <4.0, Mg? <2.0). * Strict I/O monitoring. 5. Cardiovascular * Monitor HR and BP, especially with Ativan sedation. 6. Hematology * Monitor CBC daily for trends in Hgb and platelets. * No active bleed; transfusion not indicated. * Continue to monitor for anemia secondary to gastritis. 7. Endocrine / Metabolic * HbA1c 5.1% normoglycemia, continue routine glucose monitoring. * Encourage hydration, balanced diet post-withdrawal. 8. Musculoskeletal / Pain * Acetaminophen 650 mg PO q8h PRN for mild pain (avoid NSAIDs). * Avoid sedatives in combination with benzodiazepines. 9. DVT / GI / Stress Ulcer Prophylaxis * DVT prophylaxis: Sequential compression devices (no heparin due to low bleed threshold). * GI prophylaxis: Continue Pantoprazole IV BID. * Nutritional support: Multivitamin + Thiamine + Folic acid daily. Case discussed in detail with the attending physician, including the clinical presentation, diagnostic workup, and comprehensive management plan. The patient was present for the discussion and demonstrated understanding of his condition and the proposed plan Plan discussed with: Patient My Orders My Orders Orders - CONSUELO SOTO RESIDENT Procedure Category Date Status Time Acetaminophen Tablet PHA 07/17/25 In Process (Tylenol Tablet) 11:30 Dietary Evaluation Review Comments: 1) Continue MVI, thiamin, and folic acid supplementation 2) Advance to low-fat diet when medically feasible 3) Follow-up with gastroenterology 4) Follow-up with social director r/t ETOH abuse 5) Continue to monitor I&O, labs, and skin integrity Expected Outcomes/Goals: 1) appetite and labs to improve 2) diet to advance 3) f/u in 3-5 days Date of Service: Jul 17, 2025 Billing Provider: EMILY WORTHINGTON DO Common Visit Codes: [id number] INP/OBS CARE(HIGH) CONSUELO SOTO RESIDENT Jul 17, 2025 16:58 EMILY WORTHINGTON DO Jul 19, 2025 23:47
[2025-07-17] MEDS: ACETAMINOPHEN 325 MG TAB PO PRN (21:36)
[2025-07-18] VITALS (18 sets, daily range): BP systolic 121–149; BP diastolic 81–102; PULSE 63–94; RESP 12–20; TEMP 97.9–98.3; O2SAT 95–99
[2025-07-18] MEDS: MELATONIN 5 MG TAB PO ONE (01:00)
[2025-07-18 06:47] LABS: Hematocrit 49.9 % (41.0-53.0); Hemoglobin 17.1 g/dL (13.5-17.5); Mean Corpuscular Hemoglobin 33.4 pg (28.0-32.0); Mean Corpuscular Volume 97.6 fL (80.0-100.0); Nucleated Red Blood Cells % 0.0 %
[2025-07-18 07:15] LABS: Albumin 4.7 g/dL (3.2-4.8); Alkaline Phosphatase 75 U/L (46-116); Anion Gap 13 (5-15); Bilirubin, Total 1.1 mg/dL (0.2-1.0); Calcium 9.9 mg/dL (8.7-10.4); Carbon Dioxide 27 mmol/L (20-31); Chloride 100 mmol/L (98-107); Glucose 92 mg/dL (74-106); Potassium 3.9 mmol/L (3.5-5.1); Sodium 140 mmol/L (136-145); Total Protein 8.2 g/dL (5.7-8.2)
[2025-07-18 07:17] LABS: Alanine Aminotransferase 99 U/L (7-40); BUN/Creatinine Ratio 7.4 (10.0-20.0); Blood Urea Nitrogen < 5 mg/dL (9-23)
--- NOTE | 2025-07-18 11:26 | DVHPNRES ---
Progress Note Date Seen: Jul 18, 2025 Resident Creating Document: PHOEBE KRISHNA RESIDENT Has the PT tested + for MRSA If YES, has PT been informed?: No Medical Necessity Reason Pt with a Central, PICC or Fol: No Subjective Review of Systems Mr. Hobbs A 35-year-old male with prior medical history of anxiety, sleep disorders, and alcoholism, who presents today with chief complaint of nausea and vomiting. The patient states he had his last drink 2 days ago and since then has had constant nausea and vomiting. He states he has been unable to keep any food or water down during this time. this has been associated with epigastric pain described as sharp, nonradiating, /, which worsens with retching. The patient states that before coming to the ED he was having multiple emetic episodes last of which were bloody. Upon seeing blood in his vomitus the patient decided to seek out medical care at the emergency department. On evaluation in the ED, patient was hypertensive and tachycardic. Initial labs show CBC within normal range, elevated LFTs, paste 64, lactic acid 5.6. UDS is positive for cannabis. Plasma serum alcohol level is 299.8. UA is unremarkable. Abdominal CT shows moderate distal esophageal wall thickening, favor esophagitis, diffuse hepatic steatosis, minimal ascending colon diverticulosis. Chest x-ray no acute cardiopulmonary disease. CIWA score was 27. The patient was placed on NPO, started on IV fluids, and on Ativan protocol for withdrawal. The patient was admitted for further monitoring and workup. Psych: Anxiety, Addictions (Alcoholism) Past Surgical History: None Family History: None Smoke: Quit (Smoked 1 pack a day for 3 months quit 3 years ago) ALCOHOL: heavy (Drinks 8-9 beers a day and has done so for the last 16 years) Drugs: Other (Refers previous use of methamphetamines, cocaine, and ecstasy, states he quit 10 years ago) Lives: Roommate Domestic Violence: Neg ROS: 07/15/25- patient seen and examined by me today. Patient's CIWA score is 32. Patient was transferred to the [facility]. Ativan 2 g Q 2 scheduled has been ordered. We will continue to monitor the patient. 07/16/2025: 07/16/2025: Patient is doing better today. CIWA score was 21 today. Continuing Ativan 2 q2. We are also giving the patient clear liquid diet. We will continue to monitor the patient. Awaiting GI consult 07/17/2025: He reports improved nausea and vomiting today with the ability to tolerate clear ? full liquid diet. He had three bowel movements. No abdominal distension or diarrhea. He continues to experience mild anxiety and tactile hallucinations, consistent with ongoing alcohol withdrawal, though symptoms are improving. CIWA SCORE 21 Pain is currently well-controlled with Tylenol 650 mg PRN.?No chest pain, shortness of breath, palpitations, or dizziness reported. 07/18/2025: Patient was seen and examined by the bedside. Patient is able to tolerate full liquid diet. He has no abdominal distention or diarrhea. He has mild anxiety on home wakening. CIWA score is 22 today. Patient is still unable to sleep properly. Librium 10 mg p.o. q.6 scheduled added today. Objective vital signs Vital Sign Date Time Temp Pulse Resp B/P (MAP) Pulse Ox O2 Delivery O2 Flow Rate FiO2 07/18/25 08:50 98.2 07/18/25 08:00 73 16 149/102 (118) 97 07/18/25 07:37 Room Air* 0 21 Total Intake and Output 07/17/25 07/17/25 07/18/25 15:00 23:00 07:00 Intake Total 90 ml 625 ml 1390 ml Output Total 1000 ml 1500 ml Balance 90 ml -375 ml -110 ml medications Current Medications Medications Dose Ordered Sig/Nicole Route Start Time Stop Time Status Last Admin Dose Admin Ondansetron HCl 4 mg Q4HPRN PRN IV 07/15/25 04:00 07/17/25 08:48 4 MG Pantoprazole Sodium 40 mg BID IV 07/15/25 10:00 07/18/25 08:50 40 MG Thiamine HCl 100 mg DAILY IV 07/15/25 10:07/18/25 08:49 100 MG Multivitamins 1 tab DAILY PO 07/15/25 10:00 07/18/25 08:50 1 TAB Multivit/Ca Carb/ B Cmplx/FA/Prenat 1 tab DAILY PO 07/15/25 10:00 07/18/25 08:50 1 TAB Folic Acid 1 mg/ Multivitamins 10 ml/Magnesium Sulfate 8 meq/ Thiamine HCl 100 mg/Dextrose 1,013.2 ml @ 125.001 mls/hr DAILY@1800 INJ 07/15/25 18:00 07/17/25 16:22 125.001 MLS/HR Ceftriaxone Sodium 50 ml @ 100 mls/hr DAILY@09 IV 07/16/25 09:00 07/18/25 08:49 100 MLS/HR Lorazepam 2 mg Q4HR IV 07/16/25 18:30 07/18/25 10:07 2 MG Lorazepam 2 mg Q4HPRN PRN IV 07/16/25 18:30 07/17/25 08:48 2 MG Lorazepam 2 mg Q15MP PRN IV 07/17/25 02:15 07/17/25 03:43 2 MG Acetaminophen 650 mg Q8HPRN PRN PO 07/17/25 11:30 07/18/25 08:50 650 MG Chlordiazepoxide HCl 10 mg QID PO 07/18/25 12:00 Examination Patient is lying in the bed General: The patient alert and oriented in person place and time. Patient following commands HEENT: Normocephalic, atraumatic, normal reactive pupils, EOM intact, pink dry mucous membrane Respiratory/pulmonary: Bilateral chest expansion, no pain on palpation of chest wall, clear lungs bilaterally, vesicular murmurs present in almost all lung mireles, no associated crackles or wheezes. Cardiovascular: Tachycardic, normal S1 and S2, no murmurs Abdomen: Abdomen nondistended, normal bowel sounds, soft, pain to palpation in epigastrium, no palpable masses. Extremities: No deformities, there is no peripheral edema present at the lower extremities, normal pulses Skin: No rashes or pruritus, there is no sacral edema present at this time. Neurological: Intact cranial nerves with no focal neurologic deficits; CIWA 22 laboratory and microbiology Laboratory Tests 07/18/25 05:58 Test 07/18/25 05:58 Range/Units Serum Glucose 92 74-106 mg/dL Microbiology Date/Time Source Procedure Growth Status 07/15/25 18:44 Nose MRSA Screen - Final Complete 07/15/25 03:07 Blood Blood Culture - Preliminary NO GROWTH AFTER 72 HOURS OF INCUBATION. Resulted Labs and/or images reviewed: Labs reviewed by me, Image(s) reviewed by me Problem List/Assessment/Plan Problem List/Assessment/Plan #Alcohol Withdrawal #Alcoholism #Dehydration likely due to above #Lactic acidosis likely due to above - CIWA On 07/15 was 32, on 07/16 is 10 - Serial CIWA assessments - Ativan 2 mg IV q 2 hours - Librium 10 mg per oral q.6 nicole - Thiamine 100 mg IV once - Folic acid 1 mg injection once - NPO - NS 1000 cc bolus x 2 - NS maintenance 75 cc/hrs - Zofran 4 mg IV q4 hours PRN - lactic acid 07/15 (5.6-5.0); 07/16-0.7 - MRSA - ceftriaxone 1 g IV daily #Possible Upper GI bleed - clear liquid diet - Protonix 40 mg IV BID - GI consult, pending #Intractable abdominal likely due to above - Dilaudid once #Hepatic steatosis #Transaminitis likely due to above - Abdominal CT: Diffuse hepatic steatosis #Diverticulosis - Abdominal CT: Minimal ascending diverticulosis #History of tobacco use #History of polysubstance use Patient was counseled regarding continued cessation over 12 minutes Diet: Clear liquid diet DVT prophylaxis: Not indicated GI prophylaxis: Protonix 40 mg IV daily Case discussed with Dr. Balbuena Goals of care discussed with the patient for over 25 minutes. FULL CODE. Plan discussed with: Patient, Other (rn) My Orders My Orders Orders - PHOEBE KRISHNA Procedure Category Date Status Time Chlordiazepoxide Hcl PHA 07/18/25 In Process Capsule (Librium Ca 12:00 Dietary Evaluation Review Comments: 1) Continue MVI, thiamin, and folic acid supplementation 2) Advance to low-fat diet when medically feasible 3) Follow-up with gastroenterology 4) Follow-up with administrator social welfare r/t ETOH abuse 5) Continue to monitor I&O, labs, and skin integrity Expected Outcomes/Goals: 1) appetite and labs to improve 2) diet to advance 3) f/u in 3-5 days Date of Service: Jul 18, 2025 Billing Provider: PHOEBE KRISHNA Common Visit Codes: [id number] INP/OBS CARE(HIGH) PHOEBE KRISHNA Jul 18, 2025 11:26 ROX BALBUENA MD Jul 22, 2025 19:06
--- NOTE | 2025-07-18 20:15 | DVHINCON2 ---
Date of service: Jul 18, 2025 Reason for Consultation GIB History of Present Illness Per HPI: "35-year-old male with prior medical history of anxiety, sleep disorders, and alcoholism, who presents today with chief complaint of nausea and vomiting. The patient states he had his last drink 2 days ago and since then has had constant nausea and vomiting. He states he has been unable to keep any food or water down during this time. this has been associated with epigastric pain described as sharp, nonradiating, 10/10, which worsens with retching. The patient states that before coming to the ED he was having multiple emetic episodes last of which were bloody. Upon seeing blood in his vomitus the patient decided to seek out medical care at the emergency department. Patient reports previous history of EGD which showed esophagitis. On evaluation in the ED, patient was hypertensive and tachycardic. Initial labs show CBC within normal range, elevated LFTs, paste 64, lactic acid 5.6. UDS is positive for cannabis. Plasma serum alcohol level is 299.8. UA is unremarkable. Abdominal CT shows moderate distal esophageal wall thickening, favor esophagitis, diffuse hepatic steatosis, minimal ascending colon diverticulosis. Chest x-ray no acute cardiopulmonary disease. CIWA score was 27. The patient was placed on NPO, started on IV fluids, and on Ativan protocol for withdrawal. The patient was admitted for further monitoring and workup." GI service consulted for GIB. He had single episode of hematemesis. No GIB since then. He has N/V prior, due to Cannabis and heavy alcohol use. He had EGD several yrs ago. No melena/hematochezia/abd pain. Past Medical History Reviewed Past Surgical History Reviewed Family History: Diabetes mellitus G8 MOTHER Allergies: Coded Allergies: NO KNOWN ALLERGIES (Unverified , 05/24/15) Home Meds Active Scripts Acetaminophen (Acetaminophen) 500 Mg Tab, 500 MG PO Q6HP PRN for 10 Days, #40 TAB 0 Refills Prov:KRISTOPHER ORTIZ COCOA ROASTER 05/11/25 Erythromycin (Erythromycin) 5 Mg/Gm Oin, 1 APPLIC OP TID for 10 Days, #3.5 GRAMS 0 Refills Prov:KRISTOPHER ORTIZ COCOA ROASTER 03/29/25 Ketorolac Tromethamine (Ophth) (Ketorolac Tromethamine) 0.5 % Noreen, 1 DROP EACHEYE QID for 2 Days, #5 ML 0 Refills Prov:ANGELKRISTOPHER COCOA ROASTER 03/29/25 Chlordiazepoxide Hcl (Librium) 25 Mg Cp, 25 MG PO UD for 3 Days, #7 CAP take 2 tablets twice daily for 1 day, followed by 1 tablet twice daily for 1 day, followed by 1 tablet once daily for 1 day Prov:ONI YANG MD 01/11/25 Erythromycin (Erythromycin) 5 Mg/Gm Oin, 1 MG OP QID for 5 Days, #20 OIN Prov:KEVIN RUSS MD 11/24/24 Sucralfate (CARAFATE) 1 Gm Tab, 1 GM OR QID, #120 TAB 5 Refills Prov:FRANCIS MELGOZA MD 08/15/23 Pantoprazole Sodium Sesquihydr (Protonix) 40 Mg Tab, 40 MG PO DAILY, #30 TAB 5 Refills Prov:FRANCIS MELGOZA MD 08/15/23 Folic Acid-Vitamin B6-Vitamin (Folbee) Tab, 1 TAB PO DAILY for 30 Days, #30 TAB Prov:FRANCIS MELGOZA MD 08/15/23 Acetaminophen (Tylenol 8 Hour Arthritis) 650 Mg Tab, 650 MG PO TID, #30 TAB Prov:MISSY MARY 11/28/22 Aluminum Hydroxide-Mag Carb (Gaviscon Extra Strength) 1 Chw Chw, 1 CHW PO QID PRN for 10 Days, #40 TAB.CHEW Prov:ITALIA MEYER MD 10/31/22 Thiamine HCl (Thiamine Hydrochloride) 100 Mg Tab, 100 MG PO BID for 30 Days, #60 TAB Prov:ITALIA MEYER MD 10/31/22 Lorazepam (Ativan) 0.5 Mg Tab, 1 TAB PO TID for 10 Days, #30 TAB Prov:ITALIA MEYER MD 10/31/22 Current Medications Current Medications Medications (Trade) Dose Ordered Sig/Nicole Route PRN Reason Start Time Stop Time Status Last Admin Chlordiazepoxide HCl (Librium Capsule) 10 mg QID PO 07/18/25 12:00 07/18/25 17:43 Review of Systems 14 point ROS negative except mentioned above Vital Signs Vital Signs Date Time Temp Pulse Resp B/P (MAP) Pulse Ox O2 Delivery O2 Flow Rate FiO2 07/18/25 16:00 87 07/18/25 16:00 18 132/87 (102) 99 07/18/25 12:00 97.9 97.9 07/18/25 07:37 Room Air* 0 21 Physical Exam Ge: in no acute distress: CVS: S1S2+ Lungs: clear Abdomen: soft, nondistended, nontender, BS+ Labs/Diagnostic Data Labs Test 07/18/25 05:58 07/17/25 04:54 07/16/25 10:25 07/15/25 05:30 Range/Units White Blood Count 6.4 # 4.4-10.8 10^3/uL Red Blood Count 5.11 4.5-5.90 10^6/uL Hemoglobin 17.1 13.5-17.5 g/dL Hematocrit 49.9 41.0-53.0 % Mean Corpuscular Volume 97.6 80.0-100.0 fL Mean Corpuscular Hemoglobin 33.4 H 28.0-32.0 pg Mean Corpuscular Hemoglobin Concent 34.2 32.0-36.0 g/dL Red Cell Distribution Width 12.8 11.8-14.3 % Platelet Count 184 140-450 10^3/uL Mean Platelet Volume 8.5 6.9-10.8 fL Neutrophils (%) (Auto) 67.8 37.0-80.0 % Lymphocytes (%) (Auto) 24.2 10.0-50.0 % Monocytes (%) (Auto) 5.1 0.0-12.0 % Eosinophils (%) (Auto) 2.1 0.0-7.0 % Basophils (%) (Auto) 0.8 0.0-2.0 % Neutrophils # (Auto) 4.4 1.6-8.6 10 ^3/uL Lymphocytes # (Auto) 1.6 0.4-5.4 10 ^3/uL Monocytes # (Auto) 0.3 0-1.3 10 ^3/uL Eosinophils # (Auto) 0.1 0-0.8 10 ^3/uL Basophils # (Auto) 0.1 0-0.2 10 ^3/uL Nucleated Red Blood Cells 0.0 % Sodium Level 140 136-145 mmol/L Potassium Level 3.9 3.5-5.1 mmol/L Chloride Level 100 98-107 mmol/L Carbon Dioxide Level 27 20-31 mmol/L Anion Gap 13 5-15 Blood Urea Nitrogen < 5 L 9-23 mg/dL Creatinine 0.68 L 0.700-1.30 mg/dL Glomerular Filtration Rate Calc 124 >90 mL/min BUN/Creatinine Ratio 7.4 L 10.0-20.0 Serum Glucose 92 74-106 mg/dL Calcium Level 9.9 8.7-10.4 mg/dL Total Bilirubin 1.1 H 0.2-1.0 mg/dL Aspartate Amino Transferase (AST) 127 H 13-40 U/L Alanine Aminotransferase (ALT) 99 H 7-40 U/L Alkaline Phosphatase 75 46-116 U/L Total Protein 8.2 5.7-8.2 g/dL Albumin 4.7 3.2-4.8 g/dL Magnesium Level 1.9 1.6-2.6 mg/dL Lactic Acid Level 0.7 0.4-2.0 mmol/L Urine Color Yellow Yellow Urine Clarity Clear Clear Urine pH 6.0 5.0-9.0 Urine Specific [place] 1.038 H 1.001-1.035 Urine Protein 3+ H Negative Urine Ketones 2+ H Negative Urine Blood 2+ H Negative /uL Urine Nitrite Negative Negative Urine Bilirubin Negative Negative Urine Urobilinogen Normal Negative mg/dL Urine Leukocyte Esterase Negative Negative /uL Urine RBC 1 0 - 3 /hpf Urine Microscopic WBC < 1 0-3 /HPF Urine Squamous Epithelial Cells Few <5 /hpf Urine Bacteria None seen None Seen /hpf Urine Hyaline Casts Mod 0 - 2 /lpf Urine Mucus Few None Seen Urine Glucose Trace Normal mg/dL Urine Opiates Screen Neg NEGATIVE Urine Fentanyl Screen Neg NEGATIVE Urine Barbiturates Screen Neg NEGATIVE Urine Phencyclidine Screen Neg NEGATIVE Urine Amphetamines Screen Neg NEGATIVE Urine Benzodiazepines Screen Neg NEGATIVE Urine Cocaine Screen Neg NEGATIVE Urine Cannabinoids Screen Pos NEGATIVE Test 07/15/25 03:05 07/14/25 21:54 Range/Units Hemoglobin A1c 5.1 <5.7 % A1C Phosphorus Level 3.9 2.4-5.1 mg/dL Vitamin B12 Level 672 211-911 pg/mL Vitamin D 25-Hydroxy 24.1 L 30.0-100 ng/mL Thyroid Stimulating Hormone (TSH) 0.71 0.55-4.78 uIU/mL Lipase 64 H 12-53 U/L Plasma/Serum Blood Alcohol 299.8 H <10 mg/dL Microbiology Date/Time Source Procedure Growth Status 07/15/25 18:44 Nose MRSA Screen - Final Complete 07/15/25 03:07 Blood Blood Culture - Preliminary NO GROWTH AFTER 72 HOURS OF INCUBATION. Resulted Assessment #Hematemesis, single episode #Distal esophageal thickening, likely esophagitis #Cannabis use, alcohol abuse #Elevated liver enzymes #Fatty liver, alcoholic #Diverticulosis -Hb 17.1, stable Protonix 40 mg BID Diet as tolerated, ok to dc home. Antiemetics prn Encouraged Cannabis and alcohol abstinence. Discussed on risks in detail Fibroscan as out pt. GI clinic f/u in 2-4 weeks after dc Care plan discussed with pt and RN bedside in detail Thank you for the consult Plan discussed with: Patient, Other LUIS ALBERTO CORONA MD Jul 18, 2025 20:15
[2025-07-18] MEDS: MELATONIN 5 MG TAB PO SCH (22:15)
[2025-07-19] VITALS (19 sets, daily range): BP systolic 117–132; BP diastolic 81–93; PULSE 66–97; RESP 12–20; TEMP 97.9–99.9; O2SAT 95–99
[2025-07-19 07:55] LABS: Chloride 103 mmol/L (98-107); Hematocrit 48.3 % (41.0-53.0); Hemoglobin 17.0 g/dL (13.5-17.5); Mean Corpuscular Hemoglobin 34.3 pg (28.0-32.0); Mean Corpuscular Volume 97.3 fL (80.0-100.0); Nucleated Red Blood Cells % 0.2 %; Potassium 3.8 mmol/L (3.5-5.1); Sodium 142 mmol/L (136-145)
[2025-07-19 07:56] LABS: Carbon Dioxide 27 mmol/L (20-31)
[2025-07-19 07:57] LABS: Calcium 9.7 mg/dL (8.7-10.4)
[2025-07-19 08:01] LABS: Glucose 86 mg/dL (74-106)
[2025-07-19 08:02] LABS: BUN/Creatinine Ratio 17.9 (10.0-20.0); Blood Urea Nitrogen 10 mg/dL (9-23)
[2025-07-19 08:54] LABS: Anion Gap 12 (5-15)
--- NOTE | 2025-07-19 14:18 | DVHPNRES ---
Progress Note Date Seen: Jul 19, 2025 Resident Creating Document: PHOEBE KRISHNA RESIDENT Has the PT tested + for MRSA If YES, has PT been informed?: No Medical Necessity Reason Pt with a Central, PICC or Fol: No Subjective Review of Systems Mr. Hobbs A 35-year-old male with prior medical history of anxiety, sleep disorders, and alcoholism, who presents today with chief complaint of nausea and vomiting. The patient states he had his last drink 2 days ago and since then has had constant nausea and vomiting. He states he has been unable to keep any food or water down during this time. this has been associated with epigastric pain described as sharp, nonradiating, /, which worsens with retching. The patient states that before coming to the ED he was having multiple emetic episodes last of which were bloody. Upon seeing blood in his vomitus the patient decided to seek out medical care at the emergency department. On evaluation in the ED, patient was hypertensive and tachycardic. Initial labs show CBC within normal range, elevated LFTs, paste 64, lactic acid 5.6. UDS is positive for cannabis. Plasma serum alcohol level is 299.8. UA is unremarkable. Abdominal CT shows moderate distal esophageal wall thickening, favor esophagitis, diffuse hepatic steatosis, minimal ascending colon diverticulosis. Chest x-ray no acute cardiopulmonary disease. CIWA score was 27. The patient was placed on NPO, started on IV fluids, and on Ativan protocol for withdrawal. The patient was admitted for further monitoring and workup. Psych: Anxiety, Addictions (Alcoholism) Past Surgical History: None Family History: None Smoke: Quit (Smoked 1 pack a day for 3 months quit 3 years ago) ALCOHOL: heavy (Drinks 8-9 beers a day and has done so for the last 16 years) Drugs: Other (Refers previous use of methamphetamines, cocaine, and ecstasy, states he quit 10 years ago) Lives: Roommate Domestic Violence: Neg ROS: 07/15/25- patient seen and examined by me today. Patient's CIWA score is 32. Patient was transferred to the [facility]. Ativan 2 g Q 2 scheduled has been ordered. We will continue to monitor the patient. 07/16/2025: 07/16/2025: Patient is doing better today. CIWA score was 21 today. Continuing Ativan 2 q2. We are also giving the patient clear liquid diet. We will continue to monitor the patient. Awaiting GI consult 07/17/2025: He reports improved nausea and vomiting today with the ability to tolerate clear ? full liquid diet. He had three bowel movements. No abdominal distension or diarrhea. He continues to experience mild anxiety and tactile hallucinations, consistent with ongoing alcohol withdrawal, though symptoms are improving. CIWA SCORE 21. Pain is currently well-controlled with Tylenol 650 mg PRN.?No chest pain, shortness of breath, palpitations, or dizziness reported. 07/18/2025: Patient was seen and examined by the bedside. Patient is able to tolerate full liquid diet. He has no abdominal distention or diarrhea. He has mild anxiety on home wakening. CIWA score is 22 today. Patient is still unable to sleep properly. Librium 10 mg p.o. q.6 scheduled added today. 07/19/2025: Patient was seen and examined at the bedside. Today morning the patient's CIWA score was 18. Patient still continues to have hallucinations both auditory and visual. We transferred him to [facility] today. Patient has been given a soft mechanical diet today. GI consult suggests a FibroScan outpatient and to follow up in 2-4 weeks. We will continue to monitor the patient and his CIWA score. Librium 10 mg q.6 scheduled is being continued and Ativan to Q 2 has been stopped. Objective vital signs Vital Sign Date Time Temp Pulse Resp B/P (MAP) Pulse Ox O2 Delivery O2 Flow Rate FiO2 07/19/25 12:00 92 14 129/91 (104) 96 07/19/25 11:54 Room Air* 0 21 07/19/25 08:00 97.9 97.9 Total Intake and Output 07/18/25 07/18/25 07/19/25 15:00 23:00 07:00 Intake Total 50 ml 1375 ml 1050 ml Output Total 1700 ml 2800 ml Balance 50 ml -325 ml -1750 ml medications Current Medications Medications Dose Ordered Sig/Nicole Route Start Time Stop Time Status Last Admin Dose Admin Ondansetron HCl 4 mg Q4HPRN PRN IV 07/15/25 04:00 07/17/25 08:48 4 MG Pantoprazole Sodium 40 mg BID IV 07/15/25 10:00 07/19/25 09:30 40 MG Thiamine HCl 100 mg DAILY IV 07/15/25 10:00 07/19/25 09:31 100 MG Multivitamins 1 tab DAILY PO 07/15/25 10:00 07/19/25 09:30 1 TAB Multivit/Ca Carb/ B Cmplx/FA/Prenat 1 tab DAILY PO 07/15/25 10:00 07/19/25 09:30 1 TAB Folic Acid 1 mg/ Multivitamins 10 ml/Magnesium Sulfate 8 meq/ Thiamine HCl 100 mg/Dextrose 1,013.2 ml @ 125.001 mls/hr DAILY@1800 INJ 07/15/25 18:00 07/18/25 17:43 125.001 MLS/HR Ceftriaxone Sodium 50 ml @ 100 mls/hr DAILY@09 IV 07/16/25 09:00 07/19/25 09:30 100 MLS/HR Lorazepam 2 mg Q4HPRN PRN IV 07/16/25 18:30 07/19/25 10:28 2 MG Lorazepam 2 mg Q15MP PRN IV 07/17/25 02:15 07/17/25 03:43 2 MG Acetaminophen 650 mg Q8HPRN PRN PO 07/17/25 11:30 07/18/25 08:50 650 MG Chlordiazepoxide HCl 10 mg QID PO 07/18/25 12:00 07/19/25 11:51 10 MG Melatonin 5 mg HS PO 07/18/25 22:00 07/18/25 22:15 5 MG Examination General: The patient alert and oriented in person place and time. Patient following commands HEENT: Normocephalic, atraumatic, normal reactive pupils, EOM intact, pink conjunctiva, red sclera, pink dry mucous membrane Respiratory/pulmonary: Bilateral chest expansion, no pain on palpation of chest wall, clear lungs bilaterally, vesicular murmurs present in almost all lung mireles, no associated crackles or wheezes. Cardiovascular: Tachycardic, normal S1 and S2, no murmurs Abdomen: Abdomen nondistended, normal bowel sounds, soft, pain to palpation in epigastrium, no palpable masses. Extremities: No deformities, there is no peripheral edema present at the lower extremities, normal pulses Skin: No rashes or pruritus, there is no sacral edema present at this time. Neurological: Intact cranial nerves with no focal neurologic deficits laboratory and microbiology Laboratory Tests 07/19/25 06:12 Test 07/19/25 06:12 Range/Units Serum Glucose 86 74-106 mg/dL Microbiology Date/Time Source Procedure Growth Status 07/15/25 18:44 Nose MRSA Screen - Final Complete 07/15/25 03:07 Blood Blood Culture - Preliminary NO GROWTH AFTER 72 HOURS OF INCUBATION. Resulted Labs and/or images reviewed: Labs reviewed by me Problem List/Assessment/Plan Problem List/Assessment/Plan #Alcohol Withdrawal #Alcoholism #Dehydration likely due to above #Lactic acidosis likely due to above - CIWA On 07/15 was 32, on 07/16 is 23, 6 is 18 - Serial CIWA assessments - Librium 10 mg p.o. q.6 scheduled - Thiamin 100 mg IV once - Folic acid 1 mg injection once - NPO - NS 1000 cc bolus x 2 - NS maintenance 75 cc/hrs - Zofran 4 mg IV q4 hours PRN - lactic acid 07/15 (5.6-5.0); 07/16- - MRSA negative - Blood cultures preliminary are negative - ceftriaxone 1 g IV daily #Possible Upper GI bleed - mechanical soft diet - Protonix 40 mg IV BID - GI consult has been ordered #Intractable abdominal likely due to above - Dilaudid once #Hepatic steatosis #Transaminitis likely due to above - Abdominal CT: Diffuse hepatic steatosis #Diverticulosis - Abdominal CT: Minimal ascending diverticulosis #History of tobacco use #History of polysubstance use Patient was counseled regarding continued cessation over 12 minutes Diet: Mechanical soft diet DVT prophylaxis: Not indicated GI prophylaxis: Protonix 40 mg IV daily Case discussed with Dr. Collier Goals of care discussed with the patient for over 25 minutes. FULL CODE. Plan discussed with: Patient, Other (rn) My Orders My Orders Orders - PHOEBE KRISHNA RESIDENT Procedure Category Date Status Time Mechanical Soft Diet DIET 07/19/25 Transmitted Breakfast Transfer Orders XFER 07/19/25 Transmitted 14:06 Dietary Evaluation Review Comments: 1) Continue MVI, thiamin, and folic acid supplementation 2) Advance to low-fat diet when medically feasible 3) Follow-up with gastroenterology 4) Follow-up with manager social responsibility r/t ETOH abuse 5) Continue to monitor I&O, labs, and skin integrity Expected Outcomes/Goals: 1) appetite and labs to improve 2) diet to advance 3) f/u in 3-5 days Date of Service: Jul 19, 2025 Billing Provider: ONI COLLIER MD Common Visit Codes: [id number] INP/OBS CARE(HIGH) PHOEBE KRISHNA RESIDENT Jul 19, 2025 14:18 ONI COLLIER MD Jul 19, 2025 18:23
[2025-07-20] VITALS: BP 105/78; PULSE 66; PULSE 70; RESP 14; RESP 15; TEMP 98.3; O2SAT 96; O2SAT 97
[2025-07-20 04:00] VITALS: BP 117/81; PULSE 62; PULSE 66; RESP 15; TEMP 97.7; O2SAT 98
[2025-07-20 05:48] LABS: Hematocrit 47.1 % (41.0-53.0); Hemoglobin 16.2 g/dL (13.5-17.5); Mean Corpuscular Hemoglobin 33.5 pg (28.0-32.0); Mean Corpuscular Volume 97.5 fL (80.0-100.0); Nucleated Red Blood Cells % 0.1 %
[2025-07-20 05:52] LABS: Chloride 102 mmol/L (98-107); Potassium 4.4 mmol/L (3.5-5.1); Sodium 141 mmol/L (136-145)
[2025-07-20 05:53] LABS: Anion Gap 10 (5-15); Carbon Dioxide 29 mmol/L (20-31)
[2025-07-20 05:54] LABS: Calcium 9.6 mg/dL (8.7-10.4)
[2025-07-20 05:58] LABS: Glucose 94 mg/dL (74-106)
[2025-07-20 05:59] LABS: BUN/Creatinine Ratio 9.2 (10.0-20.0)
[2025-07-20 06:01] LABS: Blood Urea Nitrogen 6 mg/dL (9-23)
[2025-07-20 08:00] VITALS: BP 139/92; PULSE 66; PULSE 68; PULSE 81; PULSE 88; RESP 16; TEMP 97.9; TEMP 98; O2SAT 96; O2SAT 98
[2025-07-20] MEDS ORDERED: CHL25C PO (08:54)
[2025-07-20 12:00] VITALS: BP 147/91; PULSE 85; PULSE 86; RESP 16; RESP 25; TEMP 98.7; O2SAT 98
--- NOTE | 2025-07-20 13:37 | DVHDSRES ---
Discharge Summary Date of Admission Resident Creating Document: PHOEBE KRISHNA RESIDENT Jul 15, 2025 at 03:53 Date of Discharge: Jul 20, 2025 Admitting Diagnosis Alcohol withdrawal Labs/Diagnostic Data: Laboratory Results Test 07/20/25 05:11 07/18/25 05:58 07/17/25 04:54 07/16/25 10:25 White Blood Count 5.5 10^3/uL (4.4-10.8) Red Blood Count 4.83 10^6/uL (4.5-5.90) Hemoglobin 16.2 g/dL (13.5-17.5) Hematocrit 47.1 % (41.0-53.0) Mean Corpuscular Volume 97.5 fL (80.0-100.0) Mean Corpuscular Hemoglobin 33.5 pg (28.0-32.0) Mean Corpuscular Hemoglobin Concent 34.3 g/dL (32.0-36.0) Red Cell Distribution Width 13.1 % (11.8-14.3) Platelet Count 171 10^3/uL (140-450) Mean Platelet Volume 8.9 fL (6.9-10.8) Neutrophils (%) (Auto) 46.1 % (37.0-80.0) Lymphocytes (%) (Auto) 39.8 % (10.0-50.0) Monocytes (%) (Auto) 9.6 % (0.0-12.0) Eosinophils (%) (Auto) 3.3 % (0.0-7.0) Basophils (%) (Auto) 1.2 % (0.0-2.0) Neutrophils # (Auto) 2.5 10 ^3/uL (1.6-8.6) Lymphocytes # (Auto) 2.2 10 ^3/uL (0.4-5.4) Monocytes # (Auto) 0.5 10 ^3/uL (0-1.3) Eosinophils # (Auto) 0.2 10 ^3/uL (0-0.8) Basophils # (Auto) 0.1 10 ^3/uL (0-0.2) Nucleated Red Blood Cells 0.1 % Sodium Level 141 mmol/L (136-145) Potassium Level 4.4 mmol/L (3.5-5.1) Chloride Level 102 mmol/L (98-107) Carbon Dioxide Level 29 mmol/L (20-31) Anion Gap 10 (5-15) Blood Urea Nitrogen 6 mg/dL (9-23) Creatinine 0.65 mg/dL (0.700-1.30) Glomerular Filtration Rate Calc 125 mL/min (>90) BUN/Creatinine Ratio 9.2 (10.0-20.0) Serum Glucose 94 mg/dL (74-106) Calcium Level 9.6 mg/dL (8.7-10.4) Total Bilirubin 1.1 mg/dL (0.2-1.0) Aspartate Amino Transferase (AST) 127 U/L (13-40) Alanine Aminotransferase (ALT) 99 U/L (7-40) Alkaline Phosphatase 75 U/L (46-116) Total Protein 8.2 g/dL (5.7-8.2) Albumin 4.7 g/dL (3.2-4.8) Magnesium Level 1.9 mg/dL (1.6-2.6) Lactic Acid Level 0.7 mmol/L (0.4-2.0) Test 07/15/25 05:30 07/15/25 03:05 07/14/25 21:54 Urine Color Yellow (Yellow) Urine Clarity Clear (Clear) Urine pH 6.0 (5.0-9.0) Urine Specific [place] 1.038 (1.001-1.035) Urine Protein 3+ (Negative) Urine Ketones 2+ (Negative) Urine Blood 2+ /uL (Negative) Urine Nitrite Negative (Negative) Urine Bilirubin Negative (Negative) Urine Urobilinogen Normal mg/dL (Negative) Urine Leukocyte Esterase Negative /uL (Negative) Urine RBC 1 /hpf (0 - 3) Urine Microscopic WBC < 1 /HPF (0-3) Urine Squamous Epithelial Cells Few /hpf (<5) Urine Bacteria None seen /hpf (None Seen) Urine Hyaline Casts Mod /lpf (0 - 2) Urine Mucus Few (None Seen) Urine Glucose Trace mg/dL (Normal) Urine Opiates Screen Neg (NEGATIVE) Urine Fentanyl Screen Neg (NEGATIVE) Urine Barbiturates Screen Neg (NEGATIVE) Urine Phencyclidine Screen Neg (NEGATIVE) Urine Amphetamines Screen Neg (NEGATIVE) Urine Benzodiazepines Screen Neg (NEGATIVE) Urine Cocaine Screen Neg (NEGATIVE) Urine Cannabinoids Screen Pos (NEGATIVE) Hemoglobin A1c 5.1 % A1C (<5.7) Phosphorus Level 3.9 mg/dL (2.4-5.1) Vitamin B12 Level 672 pg/mL (211-911) Vitamin D 25-Hydroxy 24.1 ng/mL (30.0-100) Thyroid Stimulating Hormone (TSH) 0.71 uIU/mL (0.55-4.78) Lipase 64 U/L (12-53) Plasma/Serum Blood Alcohol 299.8 mg/dL (<10) Other Laboratory Tests 07/20/25 05:11 Brief Hx & Hospital Course: Mr. Hobbs A 35-year-old male with prior medical history of anxiety, sleep disorders, and alcoholism, who presents today with chief complaint of nausea and vomiting. The patient states he had his last drink 2 days ago and since then has had constant nausea and vomiting. He states he has been unable to keep any food or water down during this time. this has been associated with epigastric pain described as sharp, nonradiating, 10/10, which worsens with retching. The patient states that before coming to the ED he was having multiple emetic episodes last of which were bloody. Upon seeing blood in his vomitus the patient decided to seek out medical care at the emergency department. On evaluation in the ED, patient was hypertensive and tachycardic. Initial labs show CBC within normal range, elevated LFTs, paste 64, lactic acid 5.6. UDS is positive for cannabis. Plasma serum alcohol level is 299.8. UA is unremarkable. Abdominal CT shows moderate distal esophageal wall thickening, favor esophagitis, diffuse hepatic steatosis, minimal ascending colon diverticulosis. Chest x-ray no acute cardiopulmonary disease. CIWA score was 27. The patient was placed on NPO, started on IV fluids, and on Ativan protocol for withdrawal. The patient was admitted for further monitoring and workup. Psych: Anxiety, Addictions (Alcoholism) Past Surgical History: None Family History: None Smoke: Quit (Smoked 1 pack a day for 3 months quit 3 years ago) ALCOHOL: heavy (Drinks 8-9 beers a day and has done so for the last 16 years) Drugs: Other (Refers previous use of methamphetamines, cocaine, and ecstasy, states he quit 10 years ago) Lives: Roommate Domestic Violence: Neg Brief history of hospitalization: Patient came in with alcohol withdrawal and several episodes of vomiting as well as hematemesis most likely due to alcohol. He was dehydrated on presentation and had lactic acidosis. We gave him IV fluids, thiamine supplement, Folic acid and multivitamins. CIWA score on admission was 32 and on the subsequent days was above 20. We continued giving him Ativan 2 mg IV Q 2 hours which was later switched to Ativan 2 mg IV q.4 hours and then later to chlordiazepoxide 10 mg p.o. Initially we kept the patient NPO and later started him on clear liquid diet. For the nausea Zofran 4 mg was given. Antibiotics ceftriaxone 1 g IV was administered daily. An abdominal CT was done for his abdominal pain and vomiting which showed moderate distal esophageal wall thickening, favoring esophagitis. Diffuse hepatic steatosis and minimal ascending colon diverticulitis was also seen. GI consult was done who suggested Protonix 40 mg b.i.d. which was administered to the patient daily. GI also suggested a FibroScan as outpatient and to follow up in GI clinic within 2-4 weeks after discharge. Patient also has a history of tobacco and polysubstance use and patient was counseled regarding continued cessation. Today the patient is stable and can be discharged home. He has been counseled to continue the Librium 25 mg per orally for 3 days. patient has communicated understanding and has agreed to the discharge plan. Pt is lying on bed General Appearance: Alert, Oriented X3, Cooperative, Not in acute distress HEENT: Atraumatic, Mucous membranes moist/pink Respiratory: Clear to auscultation, Normal air movement, No added sounds Cardiovascular: Regular rate, Normal S1, Normal S2, No murmurs Abdominal: Active bowel sounds, Soft, no distention, no tenderness Extremities: No edema, Normal pulses, No tenderness/swelling Skin: No Significant rash, except past surgical scars Neuro: Normal speech, sensorimotor deficits none Psych/Mental Status: Mental status NL, Mood NL Nurse was there as inclusion specialist during examination Operations or Procedures PROCEDURE(s): ABPL - CT AB PEL WO CON-NO ORAL OR IV REASON: abd pain Impression: Moderate distal esophageal wall thickening, favor esophagitis. Please correlate with clinical exam proceed further workup if warranted. Diffuse hepatic steatosis. Minimal ascending colon diverticulosis. CHEST RADIOGRAPH Indication: Possible aspiration. IMPRESSION: 1. No acute cardiopulmonary disease. Condition at Discharge: Stable Final Diagnosis/Problems List #Alcohol Withdrawal #Alcoholism #Dehydration likely due to above #Lactic acidosis likely due to above #Upper GI bleed #Distal esophageal thickening, likely esophagitis #Intractable abdominal likely due to above #Hepatic steatosis #Transaminitis likely due to above #Diverticulosis #History of tobacco use #History of polysubstance use #Cannabis use Discharge Disposition: Home Discharge Instruct/Medications Diet: Consistent carbohydrate, Cardiac 2g Na,low cholest Diet comment: CARDIAC CONSISTENT CARBOHYDRATE Activity: No Restrictions, As Tolerated Follow Up/Referral: Follow up with PCP in 10 days Follow up at ID clinic within 2 weeks Medications: Librium 25 mg per orally for 3 days Resume all home medications Scheduled Acetaminophen (Tylenol 8 Hour Arthritis), 650 MG PO TID Chlordiazepoxide Hcl (Librium), 25 MG PO UD Chlordiazepoxide Hcl (Librium), 25 MG PO UD Erythromycin (Erythromycin), 1 MG OP QID Erythromycin (Erythromycin), 1 APPLIC OP TID Folic Acid-Vitamin B6-Vitamin (Folbee), 1 TAB PO DAILY Ketorolac Tromethamine (Ophth) (Ketorolac Tromethamine), 1 DROP EACHEYE QID Lorazepam (Ativan), 1 TAB PO TID Pantoprazole Sodium Sesquihydr (Protonix), 40 MG PO DAILY Sucralfate (Carafate), 1 GM OR QID Thiamine HCl (Thiamine Hydrochloride), 100 MG PO BID Scheduled PRN Acetaminophen (Acetaminophen), 500 MG PO Q6HP PRN Aluminum Hydroxide-Mag Carb (Gaviscon Extra Strength), 1 CHW PO QID PRN Discharge Statement: "Patient was advised to return to the ER or call 911 if any headaches, dizziness, shortness of breath, chest pain, abdominal pain, bleeding, fevers, or worsening of medical condition. Patient was counseled about treatment plan, medications, possible side effects, patientverbalized understanding. All questions were answered to the best of my ability. This discharge took greater then 30 minutes in planning, reviewing documentation, counseling the patient, and discussing with other team members." ASSESSMENT ASSESSMENT Assessment Alcohol Withdrawal Date of Service: Jul 20, 2025 Billing Provider: ONI YANG MD Common Visit Codes: 52142-TCG/OBS DISCH DAY >30min PHOEBE KRISHNA RESIDENT Jul 20, 2025 13:37 ONI YANG MD Jul 21, 2025 14:51
[2025-07-21 22:07] LABS: Vitamin B1, Whole Blood 110.1 nmol/L (66.5-200.0)
== END 2025-07-20 14:45 | disposition home or self-care (01) | DRG 243 ==
LOC: EDBD 21:07 → ER 21:07 → OVERFLOW 07-15 03:53 → DOU 07-15 17:27
PROVIDERS: ADMIT Student in an Organized Health Care Education/Training Program; ATTEND Student in an Organized Health Care Education/Training Program
DX: K20.91 Esophagitis, unspecified with bleeding (principal); N17.0 Acute kidney failure with tubular necrosis; E87.20 Acidosis, unspecified; K57.30 Diverticulosis of large intestine without perforation or abscess without bleeding; E86.0 Dehydration; F10.239 Alcohol dependence with withdrawal, unspecified; K70.0 Alcoholic fatty liver; Y90.8 Blood alcohol level of 240 mg/100 ml or more; Z79.899 Other long term (current) drug therapy; F32.A Depression, unspecified; F12.90 Cannabis use, unspecified, uncomplicated; F41.9 Anxiety disorder, unspecified; M10.9 Gout, unspecified; I10 Essential (primary) hypertension; Z83.3 Family history of diabetes mellitus; Z87.891 Personal history of nicotine dependence
CPT/HCPCS: 36415; 71045; 74176; 80048; 80053; 80307; 80320; 81001; 82306; 82607; 83036; 83605; 83690; 83735; 84100; 84425; 84443; 85025; 87040; 87081; 96365; 96372; G0378; J2405; J2470; J3490; J7060